=== PATIENT | male | born 1990 | race Caucasian/White ===

== ENCOUNTER 2023-04-05 10:16 | Inpatient (IN) | payer OTHER ==
[2023-04-05 10:31] LABS: Glucose,Whole Blood 105 mg/dL (70-110)
--- NOTE | 2023-04-05 10:52 | ED ---
General Adult HPI - General Chief complaint: Weakness Stated complaint: Leg Weakness Time Seen by Provider: 04/05/23 10:26 Source: patient, EMS, RN notes reviewed Mode of arrival: EMS Limitations: no limitations - History of Present Illness Initial comments: Patient is a pleasant 32-year-old male presenting to the emergency department with concerns with leg problems. Symptoms have been occurring for years, more over the past year. Patient occasionally uses a cane to help her balance. Patient states symptoms may be a little bit worse the last few days. Patient has been at [facility] secondary to opioid and benzodiazepine abuse. Patient amiss to having history of previous IV DA. Patient states symptoms are not significantly worse from baseline. Patient does have discomfort of his knees and feet bilateral. No new isolated area of weakness. No fever. No significant back pain. No incontinence or retention of bowel or bladder. - Related Data Allergies Allergy/AdvReac Type Severity Reaction Status Date / Time No Known Allergies Allergy Verified 04/05/23 10:23 Review of Systems ROS Statement: Those systems with pertinent positive or pertinent negative responses have been documented in the HPI. ROS Other: All systems not noted in ROS Statement are negative. Constitutional: Denies: fever Eyes: Denies: eye pain ENT: Denies: ear pain Respiratory: Denies: cough Cardiovascular: Denies: chest pain Endocrine: Denies: fatigue Gastrointestinal: Denies: abdominal pain Genitourinary: Denies: dysuria Musculoskeletal: Reports: as per HPI Skin: Denies: rash Neurological: Denies: headache, confusion Past Medical History Additional Past Medical History / Comment(s): collapsed lung had a chest tube once- states he is too young to remember why it happened History of Any Multi-Drug Resistant Organisms: None Reported Past Surgical History: No Surgical Hx Reported Past Psychological History: Anxiety, Bipolar, Depression Smoking Status: Current every day smoker Past Alcohol Use History: Occasional Past Drug Use History: Opiates, Prescription Drug Abuse General Exam Limitations: no limitations General appearance: alert, in no apparent distress Head exam: Present: atraumatic Eye exam: Present: normal appearance Neck exam: Present: normal inspection. Absent: tenderness Respiratory exam: Present: normal lung sounds bilaterally Cardiovascular Exam: Present: regular rate, normal rhythm Expanded Peripheral pulses: 2+: Dorsalis Pedis (R), Dorsalis Pedis (L) GI/Abdominal exam: Present: soft. Absent: tenderness Extremities exam: Present: normal inspection, full ROM, tenderness (Minimal tenderness left knee) Back exam: Present: normal inspection. Absent: tenderness Neurological exam: Present: alert. Absent: motor sensory deficit Expanded Neurological exam: Present: protecting the airway Speech: Present: fluid speech Sensory exam: Upper Extremity Light Touch: Normal, Lower Extremity Light Touch: Normal Motor strength exam: RUE: 5, LUE: 5, RLE: 5, LLE: 5 Eye Response: (4) open spontaneously Motor Response: (6) obeys commands Verbal Response: (5) oriented Psychiatric exam: Present: normal affect, normal mood Skin exam: Present: normal color Course Vital Signs 04/05/23 04/05/23 10:18 12:02 Temperature 99.1 F 98.8 F Pulse Rate 51 L 48 L Respiratory 18 18 Rate Blood Pressure 123/80 131/83 O2 Sat by Pulse 98 98 Oximetry EKG Findings - EKG Results: EKG: interpreted by ERMD (Nonspecific ST-T), sinus rhythm, normal axis, normal QRS EKG shows: bradycardia Medical Decision Making - Medical Decision Making Was pt. sent in by a medical professional or institution (, PA, AUTOMATIC SPREADER OPERATOR, urgent care, hospital, or group home...) When possible be specific @ -Patient transferred from [facility] Did you speak to anyone other than the patient for history (EMS, parent, family, police, friend...)? What history was obtained from this source @ -No Did you review nursing and triage notes (agree or disagree)? Why? @ -I reviewed and agree with nursing and triage notes Were old charts reviewed (outside hosp., previous admission, EMS record, old EKG, old radiological studies, urgent care reports/EKG's, group home records)? Report findings @ -Reviewed records from [facility] Differential Diagnosis (chest pain, altered mental status, abdominal pain women, abdominal pain men, vaginal bleeding, weakness, fever, dyspnea, syncope, headache, dizziness, GI bleed, back pain, seizure, CVA, palpatations, mental health, musculoskeletal)? @ -not applicable EKG interpreted by me (3pts min.). @ -As above X-rays interpreted by me (1pt min.). @ -Chest x-ray and the x-ray shows no acute process CT interpreted by me (1pt min.). @ -None done U/S interpreted by me (1pt. min.). @ -None done What testing was considered but not performed or refused? (CT, X-rays, U/S, labs)? Why? @ -None What meds were considered but not given or refused? Why? @ -None Did you discuss the management of the patient with other professionals (professionals i.e. Dr., PA, AUTOMATIC SPREADER OPERATOR, lab, RT, psych nurse, social science teacher, health and safety specialist, teacher, traffic maintenance officer, bottle caser)? Give summary @ -Case was discussed with [facility] emergency department physician Dr. Isaac, will admit covering hospital call. He would like to evaluate patient prior to any consults. Was smoking cessation discussed for >3mins.? @ -No Was critical care preformed (if so, how long)? @ -No Were there social determinants of health that impacted care today? How? (Homelessness, low income, unemployed, alcoholism, drug addiction, transportation, low edu. Level, literacy, decrease access to med. care, fpc, rehab)? @ -Joce MARTEL Was there de-escalation of care discussed even if they declined (Discuss DNR or withdrawal of care, Hospice)? DNR status @ -No What co-morbidities impacted this encounter? (DM, HTN, Smoking, COPD, CAD, Cancer, CVA, ARF, Chemo, Hep., AIDS, mental health diagnosis, sleep apnea, morbid obesity)? @ -None Was patient admitted / discharged? Hospital course, mention meds given and route, prescriptions, significant lab abnormalities, going to OR and other pertinent info. @ -Patient visualized with difficulty with gait even while using a walker. Patient will be admitted for further evaluation. Undiagnosed new problem with uncertain prognosis? @ -No Drug Therapy requiring intensive monitoring for toxicity (Heparin, Nitro, Insulin, Cardizem)? @ -No Were any procedures done? @ -No Diagnosis/symptom? @ -Gait abnormality Acute, or Chronic, or Acute on Chronic? @ -Acute Uncomplicated (without systemic symptoms) or Complicated (systemic symptoms)? @ -default Side effects of treatment? @ -No Exacerbation, Progression, or Severe Exacerbation? @ -No Poses a threat to life or bodily function? How? (Chest pain, [place], AR, pneumonia, PE, COPD, DKA, ARF, appy, cholecystitis, CVA, Diverticulitis, Homicidal, Suicidal, threat to staff... and all critical care pts) @ -No - Lab Data Result diagrams: 04/05/23 11:02 04/05/23 11:02 Lab Results 04/05/23 04/05/23 04/05/23 Range/Units 10:29 11:02 11:02 WBC 11.6 H (3.8-10.6) k/uL RBC 4.88 (4.30-5.90) m/uL Hgb 15.6 (13.0-17.5) gm/dL Hct 43.5 (39.0-53.0) % MCV 89.1 (80.0-100.0) fL MCH 32.0 (25.0-35.0) pg MCHC 35.9 (31.0-37.0) g/dL RDW 12.8 (11.5-15.5) % Plt Count 246 (150-450) k/uL MPV 6.8 Neutrophils % 89 % Lymphocytes % 5 % Monocytes % 5 % Eosinophils % 1 % Basophils % 0 % Neutrophils # 10.3 H (1.3-7.7) k/uL Lymphocytes # 0.6 L (1.0-4.8) k/uL Monocytes # 0.6 (0-1.0) k/uL Eosinophils # 0.1 (0-0.7) k/uL Basophils # 0.0 (0-0.2) k/uL PT (9.0-12.0) sec INR (<1.2) APTT (22.0-30.0) sec Sodium 140 (137-145) mmol/L Potassium 3.6 (3.5-5.1) mmol/L Chloride 97 L (98-107) mmol/L Carbon Dioxide 25 (22-30) mmol/L Anion Gap 18 mmol/L BUN 21 H (9-20) mg/dL Creatinine 0.83 (0.66-1.25) mg/dL Est GFR (CKD-EPI)AfAm >90 (>60 ml/min/1.73 sqM) Est GFR (CKD-EPI)NonAf >90 (>60 ml/min/1.73 sqM) Glucose 105 H (74-99) mg/dL POC Glucose (mg/dL) 105 (70-110) mg/dL POC Glu Canine Enforcement Officer ID Orion Manzo Plasma Lactic Acid Kevin (0.7-2.0) mmol/L Uric Acid 9.4 H (3.5-8.5) mg/dL Calcium 9.6 (8.4-10.2) mg/dL Magnesium 2.4 H (1.6-2.3) mg/dL Total Bilirubin 1.2 (0.2-1.3) mg/dL AST 51 (17-59) U/L ALT 89 H (4-49) U/L Alkaline Phosphatase 56 (38-126) U/L C-Reactive Protein <0.5 (<1.0) mg/dL Total Protein 9.1 H (6.3-8.2) g/dL Albumin 5.0 (3.5-5.0) g/dL Urine Color Urine Appearance (Clear) Urine pH (5.0-8.0) Ur Specific [place] (1.001-1.035) Urine Protein (Negative) Urine Glucose (UA) (Negative) Urine Ketones (Negative) Urine Blood (Negative) Urine Nitrite (Negative) Urine Bilirubin (Negative) Urine Urobilinogen (<2.0) mg/dL Ur Leukocyte Esterase (Negative) Urine RBC (0-5) /hpf Urine WBC (0-5) /hpf Ur Squamous Epith Cells (0-4) /hpf Hyaline Casts (0-2) /lpf Urine Mucus (None) /hpf 04/05/23 04/05/23 04/05/23 Range/Units 11:02 11:02 11:58 WBC (3.8-10.6) k/uL RBC (4.30-5.90) m/uL Hgb (13.0-17.5) gm/dL Hct (39.0-53.0) % MCV (80.0-100.0) fL MCH (25.0-35.0) pg MCHC (31.0-37.0) g/dL RDW (11.5-15.5) % Plt Count (150-450) k/uL MPV Neutrophils % % Lymphocytes % % Monocytes % % Eosinophils % % Basophils % % Neutrophils # (1.3-7.7) k/uL Lymphocytes # (1.0-4.8) k/uL Monocytes # (0-1.0) k/uL Eosinophils # (0-0.7) k/uL Basophils # (0-0.2) k/uL PT 11.2 (9.0-12.0) sec INR 1.1 (<1.2) APTT 24.3 (22.0-30.0) sec Sodium (137-145) mmol/L Potassium (3.5-5.1) mmol/L Chloride (98-107) mmol/L Carbon Dioxide (22-30) mmol/L Anion Gap mmol/L BUN (9-20) mg/dL Creatinine (0.66-1.25) mg/dL Est GFR (CKD-EPI)AfAm (>60 ml/min/1.73 sqM) Est GFR (CKD-EPI)NonAf (>60 ml/min/1.73 sqM) Glucose (74-99) mg/dL POC Glucose (mg/dL) (70-110) mg/dL POC Glu Canine Enforcement Officer ID Plasma Lactic Acid Kevin 1.4 (0.7-2.0) mmol/L Uric Acid (3.5-8.5) mg/dL Calcium (8.4-10.2) mg/dL Magnesium (1.6-2.3) mg/dL Total Bilirubin (0.2-1.3) mg/dL AST (17-59) U/L ALT (4-49) U/L Alkaline Phosphatase (38-126) U/L C-Reactive Protein (<1.0) mg/dL Total Protein (6.3-8.2) g/dL Albumin (3.5-5.0) g/dL Urine Color Light Red Urine Appearance Clear (Clear) Urine pH 6.5 (5.0-8.0) Ur Specific [place] 1.039 H (1.001-1.035) Urine Protein 2+ H (Negative) Urine Glucose (UA) Negative (Negative) Urine Ketones 4+ H (Negative) Urine Blood Negative (Negative) Urine Nitrite Negative (Negative) Urine Bilirubin 1+ H (Negative) Urine Urobilinogen 2.0 (<2.0) mg/dL Ur Leukocyte Esterase Negative (Negative) Urine RBC 3 (0-5) /hpf Urine WBC 2 (0-5) /hpf Ur Squamous Epith Cells <1 (0-4) /hpf Hyaline Casts 1 (0-2) /lpf Urine Mucus Few H (None) /hpf Disposition Clinical Impression: Gait abnormality Disposition: ADMITTED IP TO THIS HOSP Is patient prescribed a controlled substance at d/c from ED?: No Referrals: None,Stated [Primary Care Provider] - 1-2 days Time of Disposition: 14:00
[2023-04-05 11:10] LABS: Basophils % (A) 0 %; Eosinophils # (A) 0.1 k/uL (0-0.7); Eosinophils % (A) 1 %; HCT 43.5 % (39.0-53.0); HGB 15.6 gm/dL (13.0-17.5); Lymphocytes # (A) 0.6 k/uL (1.0-4.8); Lymphocytes % (A) 5 %; MCHC 35.9 g/dL (31.0-37.0); MCV 89.1 fL (80.0-100.0); Mean Platelet Volume 6.8; Monocytes # (A) 0.6 k/uL (0-1.0); Monocytes % (A) 5 %; Neutrophils # (A) 10.3 k/uL (1.3-7.7); Neutrophils % (A) 89 %; Platelet Count 246 k/uL (150-450); RBC 4.88 m/uL (4.30-5.90); RDW 12.8 % (11.5-15.5); WBC 11.6 k/uL (3.8-10.6)
[2023-04-05 11:18] LABS: INR 1.1 (<1.2); Partial Thromboplastin Time 24.3 sec (22.0-30.0); Prothrombin Time 11.2 sec (9.0-12.0)
[2023-04-05 11:36] LABS: ALT 89 U/L (4-49); AST 51 U/L (17-59); African American GFR (CKD) >90 (>60 ml/min/1.73 sqM); Alkaline Phosphatase 56 U/L (38-126); Anion Gap 18 mmol/L; Blood Urea Nitrogen 21 mg/dL (9-20); C Reactive Protein <0.5 mg/dL (<1.0); Calcium 9.6 mg/dL (8.4-10.2); Carbon Dioxide 25 mmol/L (22-30); Chloride 97 mmol/L (98-107); Glucose 105 mg/dL (74-99); Magnesium 2.4 mg/dL (1.6-2.3); Non-African American GFR(CKD) >90 (>60 ml/min/1.73 sqM); Potassium 3.6 mmol/L (3.5-5.1); Sodium 140 mmol/L (137-145); Total Bilirubin 1.2 mg/dL (0.2-1.3); Total Protein 9.1 g/dL (6.3-8.2); Uric Acid 9.4 mg/dL (3.5-8.5)
--- NOTE | 2023-04-05 11:40 | XR ---
EXAMINATION TYPE: XR chest 2V DATE OF EXAM: 04/05/2023 COMPARISON: NONE HISTORY: Chest pain TECHNIQUE: Frontal and lateral views of the chest are obtained. FINDINGS: There is no focal air space opacity. No evidence for pneumothorax. No pleural effusion. The cardiac silhouette size is within normal limits. The osseous structures are grossly intact. IMPRESSION: 1. No acute cardiopulmonary process.
--- NOTE | 2023-04-05 11:43 | XR ---
EXAMINATION TYPE: XR knee complete bilateral DATE OF EXAM: 04/05/2023 CLINICAL HISTORY: pain TECHNIQUE: Three views of the bilateral knees are obtained. COMPARISON: None. FINDINGS: There is no acute fracture/dislocation. The tri-compartment joint spaces appear within no rmal limits. The overlying soft tissue appears unremarkable. IMPRESSION: There is no acute fracture or dislocation ICD 10 NO FRACTURE, INITIAL EVALUATION
[2023-04-05 12:40] LABS: Appearance,Urine Clear (Clear); Bilirubin,Urine 1+ (Negative); Blood,Urine Negative (Negative); Color,Urine Light Red; Glucose,Urine (UA) Negative (Negative); Hyaline Casts,Urine 1 /lpf (0-2); Ketones,Urine 4+ (Negative); Leukocyte Esterase,Urine Negative (Negative); Mucus,Urine Few /hpf; Nitrite,Urine Negative (Negative); PH, Urine 6.5 (5.0-8.0); Protein,Urine 2+ (Negative); RBC,Urine 3 /hpf (0-5); Specific Gravity,Urine 1.039 (1.001-1.035); Squamous Epithelial Cell,Urine <1 /hpf (0-4); WBC,Urine 2 /hpf (0-5)
[2023-04-05] MEDS ORDERED: NALOXONE 0.4 MG/ML 1 ML VIAL IV PRN (14:00)
[2023-04-05] MEDS ORDERED: ONDANSETRON 4 MG/2 ML VIAL IVP STA (14:09)
--- NOTE | 2023-04-05 17:03 | P.HPIM ---
History of Present Illness H&P Date: 04/05/23 History of Presenting Illness: Patient is a pleasant 32-year-old male with a past medical history of pneumothorax requiring chest tube placement, anxiety, bipolar, depression, elaine otine dependence, opioid and benzodiazepine dependency and abuse with previous IVDA. Patient presented to the emergency department from [facility] secondary to reports of progressively worsening lower extremity weakness. Patient reportedly began walking with a cane to assist with balance just over a year ago and reports symptoms have progressively worsened over the last year and rapidly worsened over the last few days. He denies experiencing any numbness or tingling in his legs. He does report tingling in the tips of his fingers. . Patient underwent evaluation in the emergency department. EKG was completed showing sinus bradycardia at 51 bpm. Chest x-ray completed negative for acute ca rdiopulmonary process. X-ray bilateral knees was completed and again negative for acute fracture or dislocation. ED provider reported patient was walked in the ER and it was visualized that patient was having difficulties with ambulation was significantly abnormal gait even when using walker. Case was thoroughly discussed with ED physician, patient admitted under our services to observation unit with consult neurology. labs completed and reviewed. CBC unremarkable with the exception of mild leukocytosis with WBC count of 11.6,coagulation profile normal findings, BMP revealing mild hypochloremia with chloride of 97, bicarb 25, and anion gap elevated st 18 and slightly elevated BUN of 21 otherwise normal findings. Blood glucose 105. Lactic acid 1.4. CRP < 0.5. Uric acid slightly elevated at 9.4 and magnesium elevated at 2.4. Liver profile showing slightly elevated ALT of 89 otherwise normal findings. Urinalysis positive for protein, ketones, and bilirubin. Discussed patient histo ry, physical exam findings, laboratory results in detail with the ED physician. Patient being admitted under our services. Review of systems: Pertinent positives and negatives as discussed in HPI, a complete review of systems was performed and all other systems are negative. Physical exam: Vital signs reviewed and stable. General: Nontoxic, no distress and appears stated age. Derm: Skin warm and dry, normal coloration for ethnicity. Head: Atraumatic, normocephalic and symmetric. Eyes: EOMs intact, no lid lag, and anicteric sclera Mouth: no lip lesions, mucus membranes moist Cardiovascular: regular rate and rhythm with normal S1S2, no murmur, positive posterior tibial pulses bilaterally, and cap refill < 2 seconds. Lungs: Respirations even, regular, and unlabored on room air. Lungs CTA bilaterally, no rhonchi, no rales, no wheezing, and no accessory muscle usage. Abdominal: soft, nontender to palpation, no guarding, no appreciable organomegaly Ext: No gross muscle atrophy, no edema, no contractures. Movement and sensation intact.. Neuro: Face symmetrical and CN II-XII grossly intact. Speech stuttering noted, GCS 15. Pt has 3/5 plantar flexion, and 2/5 dorsiflexion but difficult to decipher if participation played a role in these finding. Psych: Alert and oriented to person, place, time, and situation. Appropriate and pleasant affect. Assessment and Plan of Care: Bilateral lower extremity weakness, presently worsening. Anxiety and Depression Bipolar Disorder Polysubstance abuse with opioids, benzodiazepines, and previous IVDA Nicotine dependence Patient reports progressively worsening bilateral lower extremity weakness difficulties with gait 1 year rapidly worsening over the past few days. Placed consult to neurology. Neuro checks Order placed for his CT lumbar spine and upon follow-up with results showing disc bulge at L4 through S1 contributing to moderate right neural foraminal stenosis with contact of the exiting L5 nerve root, L4 through L5 disc bulge with mild spinal canal and neural little stenosis, and multilevel mild facet arthropathy. Consult placed to orthospine surgery. Fall precautions Symptomatic care and pain management, Toradol 15 mg IVP every 6 hours May be administered as needed for [id number] pain. IV fluid hydration with 0.9% normal saline at 130 mL's per hour. Consult placed to PT/OT -Order placed for B12, Folate, and Thiamine CODE STATUS: Full Code DVT prophylaxis: Lovenox Discussed with: Pt, ED physician, and RN Anticipated discharge date: clinical course to determine Anticipated discharge place: Home Patient was seen independently by Nurse Practitioner. This document was prepared using [employer] dictation software. Please allow for errors in lithograph press operator while rare they do occur. I reviewed the documentation as provided by the VIPIN above, who is the original author of this note. I agree with the documented assessment and plan, with the following changes: none Past Medical History Additional Past Medical History / Comment(s): collapsed lung had a chest tube once- states he is too young to remember why it happened History of Any Multi-Drug Resistant Organisms: None Reported Past Surgical History: No Surgical Hx Reported Past Psychological History: Anxiety, Bipolar, Depression Smoking Status: Current every day smoker Past Alcohol Use History: Occasional Past Drug Use History: Opiates, Prescription Drug Abuse Medications and Allergies Home Medications Medication Instructions Recorded Confirmed Type Acetaminophen Tab [Tylenol] 650 mg PO Q4H PRN 04/05/23 04/05/23 History Calcium/Magnesium/Zinc/Vitamin D 1 tab PO TID PRN 04/05/23 04/05/23 History Chlorpheniramine Maleate 4 mg PO Q4H PRN 04/05/23 04/05/23 History [Chlor-Trimeton] Ibuprofen [Motrin Ib] 600 mg PO Q6H PRN 04/05/23 04/05/23 History Loperamide HCl [Imodium A-D] 4 mg PO QID PRN 04/05/23 04/05/23 History Melatonin 5 mg PO HS 04/05/23 04/05/23 History Multivitamins, Thera [Multivitamin 1 tab PO DAILY 04/05/23 04/05/23 History (formulary)] Zofran 2ml (4mg) Dilution Injection 2 ml IM Q6H PRN 04/05/23 04/05/23 History cloNIDine HCL [Catapres] 0.1 mg PO Q4H PRN 04/05/23 04/05/23 History ondansetron HCL [Ondansetron HCl] 8 mg PO Q6H PRN 04/05/23 04/05/23 History Allergies Allergy/AdvReac Type Severity Reaction Status Date / Time No Known Allergies Allergy Verified 04/05/23 14:16 Physical Exam Osteopathic Statement: *. No significant issues noted on an osteopathic structural exam other than those noted in the History and Physical/Consult. Vitals: Vital Signs Temp Pulse Resp BP Pulse Ox 04/05/23 12:02 98.8 F 48 L 18 131/83 98 04/05/23 10:18 99.1 F 51 L 18 123/80 98 Intake and Output 04/04/23 04/05/23 04/05/23 22:59 06:59 14:59 Other: Weight 63.503 kg Results CBC & Chem 7: 04/06/23 09:09 04/06/23 07:25 Labs: Abnormal Lab Results - Last 24 Hours (Table) 08/08/1604/05/23 04/05/23 Range/Units 11:02 11:02 11:58 WBC 11.6 H (3.8-10.6) k/uL Neutrophils # 10.3 H (1.3-7.7) k/uL Lymphocytes # 0.6 L (1.0-4.8) k/uL Chloride 97 L (98-107) mmol/L BUN 21 H (9-20) mg/dL Glucose 105 H (74-99) mg/dL Uric Acid 9.4 H (3.5-8.5) mg/dL Magnesium 2.4 H (1.6-2.3) mg/dL ALT 89 H (4-49) U/L Total Protein 9.1 H (6.3-8.2) g/dL Ur Specific [place] 1.039 H (1.001-1.035) Urine Protein 2+ H (Negative) Urine Ketones 4+ H (Negative) Urine Bilirubin 1+ H (Negative) Urine Mucus Few H (None) /hpf
--- NOTE | 2023-04-05 18:29 | CT ---
EXAMINATION TYPE: CT lumbar spine wo con DATE OF EXAM: 04/05/2023 3:26 PM COMPARISON: None HISTORY: Pt started using a walker about a year ago for bilateral leg weakness, pt never seen a docto r for it until now. Leg weakness is worsening. CT DLP: 613.8 mGycm Automated exposure control for dose reduction was used. Unenhanced CT of the lumbar spine was performed. Bone and soft tissue window settings are submitted as well as coronal and sagittal reconstructions. L1-L2: Normal disc space height. No disc herniation protrusion or central stenosis. No facet joint arthropathy. No evidence for foraminal encroachment. L2-L3: Posterior disc bulge without significant spinal canal stenosis. The neural foramina are patent bilaterally. L3-L4: Normal disc space height. No disc herniation protrusion or central stenosis. No facet joint arthropathy. No evidence for foraminal encroachment. L4-L5: Posterior disc bulge which in addition to hypertrophy of the ligamentum flavum contributes to mild spinal canal narrowing. Mild bilateral neural foraminal stenosis. L5-S1: Diffuse disc bulge without significant spinal canal stenosis. Disc bulge in addition to facet atrophy resulting in moderate right neural foraminal stenosis. Disc bulge contacts the exiting right L5 nerve root. Mild left neural foraminal stenosis. Other: The visualized soft tissues and paraspinal musculature is symmetric. IMPRESSION: 1. Disc bulge at L5-S1 contributing to moderate right neural foraminal stenosis with contact of the e xiting L5 nerve root. 2. L4-L5 disc bulge with mild spinal canal and neural foraminal stenosis. 3. Multilevel mild facet arthropathy.
[2023-04-05] MEDS ORDERED: KETOROLAC 15 MG/ML 1 ML VIAL IVP PRN (18:37)
[2023-04-05] MEDS: ONDANSETRON 4 MG/2 ML VIAL IVP PRN (18:46)
[2023-04-05] MEDS: SODIUM CHLORIDE 0.9% 1,000 ML IV SCH (20:58)
[2023-04-05] MEDS: MELATONIN 5 MG TABLET PO SCH (20:58)
[2023-04-05] MEDS ORDERED: NICOTINE 7MG/24HR PATCH TRANSDERM STA (21:33)
[2023-04-06] MEDS: ONDANSETRON 4 MG/2 ML VIAL IVP PRN ×3 (00:39→15:14)
[2023-04-06] MEDS: SODIUM CHLORIDE 0.9% 1,000 ML IV SCH ×3 (02:31→20:45)
[2023-04-06 07:44] LABS: Rheumatoid Factor, Qnt 40 IU/mL (0-15)
[2023-04-06 07:53] LABS: ALT 61 U/L (4-49); African American GFR (CKD) >90 (>60 ml/min/1.73 sqM); Albumin 4.2 g/dL (3.5-5.0); Albumin/Globulin Ratio 1.3; Anion Gap 10 mmol/L; Blood Urea Nitrogen 21 mg/dL (9-20); Calcium 8.9 mg/dL (8.4-10.2); Carbon Dioxide 24 mmol/L (22-30); Chloride 107 mmol/L (98-107); Globulin 3.3 g/dL; Glucose 108 mg/dL (74-99); Non-African American GFR(CKD) >90 (>60 ml/min/1.73 sqM); Sodium 141 mmol/L (137-145); Total Bilirubin 1.2 mg/dL (0.2-1.3); Total Protein 7.5 g/dL (6.3-8.2)
[2023-04-06] MEDS: ENOXAPARIN 40 MG/0.4 ML SYRINGE SQ SCH (07:58)
[2023-04-06] MEDS: MULTIVITAMINS, THERA 1 EACH TAB PO SCH (07:58)
[2023-04-06 08:01] LABS: AST 34 U/L (17-59); Alkaline Phosphatase 43 U/L (38-126); Magnesium 2.4 mg/dL (1.6-2.3); Potassium 4.4 mmol/L (3.5-5.1)
[2023-04-06 10:29] LABS: Basophils % (A) 0 %; Eosinophils # (A) 0.1 k/uL (0-0.7); Eosinophils % (A) 1 %; HCT 39.1 % (39.0-53.0); HGB 14.4 gm/dL (13.0-17.5); Lymphocytes # (A) 0.7 k/uL (1.0-4.8); Lymphocytes % (A) 7 %; MCHC 36.9 g/dL (31.0-37.0); MCV 89.4 fL (80.0-100.0); Mean Platelet Volume 8.2; Monocytes # (A) 0.6 k/uL (0-1.0); Monocytes % (A) 6 %; Neutrophils # (A) 9.2 k/uL (1.3-7.7); Neutrophils % (A) 86 %; Platelet Count 199 k/uL (150-450); RBC 4.37 m/uL (4.30-5.90); RDW 12.9 % (11.5-15.5); WBC 10.7 k/uL (3.8-10.6)
--- NOTE | 2023-04-06 12:36 | P.CNNES ---
History of Present Illness Consult date: 04/06/23 History of Present Illness: The patient is a 32-year-old male who is seen in neurologic consultation on April 06, 2023, in collaboration with Kathy Urrutia, via teleneurology. History is obtained from the patient as well as review of the chart. The patient reports that he was sent to the hospital from [place] because they were "concerned about my walking abilities". The patient was reportedly admitted to [place] proximally 5 days ago. The patient reports that his walking has become poor since he began opiate withdrawal a few days ago. Reports a sudden onset of weakness in his legs. The right leg is reportedly worse than the left leg. The patient reports occasional mid back pain. In addition, the patient reports intermittent paresthesias in his feet and legs. He says he has mild weakness in his upper extremities. The patient denies diff iculty breathing. He denies difficulty with bowel and bladder control. He denies saddle anesthesia. This history is somewhat different than that obtained by the history and physical as well as emergency department note the patient reports that his difficulty ambulating is new. According to nursing, the patient reportedly has generalized weakness. When asked about his ability to control his urine and a sense the need to urinate the patient states "I'm not making a lot of urine at the moment". The patient denies having had a bowel movement. He does report passing gas. Denies headache. He reports nausea and an episode of "spotty" vision associated with receiving his subcutaneous heparin injection. CT scan of the lumbar spine reports moderate neural foraminal narrowing at L5-S1 on the right. Past Medical History Additional Past Medical History / Comment(s): collapsed lung had a chest tube once- states he is too young to remember why it happened History of Any Multi-Drug Resistant Organisms: None Reported Past Surgical History: No Surgical Hx Reported Past Psychological History: Anxiety, Bipolar, Depression Smoking Status: Current every day smoker Past Alcohol Use History: Occasional Past Drug Use History: Opiates, Prescription Drug Abuse Medications and Allergies Home Medications Medication Instructions Recorded Confirmed Type Acetaminophen Tab [Tylenol] 650 mg PO Q4H PRN 04/05/23 04/05/23 History Calcium/Magnesium/Zinc/Vitamin D 1 tab PO TID PRN 04/05/23 04/05/23 History Chlorpheniramine Maleate 4 mg PO Q4H PRN 04/05/23 04/05/23 History [Chlor-Trimeton] Ibuprofen [Motrin Ib] 600 mg PO Q6H PRN 04/05/23 04/05/23 History Loperamide HCl [Imodium A-D] 4 mg PO QID PRN 04/05/23 04/05/23 History Melatonin 5 mg PO HS 04/05/23 04/05/23 History Multivitamins, Thera [Multivitamin 1 tab PO DAILY 04/05/23 04/05/23 History (formulary)] Zofran 2ml (4mg) Dilution Injection 2 ml IM Q6H PRN 04/05/23 04/05/23 History cloNIDine HCL [Catapres] 0.1 mg PO Q4H PRN 04/05/23 04/05/23 History ondansetron HCL [Ondansetron HCl] 8 mg PO Q6H PRN 04/05/23 04/05/23 History Allergies Allergy/AdvReac Type Severity Reaction Status Date / Time No Known Allergies Allergy Verified 04/05/23 14:16 Physical Examination - Vital Signs Vital Signs: Vital Signs Temp Pulse Pulse Resp BP BP Pulse Ox 04/06/23 00:36 98.6 F 45 L 17 144/83 98 04/05/23 19:48 99.8 F H 52 L 16 128/74 94 L 04/05/23 18:28 60 16 122/67 97 04/05/23 14:12 49 L 18 137/81 98 04/05/23 12:02 98.8 F 48 L 18 131/83 98 04/05/23 10:18 99.1 F 51 L 18 123/80 98 Intake and Output 04/05/23 04/06/23 04/06/23 22:59 06:59 14:59 Output Total 1 Balance -1 Output: Emesis 1 Other: Voiding Method Urinal Weight 63.503 kg Gen.: The patient is reclining in the bed. He is well-nourished, well-developed and in no acute distress. The patient is observed to using his arms and legs, without difficulty, to reposition himself in the bed. HEENT: Head is atraumatic, normocephalic. Fundus not visualized. There is no scleral icterus. Mucous membranes are moist Neck: Supple without carotid bruits Heart: Regular rate and rhythm Lungs: Clear to auscultation Extremities: Without edema Neurological examination Mental status: The patient is awake, alert and oriented 3. His eye contact is poor. His affect is flat. The patient's speech is clear. Cranial nerves: Pupils are equal at 4 mm and reactive. Visual jacinto are full to confrontation. Extraocular movements are intact. There is no nystagmus. Facial sensations reportedly diminished in the left V2 distribution. There is no facial asymmetry. Hearing is grossly intact. Uvula and palate are midline. Shoulder shrug is symmetric. Tongue protrudes midline. Motor: Bilateral intake nurse strength 4/5. Other muscles, right side will be listed first-triceps 3/4. Biceps 3/4. Hip flexors 3/4. Overall, there appears to be Inconsistent effort. Coordination: Finger to nose, rapid alternating movements and [id number] testing are intact. Deep tendon reflexes: 2+/4+ throughout. Plantar responses are flexor bilaterally. Gait: Not assessed Results - Laboratory Findings CBC and BMP: 04/06/23 09:09 04/06/23 07:25 Abnormal Lab Findings: Abnormal Labs 04/05/23 04/05/23 04/05/23 11:02 11:02 11:58 WBC 11.6 H Neutrophils # 10.3 H Lymphocytes # 0.6 L Chloride 97 L BUN 21 H Glucose 105 H Uric Acid 9.4 H Magnesium 2.4 H ALT 89 H Total Protein 9.1 H Ur Specific [place] 1.039 H Urine Protein 2+ H Urine Ketones 4+ H Urine Bilirubin 1+ H Urine Mucus Few H Rheumatoid Factor 40 H Assessment and Plan Assessment: 1. Reported generalized weakness, worse in the lower extremities, especially right lower extremity. The patient reports to me, that this is new over the past 3 days. There are no signs of cord compression on examination. There is no sensory level. There are no increased reflexes or extensor plantar responses. In addition, the patient's weakness and reported paresthesias are not consistent with cauda equina syndrome nor are they consistent with Guillain-Markham syndrome. 2. History of Polysubstance abuse 3. History of bipolar disorder 4. History of anxiety Plan: 1. We will order labs to further assess for etiology of muscle weakness 2. Physical therapy to evaluate patient 3. Urine drug screen has been ordered Thank you for allowing us to participate in the care of this patient Dr. Alejandro Che will assume neurologic coverage of this patient as of April 07, 2023 Time with Patient: Greater than 30 (45 minutes were spent caring for this patient today including, obtaining a history, examining the patient, reviewing imaging, chart documentation, labs, placing orders and creating this note)
[2023-04-06 12:39] LABS: Amphetamine Screen,Urine Not Detected (NotDetected); Barbiturate Screen,Urine Detected (NotDetected); Benzodiazepines Screen,Urine Not Detected (NotDetected); Cocaine Screen,Urine Not Detected (NotDetected); Methadone Screen, Urine Not Detected (NotDetected); Opiate Screen,Urine Not Detected (NotDetected); Oxycodone Screen, Urine Not Detected (NotDetected); Phencyclidine Screen,Urine Not Detected (NotDetected); Tricyclic Antidepressant,Urine Not Detected (NotDetected); Urn Cannabinoid Scrn Detected (NotDetected)
[2023-04-06 15:10] LABS: Calcium 8.8 mg/dL (8.4-10.2); Creatine Kinase 26 U/L (55-170); Magnesium 2.3 mg/dL (1.6-2.3)
--- NOTE | 2023-04-06 19:11 | P.PN ---
Subjective Progress Note Date: 04/06/23 Hospital Course: Patient is a pleasant 32-year-old male with a past medical history of pneumothorax requiring chest tube placement, anxiety, bipolar, depression, n icotine dependence, opioid and benzodiazepine dependency and abuse with previous IVDA. Patient presented to the emergency department from [place] secondary to reports of progressively worsening lower extremity weakness. Patient reportedly began walking with a cane to assist with balance just over a year ago and reports symptoms have progressively worsened over the last year and rapidly worsened over the last few days. He denies experiencing any numbness or tingling in his legs. He does report tingling in the tips of his fingers. . Patient underwent evaluation in the emergency department. EKG was completed showing sinus bradycardia at 51 bpm. Chest x-ray completed negative for acute cardiopulmonary process. X-ray bilateral knees was completed and again negative for acute fracture or dislocation. ED provider reported patient was walked in the ER and it was visualized that patient was having difficulties with ambulation was significantly abnormal gait even when using walker. Case was thoroughly discussed with ED physician, patient admitted under our services to observation unit with consult neurology. labs completed and reviewed. CBC unremarkable with the exception of mild leukocytosis with WBC count of 11.6,coagulation profile normal findings, BMP revealing mild hypochloremia with chloride of 97, bicarb 25, and anion gap elevated st 18 and slightly elevated BUN of 21 otherwise normal findings. Blood glucose 105. Lactic acid 1.4. CRP < 0.5. Uric acid slightly elevated at 9.4 and magnesium elevated at 2.4. Liver profile showing slightly elevated ALT of 89 otherwise normal findings. Urinalysis positive for protein, ketones, and bilirubin. Discussed patient his tory, physical exam findings, laboratory results in detail with the ED physician. Patient being admitted under our services. Order placed for his CT lumbar spine and upon follow-up with results showing disc bulge at L4 through S1 contributing to moderate right neural foraminal stenosis with contact of the exiting L5 nerve root, L4 through L5 disc bulge with mild spinal canal and neural foraminal stenosis, and multilevel mild facet arthropathy. Consult placed to orthospine surgery Physical exam: Vital signs reviewed and stable. General: Nontoxic, no distress and appears stated age. Thin emaciated appearance Derm: Skin warm and dry, normal coloration for ethnicity. Head: Atraumatic, normocephalic and symmetric. Eyes: EOMs intact, no lid lag, and anicteric sclera Mouth: no lip lesions, mucus membranes moist Cardiovascular: regular rate and rhythm with normal S1S2, no murmur, positive posterior tibial pulses bilaterally, and cap refill < 2 seconds. Lungs: Respirations even, regular, and unlabored on room air. Lungs CTA bilaterally, no rhonchi, no rales, no wheezing, and no accessory muscle usage. Abdominal: soft, nontender to palpation, no guarding, no appreciable organomegaly Ext: No gross muscle atrophy, no edema, no contractures. Movement and sensation intact.. Neuro: Face symmetrical and CN II-XII grossly intact. Speech stuttering noted, GCS 15. Pt has 3/5 plantar flexion, and 2/5 dorsiflexion but difficult to decipher if participation played a role in these finding. Psych: Alert and oriented to person, place, time, and situation. Appropriate and pleasant affect. Assessment and Plan of Care: Bilateral lower extremity weakness, presently worsening. Bulging of intervertebral disks between L4 and L5 Anxiety and Depression Bipolar Disorder Polysubstance abuse with opioids, benzodiazepines, and previous IVDA Nicotine dependence Patient reports progressively worsening bilateral lower extremity weakness difficulties with gait 1 year rapidly worsening over the past few days. Placed consult to neurology. Reviewed documentation in chart. Neurology ordered calcium, creatinine kidneys, Lyme antibodies, magnesium, and myoglobin. Neuro checks to continue CT lumbar spine disc bulge at L4 through S1 contributing to moderate right neural foraminal stenosis with contact of the exiting L5 nerve root, L4 through L5 disc bulge with mild spinal canal and neural foraminal stenosis, and multilevel mild facet arthropathy. Consult placed to orthospine surgery and discussed plan of care with Dr. García recommending MRI thoracic and lumbar spine and his team will evaluate tomorrow. Fall precautions Symptomatic care and pain management, Toradol 15 mg IVP every 6 hours May be administered as needed for [id number] pain. IV fluid hydration with 0.9% normal saline at 130 mL's per hour. Consult placed to PT/OT -B12 normal findings at 646, Folate also normal findings at 24.80. Thiamine pending. -Rheumatoid factor elevated at 40. Order placed for ESR and BAYRON. May also consider ankylosing spondylitis, however CRP < 0.5 and ESR normal findings at 4. Asymptomatic bradycardia -Heart rate runs 40s to 50s, this is patient's baseline and he denies any complaints/symptoms resulting from this bradycardia. -We will order a TSH with free T4 Data review: Vital signs stable blood pressure 121/65, heart rate 42, respiratory rate 14, temp 98.9F, SpO2 98% on room air. Morning labs reviewed and stable. CBC showed mild leukocytosis with WBC count of 10.7 otherwise normal findings. BMP revealing slightly elevated BUN of 21 otherwise normal findings. Blood glucose 108. Magnesium 2.4. Calcium 8.9. Liver profile showing elevated ALT of 61. Vitamin B12 646 and folate of 24.80. ESR normal findings at 4. Urine drug screen positive for barbiturates and marijuana. Data review: CODE STATUS: Full Code DVT prophylaxis: Lovenox Discussed with: Pt, orthopedic surgeon and RN Anticipated discharge date: clinical course to determine Anticipated discharge place: Home Patient was seen independently by Nurse Practitioner. This document was prepared using [employer] dictation software. Please allow for errors in bi application developer while rare they do occur. I reviewed the documentation as provided by the VIPIN above, who is the original author of this note. I agree with the documented assessment and plan, with the following changes: none Objective - Vital Signs Vital signs: Vital Signs Temp 98.9 F 04/06/23 07:00 Pulse 42 L 04/06/23 07:00 Resp 14 04/06/23 07:00 BP 121/65 04/06/23 07:00 Pulse Ox 98 04/06/23 08:26 FiO2 Intake & Output 04/05/23 04/06/23 04/06/23 18:59 06:59 18:59 Output Total 1 Balance -1 Weight 63.503 kg 63.503 kg Output: Emesis 1 Other: Voiding Method Urinal - Labs CBC & Chem 7: 04/07/23 06:01 04/06/23 07:25 Labs: Abnormal Lab Results - Last 24 Hours (Table) 04/05/23 04/05/23 04/05/23 Range/Units 11:02 11:02 11:58 WBC 11.6 H (3.8-10.6) k/uL Neutrophils # 10.3 H (1.3-7.7) k/uL Lymphocytes # 0.6 L (1.0-4.8) k/uL Chloride 97 L (98-107) mmol/L BUN 21 H (9-20) mg/dL Glucose 105 H (74-99) mg/dL Uric Acid 9.4 H (3.5-8.5) mg/dL Magnesium 2.4 H (1.6-2.3) mg/dL ALT 89 H (4-49) U/L Total Protein 9.1 H (6.3-8.2) g/dL Ur Specific [place] 1.039 H (1.001-1.035) Urine Protein 2+ H (Negative) Urine Ketones 4+ H (Negative) Urine Bilirubin 1+ H (Negative) Urine Mucus Few H (None) /hpf Rheumatoid Factor 40 H (0-15) IU/mL 04/06/23 Range/Units 07:25 WBC (3.8-10.6) k/uL Neutrophils # (1.3-7.7) k/uL Lymphocytes # (1.0-4.8) k/uL Chloride (98-107) mmol/L BUN 21 H (9-20) mg/dL Glucose 108 H (74-99) mg/dL Uric Acid (3.5-8.5) mg/dL Magnesium 2.4 H (1.6-2.3) mg/dL ALT 61 H (4-49) U/L Total Protein (6.3-8.2) g/dL Ur Specific [place] (1.001-1.035) Urine Protein (Negative) Urine Ketones (Negative) Urine Bilirubin (Negative) Urine Mucus (None) /hpf Rheumatoid Factor (0-15) IU/mL
[2023-04-06] MEDS: MELATONIN 5 MG TABLET PO SCH (20:44)
[2023-04-07] MEDS: ONDANSETRON 4 MG/2 ML VIAL IVP PRN ×4 (02:44→23:50)
[2023-04-07] MEDS: SODIUM CHLORIDE 0.9% 1,000 ML IV SCH ×3 (04:20→19:05)
[2023-04-07 05:25] LABS: T4, Free (Free Thyroxine) 1.18 ng/dL (0.78-2.19)
[2023-04-07 06:32] LABS: HCT 38.8 % (39.0-53.0); HGB 13.8 gm/dL (13.0-17.5); MCH 31.8 pg (25.0-35.0); MCHC 35.6 g/dL (31.0-37.0); MCV 89.1 fL (80.0-100.0); Mean Platelet Volume 7.8; Platelet Count 161 k/uL (150-450); RBC 4.35 m/uL (4.30-5.90); WBC 7.1 k/uL (3.8-10.6)
[2023-04-07 09:08] LABS: ALT 42 U/L (4-49); AST 35 U/L (17-59); African American GFR (CKD) >90 (>60 ml/min/1.73 sqM); Albumin 3.8 g/dL (3.5-5.0); Albumin/Globulin Ratio 1.2; Alkaline Phosphatase 27 U/L (38-126); Anion Gap 11 mmol/L; Blood Urea Nitrogen 17 mg/dL (9-20); Calcium 8.8 mg/dL (8.4-10.2); Carbon Dioxide 21 mmol/L (22-30); Chloride 114 mmol/L (98-107); Globulin 3.1 g/dL; Glucose 98 mg/dL (74-99); Magnesium 2.2 mg/dL (1.6-2.3); Non-African American GFR(CKD) >90 (>60 ml/min/1.73 sqM); Sodium 146 mmol/L (137-145); Total Bilirubin 1.3 mg/dL (0.2-1.3); Total Protein 6.9 g/dL (6.3-8.2)
[2023-04-07 09:15] LABS: Potassium 6.2 mmol/L (3.5-5.1)
[2023-04-07] MEDS: ENOXAPARIN 40 MG/0.4 ML SYRINGE SQ SCH (09:28)
[2023-04-07] MEDS: MULTIVITAMINS, THERA 1 EACH TAB PO SCH (09:28)
[2023-04-07 11:42] LABS: African American GFR (CKD) >90 (>60 ml/min/1.73 sqM); Anion Gap 11 mmol/L; Blood Urea Nitrogen 18 mg/dL (9-20); Calcium 8.8 mg/dL (8.4-10.2); Carbon Dioxide 21 mmol/L (22-30); Chloride 115 mmol/L (98-107); Glucose 118 mg/dL (74-99); Non-African American GFR(CKD) >90 (>60 ml/min/1.73 sqM); Sodium 147 mmol/L (137-145)
[2023-04-07 12:39] LABS: African American GFR (CKD) >90 (>60 ml/min/1.73 sqM); Anion Gap 9 mmol/L; Blood Urea Nitrogen 15 mg/dL (9-20); Calcium 9.1 mg/dL (8.4-10.2); Carbon Dioxide 22 mmol/L (22-30); Chloride 112 mmol/L (98-107); Glucose 100 mg/dL (74-99); Non-African American GFR(CKD) >90 (>60 ml/min/1.73 sqM); Sodium 143 mmol/L (137-145)
--- NOTE | 2023-04-07 12:59 | P.PN ---
Subjective Progress Note Date: 04/07/23 I am seeing the patient for the first time during this hospital visit. Patient states he uses heroin (snores it) and last was 10 days ago, uses oxycodone off street and he says some of medications are laced with fentanyl who has been having worsening generalized weakness for the past one week as well as vomiting. He denies of difficulty swallowing, diplopia, focal weakness, urinary or bowel issues. Denies numbness. It seems he is having weakness for the past one year but worsening in the past one week. Denies significant alcohol use. It seems that the patient has been having generalized weakness worse in the lowers especially right lower per Dr. Sosa over the past 3 days the patient did not notify me this denies again of any numbness or any bowel or urinary issues. Please refer to Dr. Sosa's notes for further details. Objective - Vital Signs Vital signs: Vital Signs Temp 99.9 F H 04/07/23 07:00 Pulse 49 L 04/07/23 07:00 Resp 18 04/07/23 07:00 BP 142/84 04/07/23 07:00 Pulse Ox 99 04/07/23 07:00 FiO2 Intake & Output 04/06/23 04/07/23 04/07/23 18:59 06:59 18:59 Intake Total 0 Output Total 250 300 Balance -250 -300 Intake: Oral 0 Output: Urine 250 300 Other: Voiding Method Urinal Urinal # Voids 3 1 # Bowel Movements 0 - Exam GENERAL: The patient is lying in bed and is not in acute distress. NEUROLOGICAL: Higher mental function: The patient is awake, alert, oriented to self, place and time. Patient is following commands. No aphasia and no neglect. Cranial nerves: The pupils are round, equal and reactive to light and accommodation. Visual jacinto are full to confrontation throughout. Extraocular movement is intact no nystagmus is noted. Facial sensation is normal to touch throughout. The facial strength is normal throughout. Hearing is normal bilaterally to hand rub. Tongue is midline and moved [id number] without any difficulty. No dysarthria is noted. Shoulder shrug is normal bilaterally. Motor: Gait is able to get up on his own and taking small steps and using any assistance. The strength is limited because of his cooperation but lifting all extremities above gravity and no focality. . Normal tone and bulk. Cerebellum: Normal finger to nose bilaterally. Sensation: Sensation is normal to touch throughout. Reflexes (right/left): 2+ throughout. Plantars are mute bilaterally. - Labs CBC & Chem 7: 04/07/23 06:01 04/07/23 10:41 Labs: Abnormal Lab Results - Last 24 Hours (Table) 04/06/23 04/06/23 04/06/23 Range/Units 07:30 11:50 14:27 Hct (39.0-53.0) % Sodium (137-145) mmol/L Potassium (3.5-5.1) mmol/L Chloride (98-107) mmol/L Carbon Dioxide (22-30) mmol/L Creatinine (0.66-1.25) mg/dL Glucose (74-99) mg/dL Alkaline Phosphatase (38-126) U/L Creatine Kinase 26 L (55-170) U/L TSH 0.455 L (0.465-4.680) mIU/L Ur Barbiturates Screen Detected H (NotDetected) U Marijuana (THC) Screen Detected H (NotDetected) 04/07/23 04/07/23 04/07/23 Range/Units 06:01 08:19 10:41 Hct 38.8 L (39.0-53.0) % Sodium 146 H 147 H (137-145) mmol/L Potassium 6.2 H* 7.0 H* (3.5-5.1) mmol/L Chloride 114 H 115 H (98-107) mmol/L Carbon Dioxide 21 L 21 L (22-30) mmol/L Creatinine 0.62 L 0.61 L (0.66-1.25) mg/dL Glucose 118 H (74-99) mg/dL Alkaline Phosphatase 27 L (38-126) U/L Creatine Kinase (55-170) U/L TSH (0.465-4.680) mIU/L Ur Barbiturates Screen (NotDetected) U Marijuana (THC) Screen (NotDetected) Assessment and Plan Assessment: This is a 32-year-old gentleman with history of polysubstance abuse (heroin- snore it, oxycodone, drugs laced with fentanyl) who is seems has been having generalized weakness over the past 1 year but at got worse over the past 1 week. He denies of any numbness, urinary or bowel issues at. Denies of any focal weakness. Denies of any diplopia or difficulty swallowing. Reported generalized weakness over the past 1 year but worse in the past 1 week with vomiting rule out any central cause as a result of his polysubstance abuse contributing to his symptoms was felt by Dr. Sosa the patient had worse in the lower. I agree reflexes were normal and there is no sensory level and on my examination I do not feel any focal deficit but felt was generalized weakness. especially right lower Hyperkalemia slight hemolysis most recent potassium 7.0 History of positive abuse and uses heroin and he snorts it oxycodone and the drugs are laced with sentinel according to patient last heroin use was about 10 days ago History of bipolar History of anxiety Plan: MRI the thoracic and lumbar is ordered in addition I ordered MRI the brain and cervical spine to rule out any central cause Vitamin B12 is 646 Folate is 24.80 TSH is 0.455 the free T4 is 1.18 ESR is 4 CK level is 26 Urine drug screen is positive for barbiturates and marijuana Rheumatoid factors 40 BAYRON, CCP is ordered by the primary team is pending Consider EMG of nerve conduction study of the upper and lower as an outpatient PT and OT is ordered is pending Patient was counseled on cessation of polysubstance use We'll defer the rest of the medical management to the primary team Plan discussed with the patient and the primary team EXTENDED DAY TEACHER Time with Patient: Less than 30
[2023-04-07] MEDS ORDERED: CALCIUM GLUCONATE IN NACL 2 GM in SALINE 1 100ML.BAG IVPB ONE (13:00)
[2023-04-07 13:27] LABS: Potassium 6.5 mmol/L (3.5-5.1)
[2023-04-07] MEDS ORDERED: SODIUM ZIRCONIUM CYCLOSILICATE 10 GM PACKET PO ONE (15:00)
[2023-04-07 16:32] LABS: African American GFR (CKD) >90 (>60 ml/min/1.73 sqM); Anion Gap 10 mmol/L; Blood Urea Nitrogen 13 mg/dL (9-20); Calcium 9.1 mg/dL (8.4-10.2); Carbon Dioxide 24 mmol/L (22-30); Chloride 107 mmol/L (98-107); Glucose 93 mg/dL (74-99); Non-African American GFR(CKD) >90 (>60 ml/min/1.73 sqM); Sodium 141 mmol/L (137-145)
--- NOTE | 2023-04-07 16:37 | P.PN ---
Subjective Progress Note Date: 04/07/23 Hospital Course: Patient is a pleasant 32-year-old male with a past medical history of pneumothorax requiring chest tube placement, anxiety, bipolar, depression, n icotine dependence, opioid and benzodiazepine dependency and abuse with previous IVDA. Patient presented to the emergency department from [facility] secondary to reports of progressively worsening lower extremity weakness. Patient reportedly began walking with a cane to assist with balance just over a year ago and reports symptoms have progressively worsened over the last year and rapidly worsened over the last few days. He denies experiencing any numbness or tingling in his legs. He does report tingling in the tips of his fingers. . Patient underwent evaluation in the emergency department. EKG was completed showing sinus bradycardia at 51 bpm. Chest x-ray completed negative for acute cardiopulmonary process. X-ray bilateral knees was completed and again negative for acute fracture or dislocation. ED provider reported patient was walked in the ER and it was visualized that patient was having difficulties with ambulation was significantly abnormal gait even when using walker. Case was thoroughly discussed with ED physician, patient admitted under our services to observation unit with consult neurology. labs completed and reviewed. CBC unremarkable with the exception of mild leukocytosis with WBC count of 11.6,coagulation profile normal findings, BMP revealing mild hypochloremia with chloride of 97, bicarb 25, and anion gap elevated st 18 and slightly elevated BUN of 21 otherwise normal findings. Blood glucose 105. Lactic acid 1.4. CRP < 0.5. Uric acid slightly elevated at 9.4 and magnesium elevated at 2.4. Liver profile showing slightly elevated ALT of 89 otherwise normal findings. Urinalysis positive for protein, ketones, and bilirubin. Discussed patient his tory, physical exam findings, laboratory results in detail with the ED physician. Patient being admitted under our services. Order placed for his CT lumbar spine and upon follow-up with results showing disc bulge at L4 through S1 contributing to moderate right neural foraminal stenosis with contact of the exiting L5 nerve root, L4 through L5 disc bulge with mild spinal canal and neural foraminal stenosis, and multilevel mild facet arthropathy. Consult placed to orthospine surgery Physical exam: Patient seen and evaluated at bedside this morning. He reports weakness unchanged. Patient is able to ambulate in room with cane. Slow gait. He zara nues to deny having any numbness. Nursing staff reported patient having episodes of urinary incontinence, patient denied at this time. Vital signs reviewed and stable. General: Nontoxic, no distress and appears stated age. Thin emaciated appearance Derm: Skin warm and dry, normal coloration for ethnicity. Head: Atraumatic, normocephalic and symmetric. Eyes: EOMs intact, no lid lag, and anicteric sclera Mouth: no lip lesions, mucus membranes moist Cardiovascular: regular rate and rhythm with normal S1S2, no murmur, positive posterior tibial pulses bilaterally, and cap refill < 2 seconds. Lungs: Respirations even, regular, and unlabored on room air. Lungs CTA bilaterally, no rhonchi, no rales, no wheezing, and no accessory muscle usage. Abdominal: soft, nontender to palpation, no guarding, no appreciable organomegaly Ext: No gross muscle atrophy, no edema, no contractures. Movement and sensation intact.. Neuro: Face symmetrical and CN II-XII grossly intact. Speech stuttering noted, GCS 15. Pt has 3/5 plantar flexion, and 2/5 dorsiflexion but difficult to decipher if participation played a role in these finding. Psych: Alert and oriented to person, place, time, and situation. Appropriate and pleasant affect. Assessment and Plan of Care: Bilateral lower extremity weakness, presently worsening. Bulging of intervertebral disks between L4 and L5 Anxiety and Depression Bipolar Disorder Polysubstance abuse with opioids, benzodiazepines, and previous IVDA Nicotine dependence Patient reports progressively worsening bilateral lower extremity weakness difficulties with gait 1 year rapidly worsening over the past few days. Neurology following and discussed plan of care with Dr. Che and he is recommending an MRI of brain and C-spine. Neuro checks to continue CT lumbar spine disc bulge at L4 through S1 contributing to moderate right neural foraminal stenosis with contact of the exiting L5 nerve root, L4 through L5 disc bulge with mild spinal canal and neural foraminal stenosis, and multilevel mild facet arthropathy. Orthospine surgery following and discussed plan of care with Dr. García whom placed order for MRI thoracic and lumbar spine. Fall precautions to remain in place Symptomatic care and pain management, Toradol 15 mg IVP every 6 hours May be administered as needed for [id number] pain. Patient received IV fluid hydration with 0.9% normal 24 hours and now discontinued. PT/OT evaluated and discussed plan of care. -B12 normal findings at 646, Folate also normal findings at 24.80. Thiamine pending. -Rheumatoid factor elevated at 40. CRP < 0.5 and ESR normal findings at 4. Order placed for BAYRON and CCP IgG Asymptomatic bradycardia -Heart rate runs 40s to 50s, this is patient's baseline and he denies any complaints/symptoms resulting from this bradycardia. -TSH was low at 0.455 however free T4 was normal findings at 1.18. Data review: Vital signs reviewed. Blood pressure 142/84, heart rate 49, respiratory rate 18, temp slightly elevated this morning at 99.9F and SpO2 99% on room air. Morning labs reviewed. CBC unremarkable with WBC count of 7.1, hemoglobin 13.8, and platelet count of 161. BMP initially revealing hyperkalemia secondary to hemolyzed specimen. Repeat labs did reveal an unremarkable BMP with normal potassium levels at 4.9. Imaging review: No new imaging to review this morning. Awaiting completion of MRI head, cervical spine, thoracic spine, and lumbar spine. CODE STATUS: Full Code DVT prophylaxis: Lovenox Discussed with: Pt, orthopedic surgeon, neurologist and RN Anticipated discharge date: clinical course to determine Anticipated discharge place: Home Patient was seen independently by Nurse Practitioner. This document was prepared using [employer] dictation software. Please allow for errors in head of ict while rare they do occur. I reviewed the documentation as provided by the VPIIN above, who is the original author of this note. I agree with the documented assessment and plan, with the following changes: none Objective - Vital Signs Vital signs: Vital Signs Temp 99.9 F H 04/07/23 07:00 Pulse 49 L 04/07/23 07:00 Resp 18 04/07/23 07:00 BP 142/84 04/07/23 07:00 Pulse Ox 99 04/07/23 07:00 FiO2 Intake & Output 04/06/23 04/07/23 04/07/23 18:59 06:59 18:59 Output Total 250 Balance -250 Output: Urine 250 Other: Voiding Method Urinal Urinal # Voids 3 1 # Bowel Movements 0 - Labs CBC & Chem 7: 04/07/23 06:01 04/07/23 15:17 Labs: Abnormal Lab Results - Last 24 Hours (Table) 04/06/23 04/06/23 04/06/23 Range/Units 07:30 09:09 11:50 WBC 10.7 H (3.8-10.6) k/uL Hct (39.0-53.0) % Neutrophils # 9.2 H (1.3-7.7) k/uL Lymphocytes # 0.7 L (1.0-4.8) k/uL Creatine Kinase (55-170) U/L TSH 0.455 L (0.465-4.680) mIU/L Ur Barbiturates Screen Detected H (NotDetected) U Marijuana (THC) Screen Detected H (NotDetected) 04/06/23 04/07/23 Range/Units 14:27 06:01 WBC (3.8-10.6) k/uL Hct 38.8 L (39.0-53.0) % Neutrophils # (1.3-7.7) k/uL Lymphocytes # (1.0-4.8) k/uL Creatine Kinase 26 L (55-170) U/L TSH (0.465-4.680) mIU/L Ur Barbiturates Screen (NotDetected) U Marijuana (THC) Screen (NotDetected)
[2023-04-07 16:40] LABS: Potassium 4.9 mmol/L (3.5-5.1)
[2023-04-07] MEDS: MELATONIN 5 MG TABLET PO SCH (20:10)
[2023-04-08] MEDS: ONDANSETRON 4 MG/2 ML VIAL IVP PRN ×2 (08:37→20:51)
[2023-04-08] MEDS: MULTIVITAMINS, THERA 1 EACH TAB PO SCH (08:38)
[2023-04-08] MEDS ORDERED: NICOTINE GUM (POLACRILEX) 2 MG GUM BUCCAL PRN (10:17)
[2023-04-08 10:35] LABS: African American GFR (CKD) >90 (>60 ml/min/1.73 sqM); Anion Gap 8 mmol/L; Blood Urea Nitrogen 10 mg/dL (9-20); Calcium 8.4 mg/dL (8.4-10.2); Carbon Dioxide 28 mmol/L (22-30); Chloride 105 mmol/L (98-107); Glucose 103 mg/dL (74-99); Non-African American GFR(CKD) >90 (>60 ml/min/1.73 sqM); Sodium 141 mmol/L (137-145)
[2023-04-08 10:36] LABS: Potassium 4.1 mmol/L (3.5-5.1)
--- NOTE | 2023-04-08 12:24 | P.CNOR ---
History of Present Illness - [facility] Consult date: 04/08/23 Requesting physician: Fabian Liz Consult reason: other (gait difficulties, disc bulge L5-S1 c right neural foraminal stenosis) History of present illness: History of Presenting Illness Patient is a pleasant 32-year-old male who presented to the ER due to bilateral lower extremity weakness. Patient reports he has had chronic back pain with rad iculopathy and lower extremity weakness. He states that his symptoms have progressed over the past few weeks, with worsening over the past few days prior to admission. Patient reports he is normally independent. He states occasionally he utilizes a cane for stability. Patient denies any numbness or tingling to bilateral lower extremities. Patient has been at [facility] secondary to opioid and benzodiazepine dependency. Patient does have medical history of a collapsed lung with chest tube placement, patient unable to remember incident. Patient denies any orthopedic history. Patient seen and examined this morning. Patient is resting in bed, on phone with spouse. Patient does report that he feel his symptoms have improved since admission. Patient verbalizes he is ambulatory within room. He continues to deny numbness or tingling to bilateral lower extremities. Informed patient that he is scheduled for MRI of brain, cervical, thoracic, and lumbar spine today at 1515. Patient verbalizes understanding and states he is looking forward to getting some answers. CT of the lumbar spine taken on 04/05/2023 demonstrates a disc bulge at L5-S1 contributing to moderate right neural foraminal stenosis with contact of the exiting L5 nerve root. There is also a L4-L5 disc bulge with mild spinal canal and neural foraminal stenosis. Multilevel mild facet arthropathy. Review of Systems Pertinent positives and negatives as discussed in HPI, a complete review of systems was performed and all other systems are negative. Physical Examination General: The patient is awake and alert, in no acute distress Skin: Skin is warm and dry with no obvious rashes or lesions. Eye: Pupils are equal, round and reactive to light, extra-ocular movements are intact; there is normal conjunctiva bilaterally. Neck: The neck is supple, there is no tenderness and ROM intact. Cardiovascular: There is a regular rate and rhythm. No murmur, rub or gallop is appreciated. Respiratory: Lungs are clear to auscultation, respirations are non-labored, breath sounds are equal. Gastrointestinal: Soft, non-distended, non-tender abdomen. Back: There is no tenderness to palpation in the midline, paralumbar, parathoracic or buttocks region. There is no obvious deformity. Musculoskeletal: ROM and muscle strength limited due to lack of participation. Patient was freely moving upper and lower extremities. Neurological: CN 2-12 intact. There are no obvious motor or sensory deficits. Movement and coordination equal and intact. Sensory exam to light touch intact C5-T1 and intact from L2-S1. Reflexes 2/4 in bilateral upper and lower extremities. Negative Hoffmans, babinski, and clonus signs. Psychiatric: Cooperative, appropriate mood & affect, normal judgment. Assessment and Plan Lumbar spondylosis L4-L5, L5-S1 HNP Multilevel mild facet arthropathy Bilateral lower extremity radiculopathy Bilateral lower extremity weakness Polysubstance abuse 1. Appreciate medical management 2. MRI of Cervical, Thoracic, and Lumbar Spine pending results 3. Pain management - Continue with IV Toradol as needed 4. GI prophylaxis - per medicine 5. DVT prophylaxis - mechanical 6. PT/OT - weightbearing as tolerated with a walker as needed. 7. Appreciate consult I reviewed and discussed this case with my attending Dr. García, whom has reviewed this chart and films and is in agreement with assessment and plan of care as outlined above. I have personally seen and examined the patient, performed the documentation and the assessment and plan as written. Number of minutes spent on the visit: 15m. Past Medical History Additional Past Medical History / Comment(s): collapsed lung had a chest tube once- states he is too young to remember why it happened History of Any Multi-Drug Resistant Organisms: None Reported Past Surgical History: No Surgical Hx Reported Past Psychological History: Anxiety, Bipolar, Depression Smoking Status: Current every day smoker Past Alcohol Use History: Occasional Past Drug Use History: Opiates, Prescription Drug Abuse Medications and Allergies Home Medications Medication Instructions Recorded Confirmed Type Acetaminophen Tab [Tylenol] 650 mg PO Q4H PRN 04/05/23 04/05/23 History Calcium/Magnesium/Zinc/Vitamin D 1 tab PO TID PRN 04/05/23 04/05/23 History Chlorpheniramine Maleate 4 mg PO Q4H PRN 04/05/23 04/05/23 History [Chlor-Trimeton] Ibuprofen [Motrin Ib] 600 mg PO Q6H PRN 04/05/23 04/05/23 History Loperamide HCl [Imodium A-D] 4 mg PO QID PRN 04/05/23 04/05/23 History Melatonin 5 mg PO HS 04/05/23 04/05/23 History Multivitamins, Thera [Multivitamin 1 tab PO DAILY 04/05/23 04/05/23 History (formulary)] Zofran 2ml (4mg) Dilution Injection 2 ml IM Q6H PRN 04/05/23 04/05/23 History cloNIDine HCL [Catapres] 0.1 mg PO Q4H PRN 04/05/23 04/05/23 History ondansetron HCL [Ondansetron HCl] 8 mg PO Q6H PRN 04/05/23 04/05/23 History Allergies Allergy/AdvReac Type Severity Reaction Status Date / Time No Known Allergies Allergy Verified 04/05/23 14:16 Results - Labs Labs: Abnormal Lab Results - Last 24 Hours (Table) 04/07/23 04/07/23 04/07/23 Range/Units 08:19 10:41 11:55 Sodium 146 H 147 H (137-145) mmol/L Potassium 6.2 H* 7.0 H* 6.5 H* (3.5-5.1) mmol/L Chloride 114 H 115 H 112 H (98-107) mmol/L Carbon Dioxide 21 L 21 L (22-30) mmol/L Creatinine 0.62 L 0.61 L 0.55 L (0.66-1.25) mg/dL Glucose 118 H 100 H (74-99) mg/dL Alkaline Phosphatase 27 L (38-126) U/L 04/07/23 Range/Units 15:17 Sodium (137-145) mmol/L Potassium (3.5-5.1) mmol/L Chloride (98-107) mmol/L Carbon Dioxide (22-30) mmol/L Creatinine 0.52 L (0.66-1.25) mg/dL Glucose (74-99) mg/dL Alkaline Phosphatase (38-126) U/L H & H 04/05/23 04/06/23 04/07/23 Range/Units 11:02 09:09 06:01 Hgb 15.6 14.4 13.8 (13.0-17.5) gm/dL Hct 43.5 39.1 38.8 L (39.0-53.0) % Coagulation 04/05/23 Range/Units 11:02 INR 1.1 (<1.2) Result Diagrams: 04/07/23 06:01 04/08/23 09:41
[2023-04-08 14:26] LABS: Cyclic Citrull Pep IgG Unit <1.5 U/mL (<=3.9); Cyclic Citrullinated Pep IgG Negative
[2023-04-08] MEDS ORDERED: LORazepam 2 MG/ML INJ IV STA (14:55)
[2023-04-08] MEDS: NICOTINE 21MG/24HR PATCH TRANSDERM SCH ×2 (15:16→20:52)
--- NOTE | 2023-04-08 17:05 | MR ---
EXAMINATION TYPE: MR tspine/lspine wo con DATE OF EXAM: 04/08/2023 4:24 PM CLINICAL INDICATION:Male, 32 years old with history of Progressive Weakness; Progressive weakness COMPARISON: 04/05/2023 TECHNIQUE: Multi planar, multi sequence imaging was performed utilizing: T1-weighted, T2-weighted, a nd turbo inversion recovery imaging of the thoracic and lumbar spine. IV Contrast: None. FINDINGS: Alignment: The thoracic and lumbar vertebral bodies have preserved heights and alignment. Cord: The conus medullaris and the distal spinal cord appear unremarkable with regards to their signa l intensity and morphology. Bones/Discs: Scattered mild disc space narrowing. No significant osteophyte formation. There is facet joint arthropathy throughout the spine. Bone marrow signal is within normal limits. THORACIC: Central disc protrusion at T3-T4 which impresses upon the anterior spine. No evidence signi ficant spinal canal or neural foraminal stenosis. Spinal cord is within normal limits. LUMBAR: T12-L1: No evidence of significant spinal canal stenosis or neural foraminal stenosis. L1-L2: No evidence of significant spinal canal stenosis or neural foraminal stenosis. L2-L3: No evidence of significant spinal canal stenosis or neural foraminal stenosis. L3-L4: No evidence of significant spinal canal stenosis or neural foraminal stenosis. L4-L5: No evidence of significant spinal canal stenosis or neural foraminal stenosis. L5-S1: The disc is rounded posterior morphology without significant spinal canal stenosis. Facet join t arthropathy with mild neural foraminal stenosis. Other findings: None. IMPRESSION: 1. No definitive evidence for significant spinal canal or neural foraminal stenosis within the thora cic or lumbar spine.. 2. T3-T4 central disc protrusion which impresses upon the anterior spinal cord. Spinal cord signal i s maintained.
--- NOTE | 2023-04-08 17:36 | MR ---
EXAMINATION TYPE: MR brain/cspine wo DATE OF EXAM: 04/08/2023 5:03 PM COMPARISON: None. CLINICAL INDICATION: None, 32 years old with history of vomiting, generalized weakness; PHH, Vomiting , generalized weakness TECHNIQUE: Multi planar, multi sequence imaging was performed through the brain including: T1, T2, Inversion rec overy, Diffusion weighted imaging, and gradient echo imaging. No gadolinium was given. Multi planar, multi sequence imaging was performed utilizing: T1-weighted, T2-weighted, and turbo inv ersion recovery imaging of the cervical spine. IV Contrast: None FINDINGS: The bowen-white junctions, ventricular system, and cisterns appear unremarkable. Patchy areas of high T2 signal intensity are seen within the periventricular white matter. Midline structures show no abn ormality. Diffusion-weighted imaging shows no evidence of restricted diffusion. The susceptibility we ighted images do not reveal any evidence for micro-hemorrhage. The bone marrow signal is within normal limits. Paranasal sinuses and mastoid air cells: No significant paranasal sinus disease. Visualized orbits: Orbital contents are intact. Alignment: The cervical vertebral bodies have preserved heights. Alignment is within normal limits gi jayme patient positioning. Bones: Degeneration changes most pronounced at C5-C6 with Modic endplate changes. There is some inver yulissa recovery edema at this level. Modic endplate changes also at C6-C7. Cord: The spinal cord is unremarkable with regards to their signal intensity and morphology. Discs: Intervertebral disc signal is maintained. C2-C3: No significant disc pathology. The spinal canal is patent. No neural foraminal stenosis. C3-C4: No significant disc pathology. The spinal canal is patent. Bilateral facet and uncovertebral joint arthropathy are present with mild right neural foraminal stenosis. The left neural foramen is p atent. C4-C5: No significant disc pathology. The spinal canal is patent. No neural foraminal stenosis. C5-C6: A disc osteophyte complex is present with mild spinal canal stenosis. Bilateral facet and unc overtebral joint arthropathy are present with mild bilateral neural foraminal stenosis. C6-C7: A disc osteophyte complex is present which minimally narrows the ventral subarachnoid space. No neural foraminal stenosis. C7-T1: No significant disc pathology. The spinal canal is patent. No neural foraminal stenosis. Other: None. IMPRESSION: 1. No evidence for disc herniation or significant spinal canal stenosis. 2. Mild disc degeneration with associated osteoarthritic changes. 3. No evidence of intracranial mass or acute/subacute infarct.
--- NOTE | 2023-04-08 18:40 | P.PN ---
Subjective Progress Note Date: 04/08/23 Hospital Course: Patient is a pleasant 32-year-old male with a past medical history of pneumothorax requiring chest tube placement, anxiety, bipolar, depression, n icotine dependence, opioid and benzodiazepine dependency and abuse with previous IVDA. Patient presented to the emergency department from [place] secondary to reports of progressively worsening lower extremity weakness. Patient reportedly began walking with a cane to assist with balance just over a year ago and reports symptoms have progressively worsened over the last year and rapidly worsened over the last few days. He denies experiencing any numbness or tingling in his legs. He does report tingling in the tips of his fingers. . Patient underwent evaluation in the emergency department. EKG was completed showing sinus bradycardia at 51 bpm. Chest x-ray completed negative for acute cardiopulmonary process. X-ray bilateral knees was completed and again negative for acute fracture or dislocation. ED provider reported patient was walked in the ER and it was visualized that patient was having difficulties with ambulation was significantly abnormal gait even when using walker. Case was thoroughly discussed with ED physician, patient admitted under our services to observation unit with consult neurology. labs completed and reviewed. CBC unremarkable with the exception of mild leukocytosis with WBC count of 11.6,coagulation profile normal findings, BMP revealing mild hypochloremia with chloride of 97, bicarb 25, and anion gap elevated st 18 and slightly elevated BUN of 21 otherwise normal findings. Blood glucose 105. Lactic acid 1.4. CRP < 0.5. Uric acid slightly elevated at 9.4 and magnesium elevated at 2.4. Liver profile showing slightly elevated ALT of 89 otherwise normal findings. Urinalysis positive for protein, ketones, and bilirubin. Discussed patient his tory, physical exam findings, laboratory results in detail with the ED physician. Patient being admitted under our services. Order placed for his CT lumbar spine and upon follow-up with results showing disc bulge at L4 through S1 contributing to moderate right neural foraminal stenosis with contact of the exiting L5 nerve root, L4 through L5 disc bulge with mild spinal canal and neural foraminal stenosis, and multilevel mild facet arthropathy. Consult placed to orthospine surgery Physical exam: Patient seen and evaluated at bedside this morning. He reports weakness unchanged. Patient has been slowly ambulating in room with cane to and from [facility] hroom. Slow gait. He continues to deny having any numbness, it remains unclear and very difficult to decipher if patient is truly having weakness or if participation is playing a role in these findings. Patient scheduled to undergo MRA later this afternoon. Vital signs reviewed and stable. General: Nontoxic, no distress and appears stated age. Thin emaciated appearance Derm: Skin warm and dry, normal coloration for ethnicity. Head: Atraumatic, normocephalic and symmetric. Eyes: EOMs intact, no lid lag, and anicteric sclera Mouth: no lip lesions, mucus membranes moist Cardiovascular: regular rate and rhythm with normal S1S2, no murmur, positive posterior tibial pulses bilaterally, and cap refill < 2 seconds. Lungs: Respirations even, regular, and unlabored on room air. Lungs CTA b ilaterally, no rhonchi, no rales, no wheezing, and no accessory muscle usage. Abdominal: soft, nontender to palpation, no guarding, no appreciable organomegaly Ext: No gross muscle atrophy, no edema, no contractures. Movement and sensation intact.. Neuro: Face symmetrical and CN II-XII grossly intact. Speech stuttering noted, GCS 15. Pt has 3/5 plantar flexion, and 2/5 dorsiflexion. It remains difficult to decipher if participation played a role in these finding. Psych: Alert and oriented to person, place, time, and situation. Appropriate and pleasant affect. Assessment and Plan of Care: Bilateral lower extremity weakness, presently worsening. Bulging of intervertebral disks between L4 and L5 Anxiety and Depression Bipolar Disorder Polysubstance abuse with opioids, benzodiazepines, and previous IVDA Nicotine dependence Patient reports progressively worsening bilateral lower extremity weakness difficulties with gait 1 year rapidly worsening over the past few days. Neurology following and discussed plan of care with Dr. Che and he is recommending an MRI of brain and C-spine. Neuro checks to continue CT lumbar spine disc bulge at L4 through S1 contributing to moderate right neural foraminal stenosis with contact of the exiting L5 nerve root, L4 through L5 disc bulge with mild spinal canal and neural foraminal stenosis, and multilevel mild facet arthropathy. Orthospine surgery following and discussed plan of care with Dr. García whom placed order for MRI thoracic and lumbar spine. Fall precautions to remain in place Symptomatic care and pain management, Toradol 15 mg IVP every 6 hours May be administered as needed for [id number] pain. PT/OT evaluated and discussed plan of care. -B12 normal findings at 646, Folate also normal findings at 24.80. Thiamine also normal at 84. -Rheumatoid factor elevated at 40. CRP < 0.5 and ESR normal findings at 4. BAYRON and CCP IgG were negative. Asymptomatic bradycardia -Heart rate runs 40s to 50s, this is patient's baseline and he denies any complaints/symptoms resulting from this bradycardia. -TSH was low at 0.455 however free T4 was normal findings at 1.18. Patient had recurrent episodes of hyperkalemia secondary to hemolyzed lab draws. Data review: Vital signs reviewed. Blood pressure 145/80, heart rate 44, respiratory rate 16, temp 98.3F, SpO2 of 97% on room air. Morning labs reviewed. BMP showing normal findings with sodium 141, potassium 4.1, and renal function unremarkable with BUN of 10, creatinine 0.59 and GFR greater than 90. Magnesium also normal findings at 2.0. Imaging review: No new imaging to review this morning. Awaiting completion of MRI head, cervical spine, thoracic spine, and lumbar spine. CODE STATUS: Full Code DVT prophylaxis: Lovenox Discussed with: Pt, orthopedic surgeon, neurologist and RN Anticipated discharge date: clinical course to determine Anticipated discharge place: Home Patient was seen independently by Nurse Practitioner. This document was prepared using [employer] dictation software. Please allow for errors in packing room supervisor while rare they do occur. I reviewed the documentation as provided by the VIPIN above, who is the original author of this note. I agree with the documented assessment and plan, with the following changes: none Objective - Vital Signs Vital signs: Vital Signs Temp 98.3 F 04/08/23 07:03 Pulse 44 L 04/08/23 07:03 Resp 16 04/08/23 07:03 BP 145/80 04/08/23 07:03 Pulse Ox 98 04/08/23 08:45 FiO2 Intake & Output 04/07/23 04/08/23 04/08/23 18:59 06:59 18:59 Intake Total 90 Output Total 300 275 Balance -210 -275 Intake: Oral 90 Output: Urine 300 275 Other: Voiding Method Urinal # Voids 400 1 # Bowel Movements 0 - Labs CBC & Chem 7: 04/07/23 06:01 04/08/23 09:41 Labs: Abnormal Lab Results - Last 24 Hours (Table) 04/07/23 04/07/2323 Range/Units 08:19 10:41 11:55 Sodium 146 H 147 H (137-145) mmol/L Potassium 6.2 H* 7.0 H* 6.5 H* (3.5-5.1) mmol/L Chloride 114 H 115 H 112 H (98-107) mmol/L Carbon Dioxide 21 L 21 L (22-30) mmol/L Creatinine 0.62 L 0.61 L 0.55 L (0.66-1.25) mg/dL Glucose 118 H 100 H (74-99) mg/dL Alkaline Phosphatase 27 L (38-126) U/L 04/07/23 Range/Units 15:17 Sodium (137-145) mmol/L Potassium (3.5-5.1) mmol/L Chloride (98-107) mmol/L Carbon Dioxide (22-30) mmol/L Creatinine 0.52 L (0.66-1.25) mg/dL Glucose (74-99) mg/dL Alkaline Phosphatase (38-126) U/L
[2023-04-08] MEDS: MELATONIN 5 MG TABLET PO SCH (20:51)
[2023-04-08 21:41] VITALS: RESP 16
[2023-04-09] MEDS: ONDANSETRON 4 MG/2 ML VIAL IVP PRN ×2 (03:42→09:41)
[2023-04-09 07:55] VITALS: BP 112/72; PULSE 105; TEMP 98
--- NOTE | 2023-04-09 08:18 | P.PN ---
Subjective Progress Note Date: 04/09/23 Principal diagnosis: gait difficulties disc bulge L5-S1 c right neural foraminal stenosis Patient is in shower this morning. Patient is up and about independent. RN states no acute events over night. Continue to encourage patient to work with PT/OT. Patient to follow up as outpatient. Objective - Vital Signs Vital signs: Vital Signs Temp 98 F 04/09/23 07:00 Pulse 105 H 04/09/23 07:00 Resp 16 04/09/23 07:00 BP 112/72 04/09/23 07:00 Pulse Ox 99 04/09/23 07:00 FiO2 Intake & Output 04/08/23 04/09/23 04/09/23 18:59 06:59 18:59 Output Total 200 Balance -200 Output: Urine 200 Other: # Voids 1 # Bowel Movements 1 - Exam General: The patient is awake and alert, in no acute distress Skin: Skin is warm and dry with no obvious rashes or lesions. Eye: Pupils are equal, round and reactive to light, extra-ocular movements are intact; there is normal conjunctiva bilaterally. Neck: The neck is supple, there is no tenderness and ROM intact. Cardiovascular: There is a regular rate and rhythm. No murmur, rub or gallop is appreciated. Respiratory: Lungs are clear to auscultation, respirations are non-labored, breath sounds are equal. Gastrointestinal: Soft, non-distended, non-tender abdomen. Back: There is no tenderness to palpation in the midline, paralumbar, parathor acic or buttocks region. There is no obvious deformity. Musculoskeletal: ROM and muscle strength limited due to lack of participation. Patient is freely moving upper and lower extremities. Neurological: CN 2-12 intact. There are no obvious motor or sensory deficits. Movement and coordination equal and intact. Sensory exam to light touch intact C5-T1 and intact from L2-S1. Reflexes 2/4 in bilateral upper and lower extremities. Negative Hoffmans, babinski, and clonus signs. Psychiatric: Cooperative, appropriate mood & affect, normal judgment. - Labs CBC & Chem 7: 04/07/23 06:01 04/08/23 09:41 Labs: Abnormal Lab Results - Last 24 Hours (Table) 04/08/23 Range/Units 09:41 Creatinine 0.59 L (0.66-1.25) mg/dL Glucose 103 H (74-99) mg/dL Assessment and Plan Assessment: MRI of the Cervical spine demonstrates degeneration changes most pronounced at C5-C6 with Modic endplate changes. There is some inversion recovery edema at t his level. Modic endplate changes also at C6-C7. MRI of the Thoracic and Lumbar spine demonstrates that there is no definitive evidence for significant spinal canal or neural foraminal stenosis within the thoracic or lumbar spine. T3-T4 central disc protrusion which impresses upon the anterior spinal cord. Spinal cord signal is maintained. Cervical Spondylosis C5-C6 disc osteophyte complex T3-T4 central HNP Lumbar spondylosis Multilevel mild facet arthropathy Bilateral lower extremity radiculopathy Bilateral lower extremity weakness Polysubstance abuse Plan: At this time we do not recommend any emergent/urgent orthopedic surgical intervention. Patient may follow-up with Dr. García office for further evaluation as needed. Orthopedics is signing off at this time. Please do not hesitate to contact us for any further questions. 1. Appreciate medical management 3. Pain management - Continue with anti-inflammatories 4. GI prophylaxis - per medicine 5. DVT prophylaxis - mechanical 6. PT/OT - weightbearing as tolerated with a walker as needed. 7. Appreciate consult
[2023-04-09] MEDS: NICOTINE 21MG/24HR PATCH TRANSDERM SCH (08:32)
[2023-04-09] MEDS: MULTIVITAMINS, THERA 1 EACH TAB PO SCH (08:33)
--- NOTE | 2023-04-09 11:14 | P.DS ---
Providers Date of admission: 04/07/23 17:44 Expected date of discharge: 04/09/23 Attending physician: Chacho Brady MD Consults: 04/05/23 14:11 Consult Physician Routine Consulting Provider: Marie Crane Consult Reason/Comments: Progressively worsening bilateral lower extremity weakness Do you want consulting provider notified?: Yes 04/05/23 18:50 Consult Physician Routine Consulting Provider: Ab García Consult Reason/Comments: gait difficulties, disc bulge L5-S1 c right neural foraminal stenosis Do you want consulting provider notified?: Yes Primary care physician: Stated None Hospital Course: Discharge Diagnosis: Intractable back pain secondary to T3/4 central herniated nucleus pulposus, cervical spondylolysis with C5 6 disc osteophyte complex, lumbar spondylolysis Bilateral extremity radiculopathy and weakness History of IVDA currently in recovery Anxiety and depression Nicotine dependency Asymptomatic bradycardia Hyperkalemia, laboratory abnormality Elevated rheumatoid factor Hospital Course: Patient is a 32-year-old male with anxiety, bipolar disorder, prior IVDA currently at [facility] and in remission who presented with worsening lower extremity weakness, numbness and tingling, and back pain. In the ER he underwent an extensive evaluation. On arrival laboratory analysis was remarkable for white blood cell count of 11.6, ALT 89, magnesium 2.4, uric acid 9.4, glucose 105, BUN 21, chloride of 97. Urine drug screen was positive for barbiturates and marijuana. He is admitted for lower extremity pain and weakness. He underwent a CT lumbar spine which demonstrated disc bulge at L5-S1 with moderate neural foraminal stenosis, L4/5 disc bulge with mild spinal canal stenosis, and multiple mild facet arthropathy. Neurology was consulted and recommended MRI of the thoracic and lumbar spine as well as brain and cervical spine to rule out any interstitial causes. Vitamin B-12, folate, and TSH came back within normal limits. Rheumatoid factor mildly elevated at 40, CCP negative, BAYRON negative, Lyme's screen negative. CT brain and cervical spine showed no evidence of disc herniation or significant spinal canal stenosis with mild degenerative changes. MRI thoracic and lumbar spine showed T3/4 central disc protrusion which impresses on the anterior spinal cord with signal that is maintained. He was seen by orthopedic spine surgery who recommended conservative management and outpatient follow-up. He had been maintained on NSAID therapy. He was determined stable for discharge as he was up and ambulating. He will return to [facility]. Follow-up: Dr. García on 04/24/23 at 9 AM -Motrin 600 mg every 8 hours as needed for pain, Medrol Dosepak, Flexeril 5 mg 3 times daily as needed for muscle spasms. Dr. Contreras on discharge from [facility] to establish as PCP He will require a cane for gait instability Patient seen and examined at bedside. He needs to have some pain and weakness that is better than on presentation. We went through the results of his MRI. All questions were answered. Vital signs reviewed and stable. General: nontoxic, no distress, appears at stated age Cardiovascular: S1S2 reg, no murmur, positive posterior tibial pulse bilateral, Lungs: CTA bilateral, no rhonchi, no rales , no accessory muscle use Abdominal: soft, nontender to palpation, no guarding, no appreciable organomegaly Ext: no gross muscle atrophy, no edema b/l lower extremities, no contractures Neuro: CN II-XI grossly intact, no focal neuro deficits Psych: Alert, oriented, appropriate affect A total of 35 minutes of time were spent preparing this complex discharge summary. Patient was discharged on 04/09/23. This dictation was prepared using [employer] voice recognition software. Though every attempt is made to correct errors during dictation some may still exist. Plan - Discharge Summary New Discharge Prescriptions: New Cyclobenzaprine [Flexeril] 5 mg PO TID PRN #90 tablet PRN Reason: Muscle Spasm Nicotine 21Mg/24Hr Patch [Habitrol] 1 patch TRANSDERM DAILY patch methylPREDNISolone [Medrol Dose Pack] 0 mg PO DIRECTED #1 packet Continue Calcium/Magnesium/Zinc/Vitamin D 1 tab PO TID PRN PRN Reason: CRAMPING Acetaminophen Tab [Tylenol] 650 mg PO Q4H PRN PRN Reason: Fever And/ Or Pain Multivitamins, Thera [Multivitamin (formulary)] 1 tab PO DAILY Melatonin 5 mg PO HS cloNIDine HCL [Catapres] 0.1 mg PO Q4H PRN PRN Reason: Anxiety Loperamide HCl [Imodium A-D] 4 mg PO QID PRN PRN Reason: Diarrhea Zofran 2ml (4mg) Dilution Injection 2 ml IM Q6H PRN PRN Reason: Nausea And Vomiting ondansetron HCL [Zofran] 8 mg PO Q6H PRN PRN Reason: Nausea And Vomiting Chlorpheniramine Maleate [Chlor-Trimeton] 4 mg PO Q4H PRN PRN Reason: Allergy Symptoms Changed Ibuprofen [Motrin Ib] 600 mg PO Q8HR PRN #30 tab PRN Reason: Fever And/ Or Pain Discharge Medication List Acetaminophen Tab [Tylenol] 650 mg PO Q4H PRN 04/05/23 [History] Calcium/Magnesium/Zinc/Vitamin D 1 tab PO TID PRN 04/05/23 [History] Chlorpheniramine Maleate [Chlor-Trimeton] 4 mg PO Q4H PRN 04/05/23 [History] Loperamide HCl [Imodium A-D] 4 mg PO QID PRN 04/05/23 [History] Melatonin 5 mg PO HS 04/05/23 [History] Multivitamins, Thera [Multivitamin (formulary)] 1 tab PO DAILY 04/05/23 [History] Zofran 2ml (4mg) Dilution Injection 2 ml IM Q6H PRN 04/05/23 [History] cloNIDine HCL [Catapres] 0.1 mg PO Q4H PRN 04/05/23 [History] ondansetron HCL [Zofran] 8 mg PO Q6H PRN 04/05/23 [History] Cyclobenzaprine [Flexeril] 5 mg PO TID PRN #90 tablet 04/09/23 [Rx] Ibuprofen [Motrin Ib] 600 mg PO Q8HR PRN #30 tab 04/09/23 [Rx] Nicotine 21Mg/24Hr Patch [Habitrol] 1 patch TRANSDERM DAILY patch 04/09/23 [Rx] methylPREDNISolone [Medrol Dose Pack] 0 mg PO DIRECTED #1 packet 04/09/23 [Rx] Follow up Appointment(s)/Referral(s): Cullen Contreras MD [REFERRING] - 1 Week None,Stated [Primary Care Provider] - 1-2 days Ab García DO [Doctor of Osteopathic Medicine] - 04/24/23 9:00 am (Please arrive at 8:45am to fill out paper work.) Activity/Diet/Wound Care/Special Instructions: Activity: as tolerated Diet: Regular Special Instructions: Please ensure follow-up with Dr. Goodmanson Needs a cane for gait instability from disc buldge AT3/4 Discharge Disposition: HOME SELF-CARE
== END 2023-04-09 14:30 | disposition other institution (70) | DRG 347 ==
LOC: EC 10:16 → 6NMEDSUR 14:00 → OBSVTOIN 04-07 17:44
PROVIDERS: ADMIT Student in an Organized Health Care Education/Training Program; ATTEND Student in an Organized Health Care Education/Training Program
DX: M47.26 Other spondylosis with radiculopathy, lumbar region (principal); M48.061 Spinal stenosis, lumbar region without neurogenic claudication; M51.27 Other intervertebral disc displacement, lumbosacral region; M51.24 Other intervertebral disc displacement, thoracic region; M47.812 Spondylosis without myelopathy or radiculopathy, cervical region; M51.16 Intervertebral disc disorders with radiculopathy, lumbar region; M50.222 Other cervical disc displacement at C5-C6 level; M25.78 Osteophyte, vertebrae; F41.9 Anxiety disorder, unspecified; F13.20 Sedative, hypnotic or anxiolytic dependence, uncomplicated; F11.20 Opioid dependence, uncomplicated; F31.9 Bipolar disorder, unspecified; F14.10 Cocaine abuse, uncomplicated; R00.1 Bradycardia, unspecified; E87.5 Hyperkalemia; R76.0 Raised antibody titer; F17.200 Nicotine dependence, unspecified, uncomplicated; E87.8 Other disorders of electrolyte and fluid balance, not elsewhere classified; Z71.51 Drug abuse counseling and surveillance of drug abuser
CPT/HCPCS: 36415; 70551; 71046; 72131; 72141; 72146; 72148; 80048; 80053; 80306; 81001; 82310; 82550; 82607; 82746; 83605; 83735; 83874; 84425; 84439; 84443; 84550; 85025; 85027; 85610; 85652; 85730; 86038; 86140; 86200; 86431; 86618; 93005; 94760; 96374; 96376; 99285

== ENCOUNTER 2023-07-21 16:16 | Emergency (ER) | payer OTHER ==
--- NOTE | 2023-07-21 16:24 | ED ---
General Adult HPI - General Stated complaint: RIGHT THUMB INJURY Time Seen by Provider: 07/21/23 16:24 Source: patient, RN notes reviewed - History of Present Illness Initial comments: 32 year old male presents to the emergency department for chief complaint of right thumb injury. This occurred at work today. He states that he crushed his finger between parts. He states that he put his finger in an splint after it happened and has not tried to move it much. He denies numbness, tingling. - Related Data Home Medications Medication Instructions Recorded Confirmed Acetaminophen Tab [Tylenol] 650 mg PO Q4H PRN 04/05/23 04/05/23 Calcium/Magnesium/Zinc/Vitamin D 1 tab PO TID PRN 04/05/23 04/05/23 Chlorpheniramine Maleate 4 mg PO Q4H PRN 04/05/23 04/05/23 [Chlor-Trimeton] Loperamide HCl [Imodium A-D] 4 mg PO QID PRN 04/05/23 04/05/23 Melatonin 5 mg PO HS 04/05/23 04/05/23 Multivitamins, Thera [Multivitamin 1 tab PO DAILY 04/05/23 04/05/23 (formulary)] Zofran 2ml (4mg) Dilution Injection 2 ml IM Q6H PRN 04/05/23 04/05/23 cloNIDine HCL [Catapres] 0.1 mg PO Q4H PRN 04/05/23 04/05/23 ondansetron HCL [Zofran] 8 mg PO Q6H PRN 04/05/23 04/05/23 Previous Rx's Medication Instructions Recorded Cyclobenzaprine [Flexeril] 5 mg PO TID PRN #90 tablet 04/09/23 Ibuprofen [Motrin Ib] 600 mg PO Q8HR PRN #30 tab 04/09/23 Nicotine 21Mg/24Hr Patch [Habitrol] 1 patch TRANSDERM DAILY patch 04/09/23 methylPREDNISolone [Medrol Dose 0 mg PO DIRECTED #1 packet 04/09/23 Pack] Allergies Allergy/AdvReac Type Severity Reaction Status Date / Time No Known Allergies Allergy Verified 04/05/23 14:16 Review of Systems ROS Statement: Those systems with pertinent positive or pertinent negative responses have been documented in the HPI. ROS Other: All systems not noted in ROS Statement are negative. Past Medical History Additional Past Medical History / Comment(s): collapsed lung had a chest tube once- states he is too young to remember why it happened History of Any Multi-Drug Resistant Organisms: None Reported Past Surgical History: No Surgical Hx Reported Past Psychological History: Anxiety, Bipolar, Depression Smoking Status: Current every day smoker Past Alcohol Use History: Occasional Past Drug Use History: Opiates, Prescription Drug Abuse General Exam - General Exam Comments Initial Comments: Visual Physical Exam Vital signs reviewed General: Well-appearing, nontoxic, no acute distress. Head: Normocephalic, atraumatic Eyes: PERRLA, EOMI ENT: Airway patent Chest: Nonlabored breathing Skin: No visual rash, normal skin tone Neuro: Alert and oriented 3 Musculoskeletal: No gross abnormalities Limitations: no limitations General appearance: alert, in no apparent distress Head exam: Present: atraumatic, normocephalic, normal inspection Eye exam: Present: normal appearance, PERRL, EOMI. Absent: scleral icterus, conjunctival injection, periorbital swelling ENT exam: Present: normal exam, mucous membranes moist Neck exam: Present: normal inspection. Absent: tenderness, meningismus, lymphadenopathy Respiratory exam: Present: normal lung sounds bilaterally. Absent: respiratory distress, wheezes, rales, rhonchi, stridor Cardiovascular Exam: Present: regular rate, normal rhythm, normal heart sounds. Absent: systolic murmur, diastolic murmur, rubs, gallop, clicks Extremities exam: Present: normal inspection, tenderness (distal right 1st digit), normal capillary refill, other (no anatomical snuffbox tenderness.). Absent: full ROM (decreased due to pain), pedal edema, joint swelling, calf tenderness Neurological exam: Present: alert, oriented X3 Psychiatric exam: Present: normal affect, normal mood Skin exam: Present: warm, dry, intact, other (Ecchymosis to right first digit distally). Absent: rash Course Vital Signs 07/21/23 07/21/23 16:22 19:13 Temperature 97.8 F 97.9 F Pulse Rate 60 62 Respiratory 16 16 Rate Blood Pressure 110/74 112/74 O2 Sat by Pulse 97 99 Oximetry Medical Decision Making - Medical Decision Making I preformed the quick note portion of this chart. Electronically signed by Jacy Reyes PA-C Was pt. sent in by a medical professional or institution (KAREN Macedo, STAGE PRODUCER, urgent care, hospital, or retirement...) When possible be specific @ -No Did you speak to anyone other than the patient for history (EMS, parent, family, police, friend...)? What history was obtained from this source @ -No Did you review nursing and triage notes (agree or disagree)? Why? @ -I reviewed and agree with nursing and triage notes Were old charts reviewed (outside hosp., previous admission, EMS record, old EKG, old radiological studies, urgent care reports/EKG's, retirement records)? Report findings @ -No old charts were reviewed Differential Diagnosis (chest pain, altered mental status, abdominal pain women, abdominal pain men, vaginal bleeding, weakness, fever, dyspnea, syncope, headache, dizziness, GI bleed, back pain, seizure, CVA, palpatations, mental health, musculoskeletal)? @ -Differential Musculoskeletal Muscular strain, contusion, ligament sprain, fracture, arthritis, septic arthritis, bursitis, cellulitis, muscle spasm, nerve compression, DVT, arterial occlusion, herpes zoster, electrolyte abnormality, tumor.... This is not meant to be in all inclusive list EKG interpreted by me (3pts min.). @ -None X-rays interpreted by me (1pt min.). @ -X-ray right first digit shows no evidence of acute fracture CT interpreted by me (1pt min.). @ -None done U/S interpreted by me (1pt. min.). @ -None done What testing was considered but not performed or refused? (CT, X-rays, U/S, labs)? Why? @ -None What meds were considered but not given or refused? Why? @ -None Did you discuss the management of the patient with other professionals (professionals i.e. KAREN Macedo, STAGE PRODUCER, lab, RT, psych nurse, social work coordinator, rental car deliverer, teacher, strike operations officer, lead case manager)? Give summary @ -No Was smoking cessation discussed for >3mins.? @ -No Was critical care preformed (if so, how long)? @ -No Were there social determinants of health that impacted care today? How? (Homelessness, low income, unemployed, alcoholism, drug addiction, transportation, low edu. Level, literacy, decrease access to med. care, fci, rehab)? @ -No Was there de-escalation of care discussed even if they declined (Discuss DNR or withdrawal of care, Hospice)? DNR status @ -No What co-morbidities impacted this encounter? (DM, HTN, Smoking, COPD, CAD, Cancer, CVA, ARF, Chemo, Hep., AIDS, mental health diagnosis, sleep apnea, morbid obesity)? @ -None Was patient admitted / discharged? Hospital course, mention meds given and route, prescriptions, significant lab abnormalities, going to OR and other pertinent info. @ -Discharged. Patient presented to the emergency department for chief complaint of right thumb injury. X-ray shows no evidence acute fracture. Patient to rest, ice. Patient standing agreeable plan. Patient will be discharged home. Patient stable at time of discharge. Case discussed with Dr. Castillo Undiagnosed new problem with uncertain prognosis? @ -No Drug Therapy requiring intensive monitoring for toxicity (Heparin, Nitro, Insulin, Cardizem)? @ -No Were any procedures done? @ -No Diagnosis/symptom? @ -Right first digit contusion Acute, or Chronic, or Acute on Chronic? @ -Acute Uncomplicated (without systemic symptoms) or Complicated (systemic symptoms)? @ -uncomplicated Side effects of treatment? @ -No Exacerbation, Progression, or Severe Exacerbation? @ -No Poses a threat to life or bodily function? How? (Chest pain, [place], [place], pneumonia, PE, COPD, DKA, ARF, appy, cholecystitis, CVA, Diverticulitis, Homicidal, Suicidal, threat to staff... and all critical care pts) @ -No Disposition Clinical Impression: Contusion of right thumb Disposition: HOME SELF-CARE Condition: Stable Instructions (If sedation given, give patient instructions): Finger Sprain (ED) Additional Instructions: please follow up with your primary care provider. Return to the emergency department for new or worsening symptoms. Is patient prescribed a controlled substance at d/c from ED?: No Referrals: None,Stated [Primary Care Provider] - 1-2 days
[2023-07-21 16:30] VITALS: RESP 16
--- NOTE | 2023-07-21 18:16 | XR ---
EXAMINATION TYPE: XR finger RT DATE OF EXAM: 07/21/2023 5:46 PM CLINICAL INDICATION:Male, 32 years old with history of thumb, crush; COMPARISON: None TECHNIQUE: XR finger RT Frontal, lateral and oblique views were obtained. FINDINGS: Normal alignment of the visualized joints. No acute osseous pathology is identified. No e vidence of soft tissue swelling. IMPRESSION: No acute osseous pathology.
[2023-07-21 19:42] VITALS: BP 112/74; PULSE 62; TEMP 97.9
== END 2023-07-21 19:18 | disposition home or self-care (01) ==
LOC: EC 16:16
DX: S60.011A Contusion of right thumb without damage to nail, initial encounter (principal); F17.200 Nicotine dependence, unspecified, uncomplicated; F11.90 Opioid use, unspecified, uncomplicated; Z86.59 Personal history of other mental and behavioral disorders; W23.0XXA Caught, crushed, jammed, or pinched between moving objects, initial encounter
CPT/HCPCS: 99283

== ENCOUNTER → 2023-11-25 | Outpatient (CLI) | payer OTHER ==
[2023-11-25 15:51] LABS: Partial Thromboplastin Time 25.6 sec (22.0-30.0); Prothrombin Time 10.6 sec (10.0-12.5)
[2023-11-25 20:30] LABS: Basophils # (A) 0.04 X 10*3/uL (0.00-0.10); Basophils % (A) 0.7 %; Eosinophils # (A) 0.13 X 10*3/uL (0.04-0.35); Eosinophils % (A) 2.3 %; HCT 42.6 % (39.6-50.0); HGB 14.8 g/dL (13.0-17.0); Lymphocytes # (A) 1.52 X 10*3/uL (0.90-5.00); Lymphocytes % (A) 26.4 %; MCHC 34.7 g/dL (32.0-37.0); Mean Platelet Volume 9.3 FL (9.5-12.2); Monocytes # (A) 0.41 X 10*3/uL (0.20-1.00); Monocytes % (A) 7.1 %; NRBC Per 100 WBC 0 X 10*3/uL (0.00-0.01); Neutrophils # (A) 3.63 X 10*3/uL (1.80-7.70); Platelet Count 246 X 10*3/uL (140-440); RBC 4.63 X 10*6/uL (4.40-5.60); RDW 12.9 % (11.5-14.5); WBC 5.76 X 10*3/uL (4.50-10.00)
[2023-11-25 23:45] LABS: ALT 114 U/L (10-49); AST 49 U/L (14-35); Albumin 4.7 g/dL (3.8-4.9); Albumin/Globulin Ratio 1.47 Ratio (1.60-3.17); Alkaline Phosphatase 56 U/L (41-126); Blood Urea Nitrogen 12.4 mg/dL (9.0-27.0); Calcium 9.3 mg/dL (8.7-10.3); Carbon Dioxide 28.8 mmol/L (21.6-31.8); Chloride 104 mmol/L (96-109); Globulin 3.2 g/dL (1.6-3.3); Glucose 78 mg/dL (70-110); Potassium 4.1 mmol/L (3.5-5.5); Sodium 142 mmol/L (135-145); Total Bilirubin 0.7 mg/dL (0.3-1.2); Total Protein 7.9 g/dL (6.2-8.2)
[2023-11-26 00:56] LABS: HIV 2 AB Non-Reactive (Non-Reactive); HIV AB P24 Non-Reactive (Non-Reactive); HIV P24 AG Non-Reactive (Non-Reactive)
[2023-11-27 11:46] LABS: HCV Qualitative Result DETECTED (Not detected); HCV Quant Log 6.72 (<1.08)
== END | disposition home or self-care (01) ==
LOC: LABWHC1 14:22
PROVIDERS: ATTEND Internal Medicine Infectious Disease
DX: B18.2 Chronic viral hepatitis C (principal)
CPT/HCPCS: 36415; 80053; 85025; 85610; 85730; 87390; 87522

== ENCOUNTER 2023-12-21 16:41 | Emergency (ER) | payer OTHER ==
[2023-12-21 17:20] VITALS: TEMP 98.1
[2023-12-21] MEDS: SODIUM CHLORIDE 0.9% 1,000 ML IV STA (17:27)
[2023-12-21] MEDS: ONDANSETRON 4 MG/2 ML VIAL IVP STA (17:28)
[2023-12-21] MEDS: PANTOPRAZOLE 40 MG/10 ML VIAL IVP STA (17:28)
--- NOTE | 2023-12-21 17:29 | ED ---
General Adult HPI - General Chief complaint: Abdominal Pain Stated complaint: abd pain Time Seen by Provider: 12/21/23 17:01 Source: patient, RN notes reviewed, old records reviewed Mode of arrival: ambulatory Limitations: no limitations - History of Present Illness Initial comments: Is a 33-year-old male with past medical history remarkable for hepatitis C who presents emergency department complaining of nausea, vomiting, diarrhea and abdominal pain since . No blood in his stool or in his emesis. Originally presented to urgent care but due to his history of hepatitis C recommended he come to the ER for further evaluation. Denies any chest pain. Denies any fevers, chills, cough. Denies any urinary complaints. Presents for further evaluation. No history of abdominal surgeries in the past. - Related Data Home Medications Medication Instructions Recorded Confirmed Acetaminophen Tab [Tylenol] 650 mg PO Q4H PRN 04/05/23 04/05/23 Calcium/Magnesium/Zinc/Vitamin D 1 tab PO TID PRN 04/05/23 04/05/23 Chlorpheniramine Maleate 4 mg PO Q4H PRN 04/05/23 04/05/23 [Chlor-Trimeton] Loperamide HCl [Imodium A-D] 4 mg PO QID PRN 04/05/23 04/05/23 Melatonin 5 mg PO HS 04/05/23 04/05/23 Multivitamins, Thera [Multivitamin 1 tab PO DAILY 04/05/23 04/05/23 (formulary)] Zofran 2ml (4mg) Dilution Injection 2 ml IM Q6H PRN 04/05/23 04/05/23 cloNIDine HCL [Catapres] 0.1 mg PO Q4H PRN 04/05/23 04/05/23 ondansetron HCL [Zofran] 8 mg PO Q6H PRN 04/05/23 04/05/23 Previous Rx's Medication Instructions Recorded Cyclobenzaprine [Flexeril] 5 mg PO TID PRN #90 tablet 04/09/23 Ibuprofen [Motrin Ib] 600 mg PO Q8HR PRN #30 tab 04/09/23 Nicotine 21Mg/24Hr Patch [Habitrol] 1 patch TRANSDERM DAILY patch 04/09/23 methylPREDNISolone [Medrol Dose 0 mg PO DIRECTED #1 packet 04/09/23 Pack] Allergies Allergy/AdvReac Type Severity Reaction Status Date / Time methylprednisolone AdvReac Hallucinati Verified 12/21/23 16:48 ons Review of Systems ROS Statement: Those systems with pertinent positive or pertinent negative responses have been documented in the HPI. Review of Systems: CONST: Denies fever EYES: Denies blurry vision ENT: Denies nasal congestion C/V: Denies Chest pain RESP: Denies shortness of breath GI: Endorses nausea, vomiting, diarrhea : Denies dysuria SKIN: Denies rash. MSK: Denies joint pain. NEURO: Denies headache ROS Other: All systems not noted in ROS Statement are negative. Past Medical History Additional Past Medical History / Comment(s): collapsed lung had a chest tube once- states he is too young to remember why it happened History of Any Multi-Drug Resistant Organisms: None Reported Past Surgical History: No Surgical Hx Reported Past Psychological History: Anxiety, Bipolar, Depression Smoking Status: Current every day smoker Past Alcohol Use History: Occasional Past Drug Use History: Opiates, Prescription Drug Abuse General Exam - General Exam Comments Initial Comments: General: Appears in no acute distress. HEAD: Normal with no signs of head trauma. EYES: PERRLA, EOMI, conjunctiva normal, no discharge. ENT: Hearing grossly intact, normal oropharynx. Moist mucous membranes. RESPIRATORY: Clear breath sounds bilaterally. No wheezes, rales, or rhonchi. C/V: Regular rate and rhythm. S1 and S2 auscultated, no edema, peripheral pulses 2+ and intact throughout ABD: Abd is soft, nontender, nondistended EXT: Normal range of motion, no obvious deformity SKIN: No rashes or lesions observed on exposed skin. NEURO: Alert and oriented x 4. Limitations: no limitations Course Vital Signs 12/21/23 12/21/23 16:45 18:42 Temperature 98.1 F Pulse Rate 57 L 59 L Respiratory 18 16 Rate Blood Pressure 111/75 102/69 O2 Sat by Pulse 97 99 Oximetry Medical Decision Making - Medical Decision Making Was pt. sent in by a medical professional or institution (, PA, EDITOR NEWSPAPER, urgent care, hospital, or group home...) When possible be specific @ -Sent from urgent care for evaluation for nausea and vomiting and diarrhea. Did you speak to anyone other than the patient for history (EMS, parent, family, police, friend...)? What history was obtained from this source @ -No Did you review nursing and triage notes (agree or disagree)? Why? @ -I reviewed and agree with nursing and triage notes Were old charts reviewed (outside hosp., previous admission, EMS record, old EKG, old radiological studies, urgent care reports/EKG's, group home records)? Report findings @ -Old charts reviewed Differential Diagnosis (chest pain, altered mental status, abdominal pain women, abdominal pain men, vaginal bleeding, weakness, fever, dyspnea, syncope, headache, dizziness, GI bleed, back pain, seizure, CVA, palpatations, mental health, musculoskeletal)? @ -Viral syndrome, electrolyte abnormality, hepatitis, gastritis, this list is not all inclusive. EKG interpreted by me (3pts min.). @ -None done X-rays interpreted by me (1pt min.). @ -None done CT interpreted by me (1pt min.). @ -None done U/S interpreted by me (1pt. min.). @ -None done What testing was considered but not performed or refused? (CT, X-rays, U/S, l abs)? Why? @ -Considered imaging however patient agreed to defer at this time as he ultimately presented to urgent care for a work note. He is feeling improved. However we will obtain basic labs. Imaging be obtained if warranted. He was in agreement this plan. What meds were considered but not given or refused? Why? @ -None Did you discuss the management of the patient with other professionals (professionals i.e. , PA, EDITOR NEWSPAPER, lab, RT, psych nurse, social media campaign manager, fitter/welder, teacher, chief creative officer, catalytic case operator)? Give summary @ -No Was smoking cessation discussed for >3mins.? @ -No Was critical care preformed (if so, how long)? @ -No Were there social determinants of health that impacted care today? How? (Homelessness, low income, unemployed, alcoholism, drug addiction, transportation, low edu. Level, literacy, decrease access to med. care, fci, rehab)? @ -No Was there de-escalation of care discussed even if they declined (Discuss DNR or withdrawal of care, Hospice)? DNR status @ -No What co-morbidities impacted this encounter? (DM, HTN, Smoking, COPD, CAD, Cancer, CVA, ARF, Chemo, Hep., AIDS, mental health diagnosis, sleep apnea, morbid obesity)? @ -Hepatitis C Was patient admitted / discharged? Hospital course, mention meds given and route, prescriptions, significant lab abnormalities, going to OR and other pertinent info. @ -Based on the patient's presentation and physical exam, presents with nausea and vomiting and diarrhea for multiple days. Is asking for a work note. Was sent from urgent care for further eval. Exam relatively unremarkable. Vital signs within acceptable limits. We will obtain abdominal labs as well as symptomatically treat the patient with IV fluids, Zofran, Protonix. Patient was in agreement this plan. Patient's laboratory studies returned remarkable for no obvious significant abnormality. Patient does have slight elevations in LFTs that are minor. Discussed results with the patient. He will follow-up with his outpatient team. We both agree he does not require imaging at this time. Symptoms likely secondary to a viral syndrome. Recommended bland diet, as well as good hydration. He was in agreement this plan. Advise he follow-up to obtain his new prescription for his hepatitis C. I instructed the patient to follow up with their PCP in the next 1-3 days. I explained that the patient should return to the emergency department if they experience any worsening symptoms. Strict return precautions were discussed with the patient. The patient expressed understanding of these instructions. I answered all questions that the patient had. The patient was discharged home in good condition with their prescriptions and follow up information. Undiagnosed new problem with uncertain prognosis? @ -No Drug Therapy requiring intensive monitoring for toxicity (Heparin, Nitro, Insulin, Cardizem)? @ -No Were any procedures done? @ -No Diagnosis/symptom? @ -Abdominal pain of unknown etiology, diarrhea Acute, or Chronic, or Acute on Chronic? @ -Acute Uncomplicated (without systemic symptoms) or Complicated (systemic symptoms)? @ -Uncomplicated Side effects of treatment? @ -None Exacerbation, Progression, or Severe Exacerbation] @ -No Poses a threat to life or bodily function? @ -Unlikely - Lab Data Result diagrams: 12/21/23 17:32 12/21/23 17:32 Lab Results 12/21/23 12/21/23 12/21/23 Range/Units 17:32 17:32 17:32 WBC 5.4 (3.8-10.6) k/uL RBC 4.60 (4.30-5.90) m/uL Hgb 14.5 (13.0-17.5) gm/dL Hct 42.6 (39.0-53.0) % MCV 92.5 (80.0-100.0) fL MCH 31.5 (25.0-35.0) pg MCHC 34.0 (31.0-37.0) g/dL RDW 12.5 (11.5-15.5) % Plt Count 199 (150-450) k/uL MPV 7.3 Neutrophils % 62 % Lymphocytes % 25 % Monocytes % 9 % Eosinophils % 1 % Basophils % 1 % Neutrophils # 3.3 (1.3-7.7) k/uL Lymphocytes # 1.3 (1.0-4.8) k/uL Monocytes # 0.5 (0-1.0) k/uL Eosinophils # 0.1 (0-0.7) k/uL Basophils # 0.0 (0-0.2) k/uL PT 10.8 (10.0-12.5) sec INR 1.0 (<1.2) APTT 27.4 (22.0-30.0) sec Sodium (137-145) mmol/L Potassium (3.5-5.1) mmol/L Chloride (98-107) mmol/L Carbon Dioxide (22-30) mmol/L Anion Gap mmol/L BUN (9-20) mg/dL Creatinine (0.66-1.25) mg/dL Est GFR (CKD-EPI)AfAm (>60 ml/min/1.73 sqM) Est GFR (CKD-EPI)NonAf (>60 ml/min/1.73 sqM) Glucose (74-99) mg/dL Calcium (8.4-10.2) mg/dL Total Bilirubin (0.2-1.3) mg/dL AST (17-59) U/L ALT (4-49) U/L Alkaline Phosphatase (38-126) U/L Total Protein (6.3-8.2) g/dL Albumin (3.5-5.0) g/dL Amylase (30-110) U/L Lipase (23-300) U/L Urine Color Light Yellow Urine Appearance Clear (Clear) Urine pH 8.0 (5.0-8.0) Ur Specific [place] 1.015 (1.001-1.035) Urine Protein Negative (Negative) Urine Glucose (UA) Negative (Negative) Urine Ketones Negative (Negative) Urine Blood Negative (Negative) Urine Nitrite Negative (Negative) Urine Bilirubin Negative (Negative) Urine Urobilinogen 8.0 (<2.0) mg/dL Ur Leukocyte Esterase Negative (Negative) Influenza Type A (PCR) (Not Detectd) Influenza Type B (PCR) (Not Detectd) RSV (PCR) (Not Detectd) SARS-CoV-2 (PCR) (Not Detectd) 12/21/23 12/21/23 Range/Units 17:32 17:32 WBC (3.8-10.6) k/uL RBC (4.30-5.90) m/uL Hgb (13.0-17.5) gm/dL Hct (39.0-53.0) % MCV (80.0-100.0) fL MCH (25.0-35.0) pg MCHC (31.0-37.0) g/dL RDW (11.5-15.5) % Plt Count (150-450) k/uL MPV Neutrophils % % Lymphocytes % % Monocytes % % Eosinophils % % Basophils % % Neutrophils # (1.3-7.7) k/uL Lymphocytes # (1.0-4.8) k/uL Monocytes # (0-1.0) k/uL Eosinophils # (0-0.7) k/uL Basophils # (0-0.2) k/uL PT (10.0-12.5) sec INR (<1.2) APTT (22.0-30.0) sec Sodium 138 (137-145) mmol/L Potassium 4.2 (3.5-5.1) mmol/L Chloride 103 (98-107) mmol/L Carbon Dioxide 29 (22-30) mmol/L Anion Gap 6 mmol/L BUN 14 (9-20) mg/dL Creatinine 0.84 (0.66-1.25) mg/dL Est GFR (CKD-EPI)AfAm >90 (>60 ml/min/1.73 sqM) Est GFR (CKD-EPI)NonAf >90 (>60 ml/min/1.73 sqM) Glucose 83 (74-99) mg/dL Calcium 8.2 L (8.4-10.2) mg/dL Total Bilirubin 1.5 H (0.2-1.3) mg/dL AST 76 H (17-59) U/L ALT 108 H (4-49) U/L Alkaline Phosphatase 42 (38-126) U/L Total Protein 7.4 (6.3-8.2) g/dL Albumin 3.9 (3.5-5.0) g/dL Amylase 54 (30-110) U/L Lipase 48 (23-300) U/L Urine Color Urine Appearance (Clear) Urine pH (5.0-8.0) Ur Specific [place] (1.001-1.035) Urine Protein (Negative) Urine Glucose (UA) (Negative) Urine Ketones (Negative) Urine Blood (Negative) Urine Nitrite (Negative) Urine Bilirubin (Negative) Urine Urobilinogen (<2.0) mg/dL Ur Leukocyte Esterase (Negative) Influenza Type A (PCR) Not Detected (Not Detectd) Influenza Type B (PCR) Not Detected (Not Detectd) RSV (PCR) Not Detected (Not Detectd) SARS-CoV-2 (PCR) Not Detected (Not Detectd) Disposition Clinical Impression: Abdominal pain of unknown etiology, Diarrhea Disposition: HOME SELF-CARE Condition: Good Instructions (If sedation given, give patient instructions): Abdominal Pain (ED) Is patient prescribed a controlled substance at d/c from ED?: No Referrals: Ambar Silver MD [Primary Care Provider] - 1-2 days Time of Disposition: 18:30
[2023-12-21 17:45] LABS: Appearance,Urine Clear (Clear); Bilirubin,Urine Negative (Negative); Blood,Urine Negative (Negative); Color,Urine Light Yellow; Glucose,Urine (UA) Negative (Negative); Ketones,Urine Negative (Negative); Leukocyte Esterase,Urine Negative (Negative); Nitrite,Urine Negative (Negative); Protein,Urine Negative (Negative); Specific Gravity,Urine 1.015 (1.001-1.035)
[2023-12-21 17:59] LABS: ALT 108 U/L (4-49); AST 76 U/L (17-59); African American GFR (CKD) >90 (>60 ml/min/1.73 sqM); Albumin 3.9 g/dL (3.5-5.0); Alkaline Phosphatase 42 U/L (38-126); Amylase 54 U/L (30-110); Anion Gap 6 mmol/L; Basophils % (A) 1 %; Blood Urea Nitrogen 14 mg/dL (9-20); Calcium 8.2 mg/dL (8.4-10.2); Carbon Dioxide 29 mmol/L (22-30); Chloride 103 mmol/L (98-107); Eosinophils # (A) 0.1 k/uL (0-0.7); Eosinophils % (A) 1 %; Glucose 83 mg/dL (74-99); HCT 42.6 % (39.0-53.0); HGB 14.5 gm/dL (13.0-17.5); Lipase 48 U/L (23-300); Lymphocytes # (A) 1.3 k/uL (1.0-4.8); Lymphocytes % (A) 25 %; MCH 31.5 pg (25.0-35.0); MCV 92.5 fL (80.0-100.0); Mean Platelet Volume 7.3; Monocytes # (A) 0.5 k/uL (0-1.0); Monocytes % (A) 9 %; Neutrophils # (A) 3.3 k/uL (1.3-7.7); Neutrophils % (A) 62 %; Non-African American GFR(CKD) >90 (>60 ml/min/1.73 sqM); Platelet Count 199 k/uL (150-450); RDW 12.5 % (11.5-15.5); Sodium 138 mmol/L (137-145); Total Bilirubin 1.5 mg/dL (0.2-1.3); Total Protein 7.4 g/dL (6.3-8.2); WBC 5.4 k/uL (3.8-10.6)
[2023-12-21 18:00] LABS: Partial Thromboplastin Time 27.4 sec (22.0-30.0); Prothrombin Time 10.8 sec (10.0-12.5)
[2023-12-21 18:04] LABS: Potassium 4.2 mmol/L (3.5-5.1)
[2023-12-21] MEDS: ONDANSETRON 4 MG ODT STARTER PACK 2 TAB BTL PO STA (18:40)
[2023-12-21 19:20] VITALS: BP 102/69; PULSE 59; RESP 16
== END 2023-12-21 18:43 | disposition home or self-care (01) ==
LOC: EC 16:41
DX: R19.7 Diarrhea, unspecified (principal); R10.9 Unspecified abdominal pain; F17.200 Nicotine dependence, unspecified, uncomplicated; Z88.8 Allergy status to other drugs, medicaments and biological substances; Z11.52 Encounter for screening for COVID-19
CPT/HCPCS: 36415; 80053; 82150; 83690; 85025; 85610; 85730; 81003; 87636; 99284; 96374; 96375; 96361; J2405; S0119; C9113

== ENCOUNTER → 2024-05-14 | Outpatient (CLI) | payer OTHER ==
[2024-05-14 21:46] LABS: ALT 10 U/L (10-49); AST 28 U/L (14-35); Albumin 4.5 g/dL (3.8-4.9); Albumin/Globulin Ratio 1.55 Ratio (1.60-3.17); Alkaline Phosphatase 50 U/L (41-126); BUN/Creat Ratio 14.25 Ratio (12.00-20.00); Blood Urea Nitrogen 11.4 mg/dL (9.0-27.0); Calcium 9.2 mg/dL (8.7-10.3); Carbon Dioxide 18.5 mmol/L (21.6-31.8); Chloride 104 mmol/L (96-109); Globulin 2.9 g/dL (1.6-3.3); Glucose 89 mg/dL (70-110); Potassium 3.6 mmol/L (3.5-5.5); Sodium 136 mmol/L (135-145); Total Bilirubin 0.4 mg/dL (0.3-1.2); Total Protein 7.4 g/dL (6.2-8.2)
== END | disposition home or self-care (01) ==
LOC: LABWHC1 15:36
PROVIDERS: ATTEND Internal Medicine Infectious Disease
DX: B18.2 Chronic viral hepatitis C (principal)
CPT/HCPCS: 36415; 80053; 87522

== ENCOUNTER → 2024-06-21 | Outpatient (CLI) | payer OTHER | END | disposition home or self-care (01) | LOC: LABWHC1 14:34 | PROVIDERS: ATTEND Internal Medicine Infectious Disease | DX: B18.2 Chronic viral hepatitis C (principal) | CPT/HCPCS: 36415; 87522 ==

== ENCOUNTER 2024-07-04 17:34 | Emergency (ER) | payer OTHER ==
[2024-07-04 17:44] VITALS: TEMP 97.5
[2024-07-04] MEDS: KETOROLAC 15 MG/ML 1 ML VIAL IM STA ×2 (18:11→19:37)
--- NOTE | 2024-07-04 18:25 | ED ---
Neck Injury/Pain HPI - General Chief Complaint: Neck Pain/Injury Stated Complaint: neck pain Time Seen by Provider: 07/04/24 17:48 Source: RN notes reviewed Mode of arrival: ambulatory Limitations: no limitations - History of Present Illness Initial Comments: This is a 33-year-old male presenting with right neck pain and stiffness (5 out of 10) for several months that is worsened over the past couple days. Patient endorses limited range of movement of his neck since 11 AM today patient denies recent trauma of neck endorses history of T2/T3 disc bulging. Patient states movement of neck causes worse neck pain. Patient denies upper or lower extremity paresthesia, radiculopathy or weakness. Patient denies recent head/neck/back trauma. Patient Dors is use of an unknown muscle relaxer prior to arrival in ER. Patient denies fever, chills, fatigue, body aches, chest pain, dyspnea, abdominal pain, N/V/D, dizziness, headache. MD Complaint: neck pain Onset/Timin -: days(s) Severity scale (1-10): 5 Improves With: immobilization Worsens With: movement of neck - Related Data Home Medications Medication Instructions Recorded Confirmed Acetaminophen Tab [Tylenol] 650 mg PO Q4H PRN 04/05/23 04/05/23 Calcium/Magnesium/Zinc/Vitamin D 1 tab PO TID PRN 04/05/23 04/05/23 Chlorpheniramine Maleate 4 mg PO Q4H PRN 04/05/23 04/05/23 [Chlor-Trimeton] Loperamide HCl [Imodium A-D] 4 mg PO QID PRN 04/05/23 04/05/23 Melatonin 5 mg PO HS 04/05/23 04/05/23 Multivitamins, Thera [Multivitamin 1 tab PO DAILY 04/05/23 04/05/23 (formulary)] Zofran 2ml (4mg) Dilution Injection 2 ml IM Q6H PRN 04/05/23 04/05/23 cloNIDine HCL [Catapres] 0.1 mg PO Q4H PRN 04/05/23 04/05/23 ondansetron HCL [Zofran] 8 mg PO Q6H PRN 04/05/23 04/05/23 Previous Rx's Medication Instructions Recorded Cyclobenzaprine [Flexeril] 5 mg PO TID PRN #90 tablet 04/09/23 Ibuprofen [Motrin Ib] 600 mg PO Q8HR PRN #30 tab 04/09/23 Nicotine 21Mg/24Hr Patch [Habitrol] 1 patch TRANSDERM DAILY patch 04/09/23 methylPREDNISolone [Medrol Dose 0 mg PO DIRECTED #1 packet 04/09/23 Pack] Allergies Allergy/AdvReac Type Severity Reaction Status Date / Time methylprednisolone AdvReac Hallucinati Verified 07/04/24 17:39 ons Review of Systems ROS Statement: Those systems with pertinent positive or pertinent negative responses have been documented in the HPI. ROS Other: All systems not noted in ROS Statement are negative. Past Medical History Past Medical History: Liver Disease Additional Past Medical History / Comment(s): collapsed lung had a chest tube once- states he is too young to remember why it happened. Treatment for Hep C in 01/2024 History of Any Multi-Drug Resistant Organisms: None Reported Past Surgical History: No Surgical Hx Reported Past Psychological History: Anxiety, Bipolar, Depression Smoking Status: Current every day smoker Past Alcohol Use History: Occasional Past Drug Use History: Opiates, Prescription Drug Abuse General Exam Limitations: no limitations General appearance: alert, in no apparent distress Head exam: Present: atraumatic, normocephalic, normal inspection Eye exam: Present: normal appearance, PERRL, EOMI. Absent: scleral icterus, conjunctival injection, periorbital swelling ENT exam: Present: normal exam, mucous membranes moist Neck exam: Present: normal inspection. Absent: tenderness, meningismus, lymphadenopathy Respiratory exam: Present: normal lung sounds bilaterally. Absent: respiratory distress, wheezes, rales, rhonchi, stridor Cardiovascular Exam: Present: regular rate, normal rhythm, normal heart sounds. Absent: systolic murmur, diastolic murmur, rubs, gallop, clicks GI/Abdominal exam: Present: soft, normal bowel sounds. Absent: distended, tenderness, guarding, rebound, rigid Extremities exam: Present: normal inspection, full ROM, normal capillary refill. Absent: tenderness, pedal edema, joint swelling, calf tenderness Back exam: Present: muscle spasm, paraspinal tenderness (Positive bilateral paraspinal tenderness of upper back, especially rhomboid muscles and trapezius muscles with muscle spasms.). Absent: vertebral tenderness (Negative vertebral tenderness, step-off, crepitus) Neurological exam: Present: alert, oriented X3, CN II-XII intact Psychiatric exam: Present: normal affect, normal mood Skin exam: Present: warm, dry, intact, normal color. Absent: rash Course Vital Signs 07/04/24 07/04/24 17:39 19:53 Temperature 97.5 F L Pulse Rate 78 62 Respiratory 18 16 Rate Blood Pressure 108/75 127/81 O2 Sat by Pulse 97 96 Oximetry Medical Decision Making - Medical Decision Making Was pt. sent in by a medical professional or institution (, PA, AIR BAG BUILDER, urgent care, hospital, or skilled nursing...) When possible be specific @ -No Did you speak to anyone other than the patient for history (EMS, parent, family, police, friend...)? What history was obtained from this source @ -No Did you review nursing and triage notes (agree or disagree)? Why? @ -I reviewed and agree with nursing and triage notes Were old charts reviewed (outside hosp., previous admission, EMS record, old EKG, old radiological studies, urgent care reports/EKG's, skilled nursing records)? Report findings @ -No old charts were reviewed Differential Diagnosis (chest pain, altered mental status, abdominal pain women, abdominal pain men, vaginal bleeding, weakness, fever, dyspnea, syncope, headache, dizziness, GI bleed, back pain, seizure, CVA, palpatations, mental health, musculoskeletal)? @ -Cervical spine fracture, thoracic spine fracture, vertebral dislocation, disc herniation, cervical stenosis, viral meningitis, bacterial meningitis, muscle spasm, this is not an exhaustive list EKG interpreted by me (3pts min.). @ -Not done X-rays interpreted by me (1pt min.). @ -Cervical spine x-ray revealed minor disc degeneration between C5/C6. Otherwise no obvious fracture or dislocation. CT interpreted by me (1pt min.). @ -None done U/S interpreted by me (1pt. min.). @ -None done What testing was considered but not performed or refused? (CT, X-rays, U/S, labs)? Why? @ -None What meds were considered but not given or refused? Why? @ -Patient declined Norflex IM and would prefer T3 p.o. for pain Did you discuss the management of the patient with other professionals (professionals i.e. , PA, AIR BAG BUILDER, lab, RT, psych nurse, director social service, pediatric dermatologist, teacher, driver license reviewing officer, therapeutic case manager)? Give summary @ -No Was smoking cessation discussed for >3mins.? @ -No Was critical care preformed (if so, how long)? @ -No Were there social determinants of health that impacted care today? How? (Homelessness, low income, unemployed, alcoholism, drug addiction, transportation, low edu. Level, literacy, decrease access to med. care, halfway, rehab)? @ -No Was there de-escalation of care discussed even if they declined (Discuss DNR or withdrawal of care, Hospice)? DNR status @ -No What co-morbidities impacted this encounter? (DM, HTN, Smoking, COPD, CAD, Cancer, CVA, ARF, Chemo, Hep., AIDS, mental health diagnosis, sleep apnea, morbid obesity)? @ -None Was patient admitted / discharged? Hospital course, mention meds given and route, prescriptions, significant lab abnormalities, going to OR and other pertinent info. @ -Discharge. Cervical spine x-ray revealed no significant concerning findings. Initially given IM Toradol for pain with minimal relief. Patient then offered additional dose of IM Toradol and Norflex. Patient states he has recently taken p.o. muscle relaxer and would prefer a different medication. Patient given IM Toradol and p.o. T3. Advised heating pad and gentle massage of muscle spasms. Continue alternating Tylenol/Motrin every 4 hours for ongoing pain. Undiagnosed new problem with uncertain prognosis? @ -No Drug Therapy requiring intensive monitoring for toxicity (Heparin, Nitro, Insulin, Cardizem)? @ -No Were any procedures done? @ -No Diagnosis/symptom? @ -Paraspinal muscle pain/spasm Acute, or Chronic, or Acute on Chronic? @ -Acute Uncomplicated (without systemic symptoms) or Complicated (systemic symptoms)? @ -Uncomplicated Side effects of treatment? @ -No Exacerbation, Progression, or Severe Exacerbation? @ -No Poses a threat to life or bodily function? How? (Chest pain, USA, VT, pneumonia, PE, COPD, DKA, ARF, appy, cholecystitis, CVA, Diverticulitis, Homicidal, Suicidal, threat to staff... and all critical care pts) @ -No Disposition Clinical Impression: Strain of neck muscle Disposition: HOME SELF-CARE Condition: Good Instructions (If sedation given, give patient instructions): Cervical Strain (ED) Is patient prescribed a controlled substance at d/c from ED?: No Referrals: Anitha Carmen MD [Primary Care Provider] - 1-2 days Time of Disposition: 19:44
--- NOTE | 2024-07-04 18:44 | XR ---
EXAMINATION TYPE: XR cervical spine limited DATE OF EXAM: 07/04/2024 6:10 PM COMPARISON: None CLINICAL INDICATION: Male, 33 years old with history of Neck pain/stiffness; H TECHNIQUE: The cervical spine was imaged in frontal, lateral, and odontoid. FINDINGS: The osseous structures show normal alignment without evidence of an acute fracture. There are osteoph ytes noted throughout the cervical spine on the anterior and lateral aspects of the vertebral bodies. The intervertebral disk spaces are narrowed at multiple levels Pedicles are intact. Soft tissues ar e within normal limits. The odontoid appears intact. IMPRESSION: 1. No fracture or dislocation. 2. Moderate to severe C5-C6 degenerative disc disease changes of the cervical spine. [facility], , 07/04/2024 6:42 PM
[2024-07-04] MEDS: ORPHENADRINE 30 MG/ML 2 ML VIAL IM STA (19:39)
[2024-07-04] MEDS: Acetaminophen-Codeine 300-30mg TAB PO STA (19:42)
[2024-07-04 19:55] VITALS: BP 127/81; PULSE 62; RESP 16
== END 2024-07-04 19:53 | disposition home or self-care (01) ==
LOC: EC 17:34
DX: S16.1XXA Strain of muscle, fascia and tendon at neck level, initial encounter (principal); F17.200 Nicotine dependence, unspecified, uncomplicated; Z88.8 Allergy status to other drugs, medicaments and biological substances; X50.0XXA Overexertion from strenuous movement or load, initial encounter
CPT/HCPCS: 72040; 99283; J1885

== ENCOUNTER 2024-07-05 12:27 | Emergency (ER) | payer OTHER ==
[2024-07-05 12:53] VITALS: RESP 20
[2024-07-05] MEDS: HYDROmorphone 0.5 MG/0.5 ML SYRINGE IM STA ×2 (13:44→15:38)
[2024-07-05] MEDS: KETOROLAC 15 MG/ML 1 ML VIAL IM STA ×2 (13:45→15:38)
--- NOTE | 2024-07-05 14:20 | CT ---
EXAMINATION TYPE: CT cervical spine wo con DATE OF EXAM: 07/05/2024 2:04 PM COMPARISON: MRI 04/08/2023 CLINICAL INDICATION: Male, 33 years old with history of Severe neck pain/stiffness, radiculopathy; Se teresa neck pain/stiffness, radiculopathy TECHNIQUE: Axial CT images from the skull base to the inferior aspect of T2 we obtained without intra venous contrast. Coronal and sagittal reformatted images were also reviewed. Contrast used: mL of , (if blank None) Oral contrast used: (if blank None) CT DLP: 279.7 mGycm, Automated exposure control for dose reduction was used. FINDINGS: Fracture: None. Osseous structures: Multilevel degenerative disc disease changes with endplate spurring and disc oste ophyte complex's. Vertebral alignment: Alignment within normal limits. Spinal canal/Neural Foramina: No evidence of significant spinal canal narrowing. Facet joint uncovert ebral joint arthropathy scattered throughout the cervical spine with varying degrees of neural forami nal stenosis. Neural foraminal stenosis at C6-C7 with at least moderate stenosis. Neck soft tissues: Prevertebral soft tissues are within normal limits. Other: The airway is patent. The lung apices are clear. IMPRESSION: 1. No evidence of cervical spine fracture. 2. Mild to moderate multilevel degenerative disc disease with moderate C6-C7 neural foraminal stenosi s [facility], , 07/05/2024 2:18 PM
--- NOTE | 2024-07-05 15:09 | ED ---
Neck Injury/Pain HPI - General Chief Complaint: Neck Pain/Injury Stated Complaint: neck pain Time Seen by Provider: 07/05/24 12:42 Source: RN notes reviewed Mode of arrival: ambulatory Limitations: no limitations - History of Present Illness Initial Comments: This is a 33-year-old male presenting with neck pain (7 out of 10) x 2 days. Patient states he was seen in the ER yesterday and received Toradol and a T3 tablet with transient relief of pain. Endorses ongoing neck pain that worsens with extension of neck, stating he was a "crunching" sound when he looks upwards. Also endorses new bilateral upper extremity sharp pain and tingling. Patient denies recent trauma prior to start of symptoms. Patient denies fever, headache, altered mental status, altered LOC, N/V. MD Complaint: neck pain Onset/Timin -: days(s) Severity scale (1-10): 7 Quality: sharp Improves With: immobilization Worsens With: movement of neck Associated Symptoms: numbness, tingling Treatments Prior to Arrival: Ibuprofen - Related Data Home Medications Medication Instructions Recorded Confirmed Acetaminophen Tab [Tylenol] 650 mg PO Q4H PRN 04/05/23 04/05/23 Calcium/Magnesium/Zinc/Vitamin D 1 tab PO TID PRN 04/05/23 04/05/23 Chlorpheniramine Maleate 4 mg PO Q4H PRN 04/05/23 04/05/23 [Chlor-Trimeton] Loperamide HCl [Imodium A-D] 4 mg PO QID PRN 04/05/23 04/05/23 Melatonin 5 mg PO HS 04/05/23 04/05/23 Multivitamins, Thera [Multivitamin 1 tab PO DAILY 04/05/23 04/05/23 (formulary)] Zofran 2ml (4mg) Dilution Injection 2 ml IM Q6H PRN 04/05/23 04/05/23 cloNIDine HCL [Catapres] 0.1 mg PO Q4H PRN 04/05/23 04/05/23 ondansetron HCL [Zofran] 8 mg PO Q6H PRN 04/05/23 04/05/23 Previous Rx's Medication Instructions Recorded Cyclobenzaprine [Flexeril] 5 mg PO TID PRN #90 tablet 04/09/23 Ibuprofen [Motrin Ib] 600 mg PO Q8HR PRN #30 tab 04/09/23 Nicotine 21Mg/24Hr Patch [Habitrol] 1 patch TRANSDERM DAILY patch 04/09/23 methylPREDNISolone [Medrol Dose 0 mg PO DIRECTED #1 packet 04/09/23 Pack] Cyclobenzaprine [Flexeril] 10 mg PO TID PRN #15 tab 07/05/24 Ibuprofen [Motrin] 600 mg PO Q8HR PRN #30 tab 07/05/24 Allergies Allergy/AdvReac Type Severity Reaction Status Date / Time methylprednisolone AdvReac Hallucinati Verified 07/04/24 17:39 ons Review of Systems ROS Statement: Those systems with pertinent positive or pertinent negative responses have been documented in the HPI. ROS Other: All systems not noted in ROS Statement are negative. Past Medical History Past Medical History: Liver Disease Additional Past Medical History / Comment(s): collapsed lung had a chest tube once- states he is too young to remember why it happened. 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 Absent: scleral icterus, conjunctival injection, periorbital swelling ENT exam: Present: normal exam, mucous membranes moist Neck exam: Present: normal inspection, tenderness (Positive mid cervical spine tenderness without crepitus or deformity/step-off. Patient notes significant limited range of movement.), other (Negative kerning/Brudzinski test). Absent: meningismus, full ROM, lymphadenopathy Respiratory exam: Present: normal lung sounds bilaterally. Absent: respiratory distress, wheezes, rales, rhonchi, stridor Cardiovascular Exam: Present: regular rate, normal rhythm, normal heart sounds. Absent: systolic murmur, diastolic murmur, rubs, gallop, clicks GI/Abdominal exam: Present: soft, normal bowel sounds. Absent: distended, tenderness, guarding, rebound, rigid Extremities exam: Present: normal inspection, full ROM, normal capillary refill. Absent: tenderness, pedal edema, joint swelling, calf tenderness Back exam: Present: normal inspection Neurological exam: Present: alert, oriented X3, CN II-XII intact Psychiatric exam: Present: normal affect, normal mood Skin exam: Present: warm, dry, intact, normal color. Absent: rash Course Vital Signs 07/05/24 07/05/24 12:50 15:32 Temperature 97.5 F L 97.9 F Pulse Rate 63 66 Respiratory 20 20 Rate Blood Pressure 130/79 132/76 O2 Sat by Pulse 98 99 Oximetry Medical Decision Making - Medical Decision Making Was pt. sent in by a medical professional or institution (, PA, CAR DESIGNER, urgent care, hospital, or fpc...) When possible be specific @ -No Did you speak to anyone other than the patient for history (EMS, parent, family, police, friend...)? What history was obtained from this source @ -No Did you review nursing and triage notes (agree or disagree)? Why? @ -I reviewed and agree with nursing and triage notes Were old charts reviewed (outside hosp., previous admission, EMS record, old EKG, old radiological studies, urgent care reports/EKG's, fpc records)? Report findings @ -No old charts were reviewed Differential Diagnosis (chest pain, altered mental status, abdominal pain women, abdominal pain men, vaginal bleeding, weakness, fever, dyspnea, syncope, headache, dizziness, GI bleed, back pain, seizure, CVA, palpatations, mental health, musculoskeletal)? @ -Cervical neck pain, cervical spine sprain, meningitis, torticollis, cervical stenosis, muscle spasm, vertebral dislocation, vertebral disc herniation, nerve impingement, this is not an exhaustive list. EKG interpreted by me (3pts min.). @ -Not done X-rays interpreted by me (1pt min.). @ -None done CT interpreted by me (1pt min.). @ -Cervical spine CT scan reveals moderate stenosis of cervical spinal canal. No obvious fracture or dislocation. U/S interpreted by me (1pt. min.). @ -None done What testing was considered but not performed or refused? (CT, X-rays, U/S, labs)? Why? @ -None What meds were considered but not given or refused? Why? @ -None Did you discuss the management of the patient with other professionals (professionals i.e. , PA, CAR DESIGNER, lab, RT, psych nurse, social science instructor, electrical continuity inspector, teacher, public health service officer, business case analyst)? Give summary @ -No Was smoking cessation discussed for >3mins.? @ -No Was critical care preformed (if so, how long)? @ -No Were there social determinants of health that impacted care today? How? (Homelessness, low income, unemployed, alcoholism, drug addiction, transportation, low edu. Level, literacy, decrease access to med. care, fdc, rehab)? @ -No Was there de-escalation of care discussed even if they declined (Discuss DNR or withdrawal of care, Hospice)? DNR status @ -No What co-morbidities impacted this encounter? (DM, HTN, Smoking, COPD, CAD, Cancer, CVA, ARF, Chemo, Hep., AIDS, mental health diagnosis, sleep apnea, morbid obesity)? @ -None Was patient admitted / discharged? Hospital course, mention meds given and route, prescriptions, significant lab abnormalities, going to OR and other pertinent info. @ -Discharge. CT scan showing cervical spinal stenosis was diagnostic for patient's condition. Patient given IV Toradol and Dilaudid with good pain control. P.o. Motrin 800 and Flexeril sent to pharmacy and patient sent home with T3 starter pack. Advised follow-up with orthospine for ongoing care. Undiagnosed new problem with uncertain prognosis? @ -No Drug Therapy requiring intensive monitoring for toxicity (Heparin, Nitro, Insulin, Cardizem)? @ -No Were any procedures done? @ -No Diagnosis/symptom? @ -Cervical spine stenosis Acute, or Chronic, or Acute on Chronic? @ -Acute Uncomplicated (without systemic symptoms) or Complicated (systemic symptoms)? @ -Complicated Side effects of treatment? @ -No Exacerbation, Progression, or Severe Exacerbation? @ -Exacerbation Poses a threat to life or bodily function? How? (Chest pain, USA, [place], pneumonia, PE, COPD, DKA, ARF, appy, cholecystitis, CVA, Diverticulitis, Homicidal, Suicidal, threat to staff... and all critical care pts) @ -No Disposition Clinical Impression: Cervical stenosis of spinal canal Disposition: HOME SELF-CARE Condition: Good Instructions (If sedation given, give patient instructions): Cervical Spinal Stenosis (ED) Prescriptions: Cyclobenzaprine [Flexeril] 10 mg PO TID PRN #15 tab PRN Reason: Spasms Ibuprofen [Motrin] 600 mg PO Q8HR PRN #30 tab PRN Reason: Pain Is patient prescribed a controlled substance at d/c from ED?: No Referrals: Anitha Carmen MD [Primary Care Provider] - 1-2 days Time of Disposition: 15:09
[2024-07-05] MEDS: ACET/COD 300 MG/30 MG STARTER PACK 6 TAB BTL PO STA (15:18)
[2024-07-05 15:34] VITALS: BP 132/76; PULSE 66; TEMP 97.9
== END 2024-07-05 15:42 | disposition home or self-care (01) ==
LOC: EC 12:27
DX: M48.02 Spinal stenosis, cervical region (principal); F17.200 Nicotine dependence, unspecified, uncomplicated; Z88.8 Allergy status to other drugs, medicaments and biological substances
CPT/HCPCS: 72125; 99284; 96372 ×4; J1885; J1171

== ENCOUNTER 2024-08-05 19:05 | Emergency (ER) | payer OTHER ==
[2024-08-05 19:28] VITALS: RESP 18
--- NOTE | 2024-08-05 19:50 | ED ---
Back Pain [facility] - General Chief Complaint: Back Pain/Injury Stated Complaint: back/neck pain Time Seen by Provider: 08/05/24 19:31 Source: patient, RN notes reviewed Limitations: no limitations - History of Present Illness Initial Comments: This is a 33-year-old male presenting to the emergency department chief complaint of thoracic back pain that has been worsening over the past week. Patient states that he does have a history of cervical spinal stenosis and is scheduled to see a insurance specialist next month. He denies recent injuries or trauma to his thoracic spine. States that pain is exacerbated upon flexion of the back and rotation. He denies paresthesias of bilateral upper extremities, loss of bladder or bowel continence, or saddle anesthesias. Patient is prescribed muscle relaxant that he has been taking at home intermittently with minimal relief. Has not attempted any other medications at this time. - Related Data Home Medications Medication Instructions Recorded Confirmed Acetaminophen Tab [Tylenol] 650 mg PO Q4H PRN 04/05/23 04/05/23 Calcium/Magnesium/Zinc/Vitamin D 1 tab PO TID PRN 04/05/23 04/05/23 Chlorpheniramine Maleate 4 mg PO Q4H PRN 04/05/23 04/05/23 [Chlor-Trimeton] Loperamide HCl [Imodium A-D] 4 mg PO QID PRN 04/05/23 04/05/23 Melatonin 5 mg PO HS 04/05/23 04/05/23 Multivitamins, Thera [Multivitamin 1 tab PO DAILY 04/05/23 04/05/23 (formulary)] Zofran 2ml (4mg) Dilution Injection 2 ml IM Q6H PRN 04/05/23 04/05/23 cloNIDine HCL [Catapres] 0.1 mg PO Q4H PRN 04/05/23 04/05/23 ondansetron HCL [Zofran] 8 mg PO Q6H PRN 04/05/23 04/05/23 Previous Rx's Medication Instructions Recorded Cyclobenzaprine [Flexeril] 5 mg PO TID PRN #90 tablet 04/09/23 Ibuprofen [Motrin Ib] 600 mg PO Q8HR PRN #30 tab 04/09/23 Nicotine 21Mg/24Hr Patch [Habitrol] 1 patch TRANSDERM DAILY patch 04/09/23 methylPREDNISolone [Medrol Dose 0 mg PO DIRECTED #1 packet 04/09/23 Pack] Cyclobenzaprine [Flexeril] 10 mg PO TID PRN #15 tab 07/05/24 Ibuprofen [Motrin] 600 mg PO Q8HR PRN #30 tab 07/05/24 Allergies Allergy/AdvReac Type Severity Reaction Status Date / Time methylprednisolone AdvReac Hallucinati Verified 07/04/24 17:39 ons Review of Systems ROS Statement: Those systems with pertinent positive or pertinent negative responses have been documented in the HPI. ROS Other: All systems not noted in ROS Statement are negative. Past Medical History Past Medical History: Liver Disease Additional Past Medical History / Comment(s): collapsed lung had a chest tube once- states he is too young to remember why it happened, herniated disk. 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 Absent: scleral icterus, conjunctival injection, periorbital swelling Neck exam: Present: normal inspection. Absent: tenderness, meningismus, lymphadenopathy Respiratory exam: Present: normal lung sounds bilaterally. Absent: respiratory distress, wheezes, rales, rhonchi, stridor Cardiovascular Exam: Present: regular rate, normal rhythm, normal heart sounds. Absent: systolic murmur, diastolic murmur, rubs, gallop, clicks GI/Abdominal exam: Present: soft, normal bowel sounds. Absent: distended, tenderness, guarding, rebound, rigid Extremities exam: Present: normal inspection, full ROM, normal capillary refill. Absent: tenderness, pedal edema, joint swelling, calf tenderness Back exam: Present: normal inspection, full ROM (Pain with active range of motion of the thoracic spine), tenderness (Mid thoracic spine). Absent: CVA tenderness (R), CVA tenderness (L), muscle spasm, rash noted Neurological exam: Present: alert, oriented X3, CN II-XII intact Course Vital Signs 08/05/24 08/05/24 19:24 21:19 Temperature 98.6 F 98.4 F Pulse Rate 62 71 Respiratory 18 18 Rate Blood Pressure 111/72 115/74 O2 Sat by Pulse 97 98 Oximetry Medical Decision Making - Medical Decision Making Was pt. sent in by a medical professional or institution (, PA, RESPIRATORY SCIENTIST, urgent care, hospital, or snf...) When possible be specific @ -No Did you speak to anyone other than the patient for history (EMS, parent, family, police, friend...)? What history was obtained from this source @ -No Did you review nursing and triage notes (agree or disagree)? Why? @ -I reviewed and agree with nursing and triage notes Were old charts reviewed (outside hosp., previous admission, EMS record, old EKG, old radiological studies, urgent care reports/EKG's, snf records)? Report findings @ -No old charts were reviewed Differential Diagnosis (chest pain, altered mental status, abdominal pain women, abdominal pain men, vaginal bleeding, weakness, fever, dyspnea, syncope, headache, dizziness, GI bleed, back pain, seizure, CVA, palpatations, mental health, musculoskeletal)? @ -Differential Back Pain: Strain, zoster, cauda equina syndrome, epidural abscess, vertebral osteomyelitis, discitis, fracture, subluxation, disc herniation, DJD, spinal stenosis, dissection, AAA, pancreatitis, peptic ulcer disease, pyelonephritis, kidney stone, this is not meant to be an all-inclusive list. EKG interpreted by me (3pts min.). @ -none X-rays interpreted by me (1pt min.). @ -None done CT interpreted by me (1pt min.). @ -None done U/S interpreted by me (1pt. min.). @ -None done What testing was considered but not performed or refused? (CT, X-rays, U/S, labs)? Why? @ -X-ray imaging of the spine was considered but deferred at this time. There is minimal clinical concern for osseous abnormality as patient's pain is more musculoskeletal related as it exacerbated on range of motion and with palpation additionally there is no acute trauma that may have resulted in fracture of the spine. Patient is in agreement with deferring x-ray imaging at this time. What meds were considered but not given or refused? Why? @ -None Did you discuss the management of the patient with other professionals (professionals i.e. , PA, RESPIRATORY SCIENTIST, lab, RT, psych nurse, director of social media marketing, bricklayer tender, teacher, correction officer supervisor, housing case manager)? Give summary @ -No Was smoking cessation discussed for >3mins.? @ -No Was critical care preformed (if so, how long)? @ -No Were there social determinants of health that impacted care today? How? ( Homelessness, low income, unemployed, alcoholism, drug addiction, transportation, low edu. Level, literacy, decrease access to med. care, skilled nursing, rehab)? @ -No Was there de-escalation of care discussed even if they declined (Discuss DNR or withdrawal of care, Hospice)? DNR status @ -No What co-morbidities impacted this encounter? (DM, HTN, Smoking, COPD, CAD, Cancer, CVA, ARF, Chemo, Hep., AIDS, mental health diagnosis, sleep apnea, morbid obesity)? @ -None Was patient admitted / discharged? Hospital course, mention meds given and route, prescriptions, significant lab abnormalities, going to OR and other pertinent info. @ -Discharge. 33-year-old male with back pain. Patient's pain exacerbated with range of motion and palpation. No overlying skin changes. He is provided with dose of Toradol, Norflex, lidocaine patch. On reevaluation patient states that pain has somewhat improved. Recommend the patient continue gentle exercising at home in addition to taking Tylenol Motrin as needed. Patient is provided with a starter pack of Tylenol 3 and instructed to follow-up outpatient with primary care provider for further evaluation. Case discussed with Undiagnosed new problem with uncertain prognosis? @ -No Drug Therapy requiring intensive monitoring for toxicity (Heparin, Nitro, Insulin, Cardizem)? @ -No Were any procedures done? @ -No Diagnosis/symptom? @ -Thoracic back pain, muscle spasm of back Acute, or Chronic, or Acute on Chronic? @ -acute Uncomplicated (without systemic symptoms) or Complicated (systemic symptoms)? @ -uncomplicated Side effects of treatment? @ -No Exacerbation, Progression, or Severe Exacerbation? @ -No Poses a threat to life or bodily function? How? (Chest pain, [place], [place], pneumonia, PE, COPD, DKA, ARF, appy, cholecystitis, CVA, Diverticulitis, Homicidal, Suicidal, threat to staff... and all critical care pts) @ -No Disposition Clinical Impression: Thoracic back pain Disposition: HOME SELF-CARE Condition: Good Instructions (If sedation given, give patient instructions): Back Pain (ED) Additional Instructions: Please return to the Emergency Department if symptoms worsen or any other concerns. Is patient prescribed a controlled substance at d/c from ED?: No Referrals: Anitha Carmen MD [Primary Care Provider] - 1-2 days Time of Disposition: 20:47
[2024-08-05] MEDS: ORPHENADRINE 30 MG/ML 2 ML VIAL IM STA (19:54)
[2024-08-05] MEDS: LIDOCAINE 4% PATCH TOPICAL ONE (19:55)
[2024-08-05] MEDS: KETOROLAC 15 MG/ML 1 ML VIAL IM STA (19:55)
[2024-08-05] MEDS: HYDROcodone/APAP 5-325MG 1 EACH TAB PO STA (21:00)
[2024-08-05] MEDS: ACET/COD 300 MG/30 MG STARTER PACK 6 TAB BTL PO STA (21:02)
[2024-08-05 21:20] VITALS: BP 115/74; PULSE 71; TEMP 98.4
== END 2024-08-05 21:19 | disposition home or self-care (01) ==
LOC: EC 19:05
DX: M54.6 Pain in thoracic spine (principal); F17.290 Nicotine dependence, other tobacco product, uncomplicated; Z88.8 Allergy status to other drugs, medicaments and biological substances
CPT/HCPCS: 99283; 96372; J2360; J1885

== ENCOUNTER → 2024-09-10 | Outpatient (CLI) | payer OTHER ==
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
== END | disposition home or self-care (01) ==
LOC: RADMRIMAIN 08:41
PROVIDERS: ATTEND Orthopaedic Surgery
DX: M47.22 Other spondylosis with radiculopathy, cervical region (principal); M48.02 Spinal stenosis, cervical region; M50.122 Cervical disc disorder at C5-C6 level with radiculopathy
CPT/HCPCS: 72141

== ENCOUNTER → 2025-02-12 | Outpatient (CLI) | payer OTHER | END | disposition home or self-care (01) | LOC: LABPAT 12:24 | PROVIDERS: ATTEND Orthopaedic Surgery | DX: Z01.818 Encounter for other preprocedural examination (principal); M48.061 Spinal stenosis, lumbar region without neurogenic claudication; Z22.322 Carrier or suspected carrier of Methicillin resistant Staphylococcus aureus | CPT/HCPCS: 86850; 86900; 86901; 87070 ==

== ENCOUNTER 2025-02-18 11:22 | Day surgery (SDC) | payer OTHER ==
[~2025-02-18 11:22] MED LIST: ONDANSETRON 4 MG/2 ML VIAL IVP PRN; TRANEXAMIC 1,000 MG/100ML-NACL 1,000 MG in SALINE 1 100ML.BAG IVPB PRN
[2025-02-18] MEDS: IV FLUID CONTINUATION 1,000 ML IV ONE (11:54)
[2025-02-18] MEDS: GABAPENTIN 300 MG CAP PO PRN (12:46)
[2025-02-18] MEDS: ACETAMINOPHEN TAB 500 MG TAB PO PRN (12:46)
[2025-02-18] MEDS: LACTATED RINGERS 1,000 ML IV SCH (12:47)
[2025-02-18] MEDS: ONDANSETRON 4 MG/2 ML VIAL IVP ONE (12:47)
[2025-02-18] MEDS ORDERED: HYDROmorphone (PF) 1 MG/ML ONE (12:50)
[2025-02-18] MEDS ORDERED: PROPOFOL 10 MG/ML 20 ML VIAL IV ONE (12:50)
[2025-02-18] MEDS ORDERED: ROCURONIUM 10 MG/ML (5 ML VIAL) IV ONE (12:50)
[2025-02-18] MEDS ORDERED: fentaNYL (PF) 50 MCG/ML 2 ML AMP ONE (12:50)
[2025-02-18] MEDS ORDERED: NEOSTIGMINE 1 MG/ML 10 ML VIAL ONE (12:50)
[2025-02-18] MEDS ORDERED: KETAMINE HCL IN 0.9 % NACL 50 MG/5 ML SYRINGE ONE (12:50)
[2025-02-18] MEDS ORDERED: LIDOCAINE 4% LTA KIT (4 ML) TOPICAL ONE (12:50)
[2025-02-18] MEDS ORDERED: SUCCINYLCHOLINE CHLORIDE 200 MG/10 ML VIAL IV ONE (12:50)
[2025-02-18] MEDS ORDERED: TRANEXAMIC 1,000 MG/100ML-NACL PREMIX BAG ONE (12:50)
[2025-02-18] MEDS ORDERED: DEXAMETHASONE SOD PHOSPHATE 10 MG/ML 1 ML VIAL ONE (12:50)
[2025-02-18] MEDS ORDERED: MIDAZOLAM 2 MG/2 ML VIAL ONE (12:50)
[2025-02-18] MEDS ORDERED: GLYCOPYRROLATE 0.2 MG/ML 2 ML VIAL ONE (12:50)
--- NOTE | 2025-02-18 12:58 | P.HPOR ---
History of Present Illness H&P Date: 02/14/25 Clinical Summary Clinical Summary Isaias Rodrigues presents with severe cervical spine issues, specifically spondylosis with disc collapse at C5-6 and C6-7 levels, causing shoulder, arm, and hand problems. An MRI on 09/10/24 confirmed these findings. Due to the severity and progression of symptoms, a C5 to 7 anterior cervical discectomy and fusion has been recommended. The surgery is scheduled for Friday, with an expected duration of 1.5 hours. Post-operative care includes a multimodal pain management approach, wearing a soft collar for the first couple of weeks, and a recovery period of 6-8 weeks. Given Isaias's history of substance use recovery, special consideration is being given to pain management, with a focus on minimizing opioid use. Chief Complaint Chief Complaint Neck pain with associated shoulder issues, arm problems, hand weakness, and dropping objects. SPINE SURGERY CLINICAL AND RISK REVIEW SPINE SURGERY CLINICAL AND RISK REVIEW Isaias Rodrigues is a young male presenting for evaluation of neck pain with associated upper extremity symptoms. It was my pleasure to have seen and examined Isaias Rodrigues. - Imaging demonstrates severe spondylosis with disc collapse at C5-6 and C6-7, and pressure on the cervical cord. - Physical exam findings include shoulder issues, arm weakness, hand weakness, dropping objects, and possible unsteadiness on feet. I have explained to Isaias that as his condition progresses, it will cause further neurological deficits and eventual paralysis. Based on his imaging, physical exam, and the rapid progression and disabling nature of his symptoms, I recommend surgery in the form of a C5 to 7 anterior cervical discectomy and fusion. I discussed the risks and benefits of this procedure at length with Isaias. He has agreed to consider pursuing the procedure. Prior to surgery, he should follow up with his PCP for clearance. Questions were invited and answered, and Isaias wishes to proceed as outlined below. Recommendations Recommendations 1. Proceed with C5 to 7 anterior cervical discectomy and fusion on Friday. 2. Surgery expected to last approximately 1.5 hours. 3. Isaias to arrive at the hospital around 10:30 AM on the day of surgery. 4. Implement multimodal pain management approach post-surgery, including gabapentin, Flexeril, and anti-inflammatories. 5. Limit opioid pain medication to 2-3 days post-surgery if needed. 6. Wear soft collar for the first couple of weeks, especially when up and about or in a car. 7. First post-operative check-up scheduled for two weeks after surgery. 8. No stitches to remove - all sutures are dissolvable under the skin. 9. Isaias to take antibiotics for three days post-surgery to prevent infection. 10. Full recovery period expected to be 6-8 weeks. Risks Risks All surgical procedures come with inherent risks, including those related to positioning, anesthesia, intraoperative findings, and postoperative complications. It is important to understand that surgery does not come with any guarantee of a successful outcome as complications and adverse events are always possible. The patient was given a handout in the office today discussing the surgical procedure and risks associated with the intervention, both of which were discussed with the patient. These risks include but are not limited to the following: - Experiencing same, different or even worse symptoms in back, neck, arms, or legs compared to before surgery. - Requiring further surgery or other forms of treatment presently or at some time in the future at same or other levels of the intended spine surgery. - On an extreme but fortunately relatively rare basis severe complications such as blindness, stroke, heart attack, temporary and/or permanent nerve injury, paralysis, coma, or may occur, sometimes without known explanation. - Surgical complications may include but are not limited to risk of infection, fluid accumulation in the surgical dissection site, including a seroma or hematoma, that requires additional surgery, wound drainage, bleeding, new numbness or weakness, vision changes/loss, spinal fluid leakage, non-healing and/or infected incision, headaches, difficulty or inability to swallow, hoarseness, hemopneumothorax, pneumothorax, impotence, retrograde ejaculation, vaginal dryness; injury to nerves, spinal cord, blood vessels, lymphatics or other vital organs (i.e., bowel injury, injury to the great vessels); heterotopic bone formation; complications related to the hardware such as screws, rods, cages including misplaced hardware, device failure, instrumentation at the wrong spine level, hardware fracture/breakage, or hardware loosening; vertebral failure of the spinal column above or below the newly placed hardware; retained surgical instrumentations or devices and the need for further surgery. - Medical risks of the planned spine surgery include but are not limited to generalized infections to the whole body or local areas outside of the surgical site (sepsis), heart attack, bleeding, anaphylaxis, meningitis, seizure, epilepsy, hearing loss, burn khan, laceration of the head or other areas of the body, bruising, hypersensitivity of the skin, bladder over distension; allergic reaction; shoulder injury related to positioning; fat, blood and air clots to other areas of the body like heart, lungs, brain; failure of internal organs such as lungs, kidneys, liver and excessive bleeding. If blood transfusions are necessary, note that transfusions may cause intolerance reactions such as anaphylaxis or other complex reactions. - Despite best efforts, the results of spine surgery might not heal in terms of bone, soft tissues such as skin, fascia, ligaments, and joints. Additionally, in order to achieve best possible results, spine surgery may be carried out beyond the initially planned levels and involve decompression, fusion including insertion of hardware at levels other than the original intended area of surgical interest change some portions of the procedure in order to ensure the best possible outcomes. - With spine surgery and spinal fusion, there are different off label uses of instrumentation (devices, implants and hardware) as well as biological substances (bone morphogenic proteins, demineralized bone matrix) as well as using extra bone from allograft sources (i.e. cadaver bone) or autograft (iliac crest bone, ribs, or the spine itself). The patient has been given information about these practices and their inherent risks and benefits. Isaias has had a chance to review all the listed information, has been given print outs detailing this information, and has had all his questions answered to his satisfaction. It was my pleasure to have seen and examined Isaias Rodrigues. In our visit today we have had a chance to go over my understanding of our patient's current condition, the natural course history without intervention and various interventional options. Questions were invited and answered, and Isaias wishes to proceed as outlined above. I have seen and examined the patient for 25 minutes and we have spent more than 50% of the time in repeat and detailed counseling about the patient's condition, its natural course history without and as much as can be predicted with surgery and re-review of various surgical treatment options. In conclusion, Isaias and his family requested we proceed with the above suggested surgery and are willing to accept risks and limitations of the suggested surgery as the nature of the disease process and our best attempts at treatment for the condition. Attestation Attestation In our visit today, Isaias and I have had a chance to go over my understanding of his current condition, the natural course history without intervention and various interventional options. Questions were invited and answered, and Isaias wishes to proceed as outlined above. I will be sure to keep you updated after Isaias returns here for further follow- up. Thank you again for your referral. Please do not hesitate to contact me if you have any further questions. Signed and authenticated by: DO Stefanie Metz [facility] [address], [address] [address] This document is confidential, intended only for the named recipient(s) and may contain information that is privileged or exempt from disclosure under applicable law. If you are not the intended recipient(s), you are notified that the dissemination, distribution or copying of this information is strictly prohibited. If you received this message in error, please notify the sender then delete this message. Past Medical History Past Medical History: Liver Disease Additional Past Medical History / Comment(s): collapsed lung had a chest tube once - states as an , not sure why it happened, herniated disc. 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 calf - pt. will show surgeon and let PCP know History of Any Multi-Drug Resistant Organisms: None Reported Past Surgical History: No Surgical Hx Reported Additional Past Surgical History / Comment(s): wisdom teeth extraction, EGD/colonoscopy Past Anesthesia/Blood Transfusion Reactions: No Reported Reaction Smoking Status: Current every day smoker, Vaper Medications and Allergies Home Medications Medication Instructions Recorded Confirmed Type Cyclobenzaprine [Flexeril] 5 mg PO TID PRN #90 tablet 04/09/23 02/18/25 Rx Ibuprofen [Motrin Ib] 800 mg PO Q8HR PRN 02/14/25 02/18/25 History Allergies Allergy/AdvReac Type Severity Reaction Status Date / Time methylprednisolone AdvReac double Verified 02/18/25 11:49 vision Physical Examination Osteopathic Statement: *. No significant issues noted on an osteopathic structural exam other than those noted in the History and Physical/Consult.
[2025-02-18] MEDS: THROMBIN (BOVINE) 5,000 UNIT VIAL TOPICAL ONE (13:19)
--- NOTE | 2025-02-18 14:40 | P.OP ---
Date of Procedure: 02/18/25 Preoperative Diagnosis: 1. 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 C5-7 STENOSIS WITH RADICULOPATHY 3. BUE PARESTHESIAS 4. NECK PAIN Postoperative Diagnosis: 1. 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 C5-7 STENOSIS WITH RADICULOPATHY 3. BUE PARESTHESIAS 4. NECK PAIN Procedure(s) Performed: 1. C5-6 ANTERIOR CERVICAL ARTHRODESIS 2. C6-7 ANTERIOR CERVICAL ARTHRODESIS 3. C5-7 ANTERIOR INSTRUMENTATION 4. C5-6 AND C6-7 INSERTION OF BIOMECHANICAL DEVICE CAGE x2 USE OF IONM USE OF IO MICROSCOPE Implants: -NINFA CASCADIA CAGE 9 MM LARGE 7 DEG -NINFA OZARK PLATE 42 MM/16MM -MAGNATOS, AUTOGRAFT Anesthesia: GETA Surgeon: Ab García Manager Of Finance #1: Chaparro Brunner (was present and assisted with all aspects of the case from position to dressing placement) Estimated Blood Loss (ml): 20 IV fluids (ml): 1,200 Urine output (ml): 0 Pathology: none sent Condition: stable Disposition: PACU Indications for Procedure: Isaias Rodrigues presents with severe cervical spine issues, specifically spondylosis with disc collapse at C5-6 and C6-7 levels, causing shoulder, arm, and hand problems. An MRI on 09/10/24 confirmed these findings. Due to the severity and progression of symptoms, a C5 to 7 anterior cervical discectomy and fusion has been recommended. The surgery is scheduled for Friday, with an expected duration of 1.5 hours. Post-operative care includes a multimodal pain management approach, wearing a soft collar for the first couple of weeks, and a recovery period of 6-8 weeks. Given Isaias's history of substance use recovery, special consideration is being given to pain management, with a focus on minimizing opioid use. Description of Procedure: C5-7 ACDF The patient was seen and examined in the preoperative area. All preoperative protocols were followed. Informed consent was obtained, risks and benefits of the procedure were discussed at length. Risks including bleeding infection damage to the surrounding tissue and risk of reoperation were discussed with the patient. Risk of anesthesia up to and including was discussed with the patient. These are outlined in the risk review. They were willing to accept these risks and all the risks of surgery. The patient was given a weight-based dose of antibiotics in the form of 2 g Ancef. The patient was seen and evaluated by the anesthesia team who deemed them fit for surgery. The site was marked, the patient was willing to proceed with the procedure. The patient was transferred to the operative suite by the Department of anesthesia. They were then drifted off to sleep by the department anesthesia and GETA was performed. The patient tolerated this well. Veras catheter was placed by nursing staff, a-traumatically. Once confirmation of lines and ventilation the patient was transferred to a Supine Kenyon table very carefully. All bony prominences including wrists, elbows, axilla, chest, hips, and thighs, and feet were padded very well. Special attention was paid to the genitalia, and these were padded accordingly. SCDs were placed on bilateral lower extremities and were connected. Arms were well padded and placed at their side thumbs up. Once in position, again we confirmed good ventilation capabilities and that lines were running appropriately. The patients cervical spine was then exposed. 1010s were placed outlining the incision site. Standard alcohol was used to clean the incision site and allowed to dry. C-arm was used to bio-jacob the patient and confirm level for incision which was marked with a skin marker. Operative briefing was performed with all teams and everyone in agreement to proceed. The patient was then prepped and draped in a normal sterile fashion. Timeout was then performed, and all parties agreed with the procedure to be performed. Transverse skin incision was then made on the right side of the patient's neck 3 cm and dissection taken down to the platysma which was split transversely. Sub platysma flap was made, and interval identified between SCM and medial structures. Omohyoid was visualized and protected. Blunt dissection taken down to the anterior cervical fascia which was identified. Blunt probe was then placed and lateral image taken which confirmed levels for operation. These levels were then marked with a bovi. Subperiosteal dissection of the longissimus muscles were then done over these levels identifying uncovertebral joints bilaterally. The retractor was then placed deep to these muscles and held in place with a bed arm. Starting at C6-7, [place] pins were placed into C6 and C7 and gentle distraction taken out over the levels. Manpreet rongeur used to remove disc material. Operating microscope brought in for visualization. Complete discectomy performed at this level with curette, rongure and pituitary. High speed tong used to remove osteophytes anteriorly and posteriorly until PLL was identified. 6-0 up curette then used to identify the canal and resect the PLL. 2-0 and 3-0 Kerrison used then to remove PLL and disc herniation and performed b/l foraminotomies. Once good decompression was accomplished, meticulous hemostasis was performed. Sizers were then placed under lateral fluoroscopy until the desired height and lordosis. Cage was then selected, packed with autograft and allograft and placed under lateral imaging. Once in good position it was tested and stable. Motors run before and after cage placement were stable. The wound was irrigated, and autograft placed lateral to the cage anteriorly for fusion. [place] pin was then removed from C7 and placed into C5. Gentle distraction taken out over C5-6 now. Complete discectomy done at C5-6 as described including decompression, b/l foraminotomies and PLL resection. Burring of endplates was minimal, osteophytes removed as described. Spacers were then sized and placed under lateral imaging. Cage selected, packed with graft and placed under lateral images. Once in position, meticulous hemostasis performed, and motors remained stable before and after cage placement. AP image confirmed good placement of cages. The wound was irrigated. A separate, non-integrated plate was then selected and sized under lateral image. The plate was then placed with screws. Fixed screws drilled into C7 b/l and screws placed. Then into C6 and finally C5 with variable screws. All locking mechanisms were set, and all screws had good purchase. Final AP and lateral images taken confirmed good placement of hardware and good reduction and judaism of height. The wound was then irrigated copiously with NSS. Surgicel placed deep in the wound. A deep drain placed out a separate incision and secured to the skin. Layered closure then performed with 3-0 Vicryl in the platysma and subQ tissue. 4-0 Strata fix in the subcuticular tissue. The wound was then cleaned, and dried and skin glue placed. Once glue dried telfa, 4x4, tegaderms were placed. The patient was then transferred back to their hospital bed a-traumatically. The drain continued to hold suction. They were placed in a soft collar. They were then awakened by the department of anesthesia having tolerated the pro cedure well without complications.
[2025-02-18] MEDS: LACTATED RINGERS 1,000 ML IV ONE ×3 (14:47)
[2025-02-18] MEDS ORDERED: SENNOSIDES-DOCUSATE SODIUM 1 EACH TAB PO PRN (14:53)
[2025-02-18] MEDS ORDERED: HYDROcodone/APAP 5-325MG 1 EACH TAB PO PRN (14:53)
[2025-02-18] MEDS ORDERED: ONDANSETRON 4 MG/2 ML VIAL IVP PRN (14:53)
[2025-02-18] MEDS ORDERED: HYDROmorphone 0.5 MG/0.5 ML SYRINGE IVP PRN (14:53)
[2025-02-18] MEDS ORDERED: MAGNESIUM HYDROXIDE 2,400 MG/30 ML CUP PO PRN (14:53)
[2025-02-18] MEDS ORDERED: CYCLOBENZAPRINE 5 MG TAB PO PRN (14:53)
--- NOTE | 2025-02-18 14:56 | XR ---
Fluoroscopy INDICATION: Pain FINDINGS: Fluoroscopy time: 19.2 seconds. Total dose area product (DAP) in uGy*m?, mGy*cm? (or similar): 0.2900 Images obtained: 7. Images document cervical fusion IMPRESSION: 1. Documentation of fluoroscopy. [facility], , 02/18/2025 2:54 PM
--- NOTE | 2025-02-18 14:57 | FL ---
Fluoroscopy INDICATION: Pain FINDINGS: Fluoroscopy time: 19.2 seconds. Total dose area product (DAP) in uGy*m?, mGy*cm? (or similar): 0.2900 Images obtained: 5. Images document the procedure. IMPRESSION: 1. Documentation of fluoroscopy. [facility], , 02/18/2025 2:55 PM
[2025-02-18] MEDS: HYDROmorphone 0.5 MG/0.5 ML SYRINGE IVP PRN (15:15)
[2025-02-18] MEDS: DEXAMETHASONE SOD PHOSPHATE 4 MG/ML 1 ML VIAL IV ONE (15:24)
[2025-02-18] MEDS: GABAPENTIN 300 MG CAP PO SCH (15:50)
[2025-02-18] MEDS: HYDROmorphone 1 MG/ML 1 ML SYRINGE IVP PRN (15:56)
[2025-02-18] MEDS: ACETAMINOPHEN TAB 325 MG TAB PO SCH (17:12)
--- NOTE | 2025-02-18 19:49 | CT ---
EXAMINATION TYPE: CT cervical spine wo con DATE OF EXAM: 02/18/2025 5:20 PM COMPARISON: Prior CT cervical spine study 07/05/2024. CLINICAL INDICATION: Male, 34 years old with history of s/p C5-C7 ACDF; post c5-c7 fusion TECHNIQUE: Axial CT images from the skull base to the inferior aspect of T2 we obtained without intra venous contrast. Coronal and sagittal reformatted images were also reviewed. CT DLP: 278.5 mGycm, Automated exposure control for dose reduction was used. FINDINGS: Fracture: None. Osseous structures: Interval postsurgical changes of anterior cervical spine fusion spanning C5-C7 wi th C5-C6 and C6-C7 intervertebral disc spacer device is present. No evidence of periprosthetic lucenc y. Vertebral alignment: Alignment within normal limits. Spinal canal/Neural Foramina: Gas visualized within the spinal canal. No definite high-grade spinal c anal stenosis. Neck soft tissues: There is extensive subcutaneous emphysema/gas throughout the neck soft tissues. No drainable fluid collection/abscess. Other: The airway is patent. The lung apices are clear. IMPRESSION: Interval postsurgical changes of anterior fusion spanning C5-C7 without evidence of acute hardware fa ilure. Expected subcutaneous gas throughout the neck soft tissues and additional gas within the spina l canal. No drainable fluid collection/abscess. [facility], , 02/18/2025 7:47 PM
--- NOTE | 2025-02-18 23:46 | P.CONS ---
History of Present Illness - Reason for Consult Consult date: 02/18/25 - History of Present Illness 34-year-old male with history of hepatitis C and liver disease Patient coming in for scheduled cervical spine surgery tolerated procedure well no observed immediate postoperative complication denies any chest pain nausea vomiting denies any new focal neurodeficits. He does report some sharp pain that he is feeling in his right hand over the hypothenar area but no loss of function review of systems Pertinent positives as noted in HPI. All other systems were reviewed and are negative on exam Constitutional: No acute distress, conversant, pleasant Eyes: Anicteric sclerae, moist conjunctiva, Pupils equal round reactive to light ENMT: NC/AT Oropharynx clear, no erythema, or exudates Neck: Neck collar in place Lungs: Clear to auscultation Clear to percussion Normal respiratory effort, no accessory muscle use Cardiovascular: Heart regular in rate and rhythm, No murmurs, gallops, or rubs No peripheral edema Abdominal: Soft Nontender, no guarding, rebound or rigidity Abdomen moving with respiration Normoactive bowel sounds Extremities: No digital cyanosis No clubbing Pedal pulses intact and symmetrical Radial pulses intact and symmetrical No calf tenderness Psychiatric: Alert and oriented to person, place and time Neuro Muscles Strength 5/5 in all 4 extremities Sensation to light touch grossly present throughout Cranial nerves II-XII grossly intact Past Medical History Past Medical History: Liver Disease Additional Past Medical History / Comment(s): collapsed lung had a chest tube once - states as an infant, not sure why it happened, herniated disc. 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 calf - pt. will show surgeon and let PCP know History of Any Multi-Drug Resistant Organisms: None Reported Past Surgical History: No Surgical Hx Reported Additional Past Surgical History / Comment(s): wisdom teeth extraction, EGD/colonoscopy Past Anesthesia/Blood Transfusion Reactions: No Reported Reaction Past Psychological History: Anxiety, Bipolar, Depression Additional Psychological History / Comment(s): Pt. states not currently on any meds and would like a second opinion to get accurate diagnosis. Smoking Status: Current every day smoker, Vaper Past Alcohol Use History: Abuse Additional Past Alcohol Use History / Comment(s): smokes occasional cigarettes(1-2 x/mo.) and vapes daily now, smoked cigarettes 1 ppd x 14. no alcohol since 2022 Past Drug Use History: Heroin, IV Drug Use, Marijuana, Opiates, Prescription Drug Abuse Additional Drug Use History / Comment(s): No drug use since 2022 Medications and Allergies Home Medications Medication Instructions Recorded Confirmed Type Cyclobenzaprine [Flexeril] 5 mg PO TID PRN #90 tablet 04/09/23 02/18/25 Rx Ibuprofen [Motrin Ib] 800 mg PO Q8HR PRN 02/14/25 02/18/25 History Allergies Allergy/AdvReac Type Severity Reaction Status Date / Time methylprednisolone AdvReac double Verified 02/18/25 11:49 vision Physical Exam Vitals: Vital Signs Temp Pulse Resp BP Pulse Ox 02/18/25 17:24 74 116/75 90 L 02/18/25 16:55 79 118/74 87 L 02/18/25 16:40 66 111/80 89 L 02/18/25 16:25 63 115/69 93 L 02/18/25 16:10 65 112/69 88 L 02/18/25 15:54 65 133/85 100 02/18/25 15:40 75 127/73 99 02/18/25 15:30 80 12 116/72 97 02/18/25 15:15 70 12 110/60 97 02/18/25 14:55 97 F L 57 L 12 114/72 100 02/18/25 11:49 97.4 F L 68 18 111/65 100 Intake and Output 02/18/25 02/18/25 02/18/25 06:59 14:59 22:59 Intake Total 1350 Output Total 20 Balance 1330 Intake: IV 1350 Output: Estimated Blood Loss 20 Other: # Voids 1 Weight 67.8 kg 67.8 kg Assessment and Plan Assessment: Cervical spine discectomy and fusion postoperative day 0 Tolerated procedure well Pain control and DVT prophylaxis per primary surgical team Continue with neurochecks DVT prophylaxis with SCDs Check CBC and CMP in the morning Patient stable from medical standpoint Thank you for this consultation
[2025-02-19 09:27] LABS: Basophils # (A) 0.02 X 10*3/uL (0.00-0.10); Basophils % (A) 0.2 %; Eosinophils # (A) 0 X 10*3/uL (0.04-0.35); Eosinophils % (A) 0 %; Lymphocytes # (A) 0.71 X 10*3/uL (0.90-5.00); Lymphocytes % (A) 5.9 %; MCHC 34.2 g/dL (32.0-37.0); MCV 90.7 FL (80.0-97.0); Mean Platelet Volume 9.9 FL (9.5-12.2); Monocytes # (A) 0.83 X 10*3/uL (0.20-1.00); Monocytes % (A) 6.9 %; NRBC Per 100 WBC 0 X 10*3/uL (0.00-0.01); Neutrophils # (A) 10.42 X 10*3/uL (1.80-7.70); Neutrophils % (A) 86.5 %; Platelet Count 240 X 10*3/uL (140-440); RBC 4.19 X 10*6/uL (4.40-5.60); RDW 12.3 % (11.5-14.5); WBC 12.04 X 10*3/uL (4.50-10.00)
[2025-02-19 09:36] LABS: BUN/Creat Ratio 10.67 Ratio (12.00-20.00); Blood Urea Nitrogen 9.6 mg/dL (9.0-27.0); Carbon Dioxide 22.6 mmol/L (21.6-31.8); Chloride 102 mmol/L (96-109); Glucose 131 mg/dL (70-110); Potassium 4.1 mmol/L (3.5-5.5); Sodium 138 mmol/L (135-145)
[2025-02-19] MEDS: PANTOPRAZOLE 40 MG TABLET PO SCH (10:42)
--- NOTE | 2025-02-19 11:42 | P.PN ---
Subjective Progress Note Date: 02/19/25 Principal diagnosis: 1. 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 C5-7 STENOSIS WITH RADICULOPATHY 3. BUE PARESTHESIAS 4. NECK PAIN Patient was seen at bedside this morning sitting up in chair on 4 S. with soft c-collar in place and postoperative surgical dressing in place over the anterior cervical spine. Patient says he is having some pain in the shoulder blades at this time as well as some difficulty swallowing. Patient states he is having sharp pain in the right fifth digit and he was not having these symptoms prior to surgery yesterday. Patient says he has been up walking several times under his own power since surgery yesterday without issue. Patient states he has urinated since surgery without any issue. Patient states no bowel movement yet, however he says he has been passing gas. Patient hoping to stay 1 more night for additional pain control. Objective - Vital Signs Vital signs: Vital Signs Temp 98.5 F 02/19/25 07:29 Pulse 81 02/19/25 07:29 Resp 18 02/19/25 07:29 BP 106/68 02/19/25 07:29 Pulse Ox 97 02/19/25 07:29 FiO2 Intake & Output 02/18/25 02/19/25 02/19/25 18:59 06:59 18:59 Intake Total 1350 Output Total 20 Balance 1330 Weight 67.8 kg Intake: IV 1350 Output: Estimated Blood Loss 20 Other: Voiding Method Toilet Toilet # Voids 1 3 - Exam Incision appears to be healing well. Negative for any drainage. Postop dressing in place holding well. Soft c-collar in place. Patient does have somewhat altered sensation down the right upper extremity along dermatomes of C5-C7. Sensation is equal, symmetric, bilaterally intact throughout the rest of the upper extremities and lower extremities on exam. There is some moderate tenderness to palpation near incision. Nontender throughout rest of exam. Patient does have similar range of motion of bilateral shoulder secondary to for stiffness and pain in the upper back/lower cervical spine. Patient does have full range of motion throughout elbows and wrists bilaterally in flexion/tension. 4/5 in all major motor groups in bilateral upper extremities. Radial pulse intact, 2+ bilaterally. Cap refill under 3 seconds in digits of upper extremities. Negative Priscilla bilaterally. Negative clonus bilaterally. Negative Homans bilaterally. - Labs CBC & Chem 7: 02/19/25 03:41 02/19/25 03:41 Labs: Abnormal Lab Results - Last 24 Hours (Table) 02/19/25 02/19/25 Range/Units 03:41 03:41 WBC 12.04 H (4.50-10.00) X 10*3/uL RBC 4.19 L (4.40-5.60) X 10*6/uL Hct 38.0 L (39.6-50.0) % Immature Gran # 0.06 H (0.00-0.04) X 10*3/uL Neutrophils # 10.42 H (1.80-7.70) X 10*3/uL Lymphocytes # 0.71 L (0.90-5.00) X 10*3/uL Eosinophils # 0 L (0.04-0.35) X 10*3/uL Anion Gap 13.40 H (4.00-12.00) mmol/L BUN/Creatinine Ratio 10.67 L (12.00-20.00) Ratio Glucose 131 H (70-110) mg/dL Assessment and Plan Assessment: 1. 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 C5-7 STENOSIS WITH RADICULOPATHY 3. BUE PARESTHESIAS 4. NECK PAIN - Postop day 1 status post C5-C7 ACDF Plan: 1. 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 soft c-collar in place. Surgical dressing in place over anterior ce rvical spine. Clean dry and intact. Changes as needed. pain medication as needed. Plan for discharge home tomorrow. 2. Appreciate medical management 3. Pain management -[place]; gabapentin 4. DVT prophylaxis - mechanical 5. GI prophylaxis - senna 6. PT/OT -soft c-collar on at all times. WBAT 7. Encourage incentive spirometer use 8. Discharge planning -plan for home tomorrow with home care Time with Patient: Less than 30
--- NOTE | 2025-02-19 14:23 | P.PN ---
Subjective Progress Note Date: 02/19/25 Patient's only new complaint today is heartburn. Otherwise feels a baseline condition. Gen: In NAD, non-toxic HEENT: normocephalic, atraumatic, hearing acuity is intant, mucous membranes moist CVS: perfusing all extremities well, no pitting edema, Respiratory: symmetric chest expansion, no accessory muscle use, GI: soft, NTTP, ND, : no suprapubic tenderness, no CVA tenderness MSK/Derm: no rashes, cyanosis Neuro: CN II-XII intact, no motor weakness, Psych: cooperative, euthymic mood, judgment and insight is intact Assessment/plan: Cervical spine discectomy and fusion postoperative day 1 Tolerated procedure well Pain control and DVT prophylaxis per primary surgical team Continue with neurochecks DVT prophylaxis with SCDs GERD without esophagitis - Tums as needed - Protonix daily Check CBC and CMP in the morning Patient stable from medical standpoint Thank you for this consultation Objective - Vital Signs Vital signs: Vital Signs Temp 98.5 F 02/19/25 07:29 Pulse 81 02/19/25 07:29 Resp 18 02/19/25 07:29 BP 106/68 02/19/25 07:29 Pulse Ox 97 02/19/25 07:29 FiO2 Intake & Output 02/18/25 02/19/25 02/19/25 18:59 06:59 18:59 Intake Total 1350 Output Total 20 Balance 1330 Weight 67.8 kg Intake: IV 1350 Output: Estimated Blood Loss 20 Other: Voiding Method Toilet Toilet # Voids 1 3 - Labs CBC & Chem 7: 02/19/25 03:41 02/19/25 03:41 Labs: Abnormal Lab Results - Last 24 Hours (Table) 02/19/25 02/19/25 Range/Units 03:41 03:41 WBC 12.04 H (4.50-10.00) X 10*3/uL RBC 4.19 L (4.40-5.60) X 10*6/uL Hct 38.0 L (39.6-50.0) % Immature Gran # 0.06 H (0.00-0.04) X 10*3/uL Neutrophils # 10.42 H (1.80-7.70) X 10*3/uL Lymphocytes # 0.71 L (0.90-5.00) X 10*3/uL Eosinophils # 0 L (0.04-0.35) X 10*3/uL Anion Gap 13.40 H (4.00-12.00) mmol/L BUN/Creatinine Ratio 10.67 L (12.00-20.00) Ratio Glucose 131 H (70-110) mg/dL
[2025-02-19] MEDS: HYDROcodone/APAP 10-325MG 1 EACH TAB PO PRN (14:27)
[2025-02-19] MEDS: CALCIUM CARBONATE 500 MG CHEWABLE PO PRN (14:27)
[2025-02-19] MEDS: hydrOXYzine HCL 25 MG TAB PO SCH (16:47)
[2025-02-20] MEDS: oxyCODONE-APAP 7.5-325MG 1 EACH TAB PO PRN (08:11)
[2025-02-20] MEDS ORDERED: HYDROcodone/APAP 10-325MG 1 EACH TAB PO PRN (08:17)
[2025-02-20] MEDS ORDERED: oxyCODONE-APAP 7.5-325MG 1 EACH TAB PO PRN (08:18)
[2025-02-20] MEDS: HYDROmorphone 0.5 MG/0.5 ML SYRINGE IVP PRN (10:31)
[2025-02-20] MEDS: oxyCODONE-APAP 7.5-325MG 1 EACH TAB PO SCH (12:36)
--- NOTE | 2025-02-20 13:31 | P.PN ---
Subjective Progress Note Date: 02/20/25 Pt c/o uncontrolled pain when transitioning to orals. Requiring high amount of IV dilaudid. Recommend pain consultation. Gen: In NAD, non-toxic HEENT: normocephalic, atraumatic, hearing acuity is intant, mucous membranes moist CVS: perfusing all extremities well, no pitting edema, Respiratory: symmetric chest expansion, no accessory muscle use, GI: soft, NTTP, ND, : no suprapubic tenderness, no CVA tenderness MSK/Derm: no rashes, cyanosis Neuro: CN II-XII intact, no motor weakness, Psych: cooperative, euthymic mood, judgment and insight is intact Assessment/plan: Cervical spine discectomy and fusion postoperative day 1 Tolerated procedure well Pain control and DVT prophylaxis per primary surgical team Continue with neurochecks DVT prophylaxis with SCDs GERD without esophagitis - Tums as needed - Protonix daily Check CBC and CMP in the morning Patient stable from medical standpoint Thank you for this consultation Objective - Vital Signs Vital signs: Vital Signs Temp 98.3 F 02/20/25 07:30 Pulse 57 L 02/20/25 07:30 Resp 18 02/20/25 07:30 BP 111/69 02/20/25 07:30 Pulse Ox 97 02/20/25 07:30 FiO2 Intake & Output 02/19/25 02/20/25 02/20/25 18:59 06:59 18:59 Other: Voiding Method Toilet Toilet Toilet # Voids 3 2 - Labs CBC & Chem 7: 02/19/25 03:41 02/19/25 03:41
--- NOTE | 2025-02-20 14:17 | P.PN ---
Subjective Progress Note Date: 02/20/25 Principal diagnosis: 1. 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 C5-7 STENOSIS WITH RADICULOPATHY 3. BUE PARESTHESIAS 4. NECK PAIN Patient was seen at bedside this morning sitting up in chair on 4 S. with soft c-collar in place and postoperative surgical dressing in place over the anterior cervical spine. Patient says he is having some pain in the shoulder blades at this time. Patient says he has better appetite today but still feels lump in throat when swallowing. Patient states he is having sharp pain in the right fifth digit and he was not having these symptoms prior to surgery. Patient says he has been up walking several times under his own power since surgery yesterday without issue. Patient states he has urinated since surgery without any issue. Patient states no bowel movement yet, however he says he has been passing gas. Patient hoping to stay 1 more night for additional pain control. Objective - Vital Signs Vital signs: Vital Signs Temp 98.3 F 02/20/25 07:30 Pulse 57 L 02/20/25 07:30 Resp 18 02/20/25 07:30 BP 111/69 02/20/25 07:30 Pulse Ox 97 02/20/25 07:30 FiO2 Intake & Output 02/19/25 02/20/25 02/20/25 18:59 06:59 18:59 Other: Voiding Method Toilet Toilet Toilet # Voids 3 2 - Exam Incision appears to be healing well. Negative for any drainage. Postop dressing in place holding well. Soft c-collar in place. Patient does have somewhat altered sensation down the right upper extremity along dermatomes of C5-C7. Sensation is equal, symmetric, bilaterally intact throughout the rest of the upper extremities and lower extremities on exam. There is some moderate tenderness to palpation near incision. Nontender throughout rest of exam. Patient does have similar range of motion of bilateral shoulder secondary to for stiffness and pain in the upper back/lower cervical spine. Patient does have full range of motion throughout elbows and wrists bilaterally in flexion/tension. 4/5 in all major motor groups in bilateral upper extremities. Radial pulse intact, 2+ bilaterally. Cap refill under 3 seconds in digits of upper extremities. Negative Priscilla bilaterally. Negative clonus bilaterally. Negative Homans bilaterally. - Labs CBC & Chem 7: 02/19/25 03:41 02/19/25 03:41 Assessment and Plan Assessment: 1. 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 C5-7 STENOSIS WITH RADICULOPATHY 3. BUE PARESTHESIAS 4. NECK PAIN - Postop day 2 status post C5-C7 ACDF Plan: 1. 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 soft c-collar in place. Surgical dressing in place over anterior cervical spine. Clean dry and intact. Changes as needed. pain medication as needed. Plan for discharge home tomorrow. 2. Appreciate medical management 3. Pain management -Percocet; gabapentin 4. DVT prophylaxis - mechanical 5. GI prophylaxis - senna 6. PT/OT -soft c-collar on at all times. WBAT 7. Encourage incentive spirometer use 8. Discharge planning -plan for home tomorrow with home care Time with Patient: Less than 30
[2025-02-20 14:24] VITALS: RESP 17
[2025-02-20] MEDS: hydrOXYzine HCL 25 MG TAB PO SCH (14:50)
[2025-02-21] MEDS: HYDROmorphone 0.5 MG/0.5 ML SYRINGE IVP PRN (01:57)
[2025-02-21 07:59] VITALS: BP 115/77; PULSE 68; TEMP 98.5
--- NOTE | 2025-02-21 09:38 | P.DS ---
Providers Date of admission: 02/18/2025 Expected date of discharge: 02/21/25 Attending physician: Ab García DO Consults: 02/18/25 14:53 Consult Physician Routine Consulting Provider: Aki Dobson Consult Reason/Comments: medical management s/p C5-C7 ACDF Do you want consulting provider notified?: Yes Primary care physician: Cullen Contreras MD Hospital Course: Date of admission: 02/18/2025 Date of discharge: 02/21/2025 Admission diagnosis: 1. 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 C5-7 STENOSIS WITH RADICULOPATHY 3. BUE PARESTHESIAS 4. NECK PAIN Discharge diagnosis: Same Attending physician: Dr. García Surgical procedures: C5-C7 anterior cervical discectomy and fusion Brief history: Patient is a 34-year-old male with a history of C5-7 spondylosis with radiculopathy and stenosis; bilateral upper extremity paresthesias; neck pain. At this point patient has failed conservative treatment measures and has opted to proceed with a elective C5-C7 ACDF. Hospital course: Details of patient's surgery can be found in operative report. Patient tolerated the procedure well and was subsequently transported to orthopedic floor. Patient's orthopeidc and medical care was provided daily. Patient had daily laboratory tests performed for evaluation of overall blood counts. Patient had daily physical therapy to include strengthening range of motion as well as education with walker ambulation. Patient was noted to have a relatively uneventful postoperative course. Patient reported satisfactory pain control with oral pain medications by postoperative day 3. Patient showed satisfactory progress with physical therapy. Patient moved steadily through the program and had no difficulty meeting the goals by postoperative day 3. Given patient's otherwise satisfactory course and having met physical therapy goals, plan is to discharge patient home on postoperative day 3. Discharge condition/disposition: Patient will be discharged home in stable condi tion. Discharge medications: Instructions are given on resumption of patient's normal daily medications per primary care recommendation, in addition patient will be prescribed Percocet; senna; Vistaril; gabapentin; Duricef. Spine Discharge and Recovery Instructions Date of Surgery: 02/18/2025 Diagnosis: 1. 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 C5-7 STENOSIS WITH RADICULOPATHY 3. BUE PARESTHESIAS 4. NECK PAIN Procedure: C5-C7 ACDF Medications: See medication list All medication refills should be obtained through your primary care doctor or your clinic spine surgeon. Please discuss prescription refills at your follow up appointment. Do not call the hospital for medication refills. Dressing: Leave your dressing in place for a total of 5 days post operatively. Then you may remove your dressing and leave open to air. Keep the area clean and if not able to keep area clean, then cover with sterile gauze and tape. Showering: You may shower 3 days after your procedure allowing soap and water to run over incision. Do not scrub. Do not soak. Blot dry. Follow up: Please confirm a follow up appointment with your surgeon 3 weeks post operatively. Please make an appointment to follow up with your PCP in 1-2 weeks after surgery for evaluation '3 phase, 3-week plan' POST OP WEEKS 1-3 1. Lifting/carrying/pushing/pulling limited to less than 5 pounds. 2. Do not sit for longer than 15 minutes at one time. Get up and walk around. Prolonged sitting is NOT advised. If you lay down, see if you can tolerate laying down on you front (belly side) 3. Walk for periods of 15 minutes = 1 mile but no longer; do it multiple times times each day. 4. Ice your low back after activity. POST OP WEEKS 3-6 1. Lifting limited to less than 20 pounds. 2. Do not sit for longer than 30 minutes at a time. Frequently change positions. Use a sit-to stand workstation or take frequent breaks from sitting if you have returned to work. 3. Walk for 30 minutes each day. If possible, do these three or more times a day POST OP WEEKS 6+ At your 6-week appointment we will give you a physical therapy referral to focus on a core stabilization and strengthening program. You should also work on leg & buttock strengthening, hamstring & quadriceps stretching, and continue a low impact aerobic activity program such as swimming, walking, or riding a stationary bicycle. During the initial 6 weeks after your surgery, you are at the highest risk of re-injuring your spine. You should generally avoid BLT's (bending, lifting and twisting combination motions) and follow the above guidelines to reduce the chance of reinjury. You can anticipate post op appointments in our office at approximately 3 weeks and 6 weeks after your surgery. INCISION CARE: If your incision is not draining you do NOT need to cover it with a dressing. Keep your incision clean, dry and intact. In most cases, we apply skin glue, richard or sutures to the incision at the time of surgery. This will be like a crust or have the appearance of a scab and will fall off in time on its own. The stitches or richard need to be removed at 3 weeks post op appointment. You may begin to shower 3 days after surgery (this allows the glue to ramírez well). However, please avoid scrubbing the incision site or peeling off any of the skin glue. This will ensure optimal healing of your incision. Also, during this time avoid soaking the incision area in water - this includes swimming pools, hot tubs or baths. No ointments, lotions or oils on the incision until your surgeon allows. Leave richard, sutures or glue in place. Neurological dysfunction that comes on suddenly can also be a sign of a stroke. Below some common symptoms of a stroke are listed: B - balance difficulty such as sudden onset walking or leaning to one side - NEW E - eye problem such as sudden double vision or trouble seeing on one side - NEW F - Facial weakness or numbness on one side - NEW A - Arm or leg weakness or numbness on one side - NEW S - Slurred speech or difficulty with word finding - NEW T - Time is BRAIN! Call 911 as soon as you recognize these symptoms Diet: Consume a regular diet rich in vegetables and lean protein such as chicken or fish. You should consume in a ratio of approximately 20% fats|40% carbohydrates|40%protein. Vegetables, sweet potatoes, brown rice or quinoa are examples of good carbohydrates. Chips, white bread, cookies and sweets/sugar are examples of bad carbohydrates. Limit your bad carbs, go wild with good carbs. "Life's Simple 7" Guidelines as per [place] [employer] These will help you reclaim your life after surgery and cut off machine helper in your recovery, keeping in mind your restrictions. (1) Get Active. Physical activity can help people lose weight, control high blood pressure and cholesterol, feel emotionally better, and sleep better. (2) Control Cholesterol. Avoid a diet high in saturated fat, trans fat, & cholesterol. Limit whole milk & cream, ice cream, butter, egg yolks, processed meats (like sausage and hot dogs), and fatty meats. Choose healthy foods that are low in saturated fat, trans fat and cholesterol which include: Fruits and vegetables, fiber rich grain products (like whole grain pasta and brown rice), lean meat such as chicken, fish, nuts, seeds, and legumes. (3) Eat Better. Eat small portions. Shop at the grocery with a list and do not stray from it. Tips for a healthy diet include: Limit sodium intake to less than 1500mg daily, avoid prepackaged, processed, and fast foods, choose a diet rich in fruits, vegetables, and whole grain, high fiber foods, and limit saturated & cholesterol in your diet. (4) Manage Blood Pressure. If you have high blood pressure, you should have a cuff at home so that you can check your blood pressure regularly. Be sure you have a good cuff. An arm one is generally better than a wrist one. Bring the cuff to a doctor's appointment to validate that the measurements that your cuff are taking are accurate. Take your blood pressure twice daily when you are sitting down and relaxing. Record the numbers in a log and bring this log with you to your doctors' appointments. (5) Lose Weight if your BMI is above 25. A healthy BMI is between 19-25. To calculate Your BMI, you may use a Standard BMI Calculator on the NIH BMI website: <www.nhlbi.nih.gov/guidelines/obesity/BMI/bmicalc.htm>. Weigh oneself daily. If you are overweight, set a goal to lose weight. A pound a week loss if needed is a good target. (6) Reduce Blood Sugar. Limit foods and liquids with "added sugars." (Added sugars include sucrose, fructose, glucose, maltose, dextrose, high fructose corn syrup, corn syrup, concentrated fruit juice and honey). (7) Stop Smoking. If you smoke, quitting smoking is one of the best things that you can do for your health. Smoking increases your risk of heart attack, stroke, and peripheral vascular disease, which is a build-up of plaque in your arteries. Please discard all the cigarettes and lighters in your house. Have a plan for what you will do when you have the urge to smoke. Direct and second- hand smoke shortens your life as well as the lives of your family, friends and others around you. For your health and the health of those around you, please consider quitting! Proper Bending Body Mechanics: Maintain a wide stance with one foot slightly in front of the other. Keep your back straight. Bend utilizing the strength in your hips and knees. Do not bend at the waist. Maintain the lifted object at your waist-level close to your body. Avoid lifting weight that causes immediately pain or pain anywhere in the body afterwards. Smoking/Nicotine If there was ever one thing that you could do to increase your overall health, decrease your risk of cardiovascular problems by about 39% the second you make the choice, it is to STOP SMOKING. Your body's most instant gratification is the second you stop smoking. We have all heard the studies, read the articles but it is true, smoking is extremely bad for your overall health, and moreover it is detrimental to your bone health. Nicotine, IN ANY FORM, kills bone cells, prevents your body from healing fractures, and significantly prolongs healing after surgery. In spine surgery specifically, it increases your risk of not healing your bones to create a fusion and increases your risk of having a revision surgery due to this up to 60%. I know it is hard. I know it feels impossible. But there are ways. Take contro l of your life. We are here to help you through it. And when you are ready, ask us and we can direct you to help if you desire. Use the START Plan to Quit Smoking (please visit the Helpguide.org website listed below for more information): S = Set a quit date. Choose a date within the next 2 weeks, so you have enough time to prepare without losing your motivation to quit. If you mainly smoke at work, quit on the weekend, so you have a few days to adjust to the change. T = Tell family, friends, and co-workers that you plan to quit. Let your friends and family in on your plan to quit smoking and tell them you need their support and encouragement to stop. Look for a quit arabella who wants to stop smoking as well. You can help each other get through the rough times. A = Anticipate and plan for the challenges you'll face while quitting. Most people who begin smoking again do so within the first 3 months. You can help yourself make it through by preparing ahead for common challenges, such as nicotine withdrawal and cigarette cravings. R = Remove cigarettes and other tobacco products from your home, car, and work. Throw away all your cigarettes (no emergency pack!), lighters, ashtrays, and matches. Wash your clothes and freshen up anything that smells like smoke. Shampoo your car, clean your drapes and carpet, and steam your furniture. T = Talk to your doctor about getting help to quit. Your doctor can prescribe medication to help with withdrawal and suggest other alternatives. If you can't see a doctor, you can get many products over the cou nter at your local pharmacy or grocery store, including the nicotine patch, nicotine lozenges, and nicotine gum. Resources for Quitting Smoking: <https://www.[place].gov/documents/[facility]/Quit_To bacco_Resources_for_patients_313480_7.pdf> Supplementation: Take recommended dosages of Vitamin D and Calcium to help fortify your bones and help them to heal. See your health maintenance packet for dosages and recommended levels. DVT/VTE prophylaxis: You will be given compression stockings from the hospital. Wear these daily for the first two weeks after surgery. You may take them off at night. You may be prescribed a medication to help thin your blood. Take this as directed. If you are not prescribed this medication, early and frequent ambulation has been shown to be the best prophylaxis to deep vein thrombosis and sequelae related to this event. Assessment: 1. 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 C5-7 STENOSIS WITH RADICULOPATHY 3. BUE PARESTHESIAS 4. NECK PAIN Patient Condition at Discharge: Good Plan - Discharge Summary Discharge Rx Participant: Yes New Discharge Prescriptions: No Action Ibuprofen [Motrin Ib] 800 mg PO Q8HR PRN PRN Reason: Fever And/ Or Pain Discharge Medication List Ibuprofen [Motrin Ib] 800 mg PO Q8HR PRN 02/14/25 [History] Follow up Appointment(s)/Referral(s): Ab García DO [Doctor of Osteopathic Medicine] - 2 Weeks Activity/Diet/Wound Care/Special Instructions: Spine Discharge and Recovery Instructions Date of Surgery: 02/18/2025 Diagnosis: 1. 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 C5-7 STENOSIS WITH RADICULOPATHY 3. BUE PARESTHESIAS 4. NECK PAIN Procedure: C5-C7 ACDF Medications: See medication list All medication refills should be obtained through your primary care doctor or your clinic spine surgeon. Please discuss prescription refills at your follow up appointment. Do not call the hospital for medication refills. Dressing: Leave your dressing in place for a total of 5 days post operatively. Then you may remove your dressing and leave open to air. Keep the area clean and if not able to keep area clean, then cover with sterile gauze and tape. Showering: You may shower 3 days after your procedure allowing soap and water to run over incision. Do not scrub. Do not soak. Blot dry. Follow up: Please confirm a follow up appointment with your surgeon 3 weeks post operatively. Please make an appointment to follow up with your PCP in 1-2 weeks after surgery for evaluation '3 phase, 3-week plan' POST OP WEEKS 1-3 1. Lifting/carrying/pushing/pulling limited to less than 5 pounds. 2. Do not sit for longer than 15 minutes at one time. Get up and walk around. Prolonged sitting is NOT advised. If you lay down, see if you can tolerate laying down on you front (belly side) 3. Walk for periods of 15 minutes = 1 mile but no longer; do it multiple times times each day. 4. Ice your low back after activity. POST OP WEEKS 3-6 1. Lifting limited to less than 20 pounds. 2. Do not sit for longer than 30 minutes at a time. Frequently change positions. Use a sit-to stand workstation or take frequent breaks from sitting if you have returned to work. 3. Walk for 30 minutes each day. If possible, do these three or more times a day POST OP WEEKS 6+ At your 6-week appointment we will give you a physical therapy referral to focus on a core stabilization and strengthening program. You should also work on leg & buttock strengthening, hamstring & quadriceps stretching, and continue a low impact aerobic activity program such as swimming, walking, or riding a stationary bicycle. During the initial 6 weeks after your surgery, you are at the highest risk of re-injuring your spine. You should generally avoid BLT's (bending, lifting and twisting combination motions) and follow the above guidelines to reduce the chance of reinjury. You can anticipate post op appointments in our office at approximately 3 weeks and 6 weeks after your surgery. INCISION CARE: If your incision is not draining you do NOT need to cover it with a dressing. Keep your incision clean, dry and intact. In most cases, we apply skin glue, richard or sutures to the incision at the time of surgery. This will be like a crust or have the appearance of a scab and will fall off in time on its own. The stitches or richard need to be removed at 3 weeks post op appointment. You may begin to shower 3 days after surgery (this allows the glue to ramírez well). However, please avoid scrubbing the incision site or peeling off any of the skin glue. This will ensure optimal healing of your incision. Also, during this time avoid soaking the incision area in water - this includes swimming pools, hot tubs or baths. No ointments, lotions or oils on the incision until your surgeon allows. Leave richard, sutures or glue in place. Neurological dysfunction that comes on suddenly can also be a sign of a stroke. Below some common symptoms of a stroke are listed: B - balance difficulty such as sudden onset walking or leaning to one side - NEW E - eye problem such as sudden double vision or trouble seeing on one side - NEW F - Facial weakness or numbness on one side - NEW A - Arm or leg weakness or numbness on one side - NEW S - Slurred speech or difficulty with word finding - NEW T - Time is BRAIN! Call 911 as soon as you recognize these symptoms Diet: Consume a regular diet rich in vegetables and lean protein such as chicken or fish. You should consume in a ratio of approximately 20% fats|40% carbohydrates|40%protein. Vegetables, sweet potatoes, brown rice or quinoa are examples of good carbohydrates. Chips, white bread, cookies and sweets/sugar are examples of bad carbohydrates. Limit your bad carbs, go wild with good carbs. "Life's Simple 7" Guidelines as per [place] [employer] These will help you reclaim your life after surgery and cut off machine helper in your recovery, keeping in mind your restrictions. (1) Get Active. Physical activity can help people lose weight, control high blood pressure and cholesterol, feel emotionally better, and sleep better. (2) Control Cholesterol. Avoid a diet high in saturated fat, trans fat, & cholesterol. Limit whole milk & cream, ice cream, butter, egg yolks, processed meats (like sausage and hot dogs), and fatty meats. Choose healthy foods that are low in saturated fat, trans fat and cholesterol which include: Fruits and vegetables, fiber rich grain products (like whole grain pasta and brown rice), lean meat such as chicken, fish, nuts, seeds, and legumes. (3) Eat Better. Eat small portions. Shop at the grocery with a list and do not stray from it. Tips for a healthy diet include: Limit sodium intake to less than 1500mg daily, avoid prepackaged, processed, and fast foods, choose a diet rich in fruits, vegetables, and whole grain, high fiber foods, and limit saturated & cholesterol in your diet. (4) Manage Blood Pressure. If you have high blood pressure, you should have a cuff at home so that you can check your blood pressure regularly. Be sure you have a good cuff. An arm one is generally better than a wrist one. Bring the cuff to a doctor's appointment to validate that the measurements that your cuff are taking are accurate. Take your blood pressure twice daily when you are sitting down and relaxing. Record the numbers in a log and bring this log with you to your doctors' appointments. (5) Lose Weight if your BMI is above 25. A healthy BMI is between 19-25. To calculate Your BMI, you may use a Standard BMI Calculator on the NIH BMI website: <www.nhlbi.nih.gov/guidelines/obesity/BMI/bmicalc.htm>. Weigh oneself daily. If you are overweight, set a goal to lose weight. A pound a week loss if needed is a good target. (6) Reduce Blood Sugar. Limit foods and liquids with "added sugars." (Added sugars include sucrose, fructose, glucose, maltose, dextrose, high fructose corn syrup, corn syrup, concentrated fruit juice and honey). (7) Stop Smoking. If you smoke, quitting smoking is one of the best things that you can do for your health. Smoking increases your risk of heart attack, stroke, and peripheral vascular disease, which is a build-up of plaque in your arteries. Please discard all the cigarettes and lighters in your house. Have a plan for what you will do when you have the urge to smoke. Direct and second- hand smoke shortens your life as well as the lives of your family, friends and others around you. For your health and the health of those around you, please consider quitting! Proper Bending Body Mechanics: Maintain a wide stance with one foot slightly in front of the other. Keep your back straight. Bend utilizing the strength in your hips and knees. Do not bend at the waist. Maintain the lifted object at your waist-level close to your body. Avoid lifting weight that causes immediately pain or pain anywhere in the body afterwards. Smoking/Nicotine If there was ever one thing that you could do to increase your overall health, decrease your risk of cardiovascular problems by about 39% the second you make the choice, it is to STOP SMOKING. Your body's most instant gratification is the second you stop smoking. We have all heard the studies, read the articles but it is true, smoking is extremely bad for your overall health, and moreover it is detrimental to your bone health. Nicotine, IN ANY FORM, kills bone cells, prevents your body from healing fractures, and significantly prolongs healing after surgery. In spine surgery specifically, it increases your risk of not healing your bones to create a fusion and increases your risk of having a revision surgery due to this up to 60%. I know it is hard. I know it feels impossible. But there are ways. Take control of your life. We are here to help you through it. And when you are ready, ask us and we can direct you to help if you desire. Use the START Plan to Quit Smoking (please visit the Helpguide.org website listed below for more information): S = Set a quit date. Choose a date within the next 2 weeks, so you have enough time to prepare without losing your motivation to quit. If you mainly smoke at work, quit on the weekend, so you have a few days to adjust to the change. T = Tell family, friends, and co-workers that you plan to quit. Let your friends and family in on your plan to quit smoking and tell them you need their support and encouragement to stop. Look for a quit arabella who wants to stop smoking as well. You can help each other get through the rough times. A = Anticipate and plan for the challenges you'll face while quitting. Most people who begin smoking again do so within the first 3 months. You can help yourself make it through by preparing ahead for common challenges, such as nicotine withdrawal and cigarette cravings. R = Remove cigarettes and other tobacco products from your home, car, and work. Throw away all your cigarettes (no emergency pack!), lighters, ashtrays, and matches. Wash your clothes and freshen up anything that smells like smoke. Shampoo your car, clean your drapes and carpet, and steam your furniture. T = Talk to your doctor about getting help to quit. Your doctor can prescribe medication to help with withdrawal and suggest other alternatives. If you can't see a doctor, you can get many products over the counter at your local pharmacy or grocery store, including the nicotine patch, nicotine lozenges, and nicotine gum. Resources for Quitting Smoking: <https://www.[place]. gov/documents/[facility]/Quit_Tobacco_Resources_for_patients_313480_7.pdf> Supplementation: Take recommended dosages of Vitamin D and Calcium to help fortify your bones and help them to heal. See your health maintenance packet for dosages and recommended levels. DVT/VTE prophylaxis: You will be given compression stockings from the hospital. Wear these daily for the first two weeks after surgery. You may take them off at night. You may be prescribed a medication to help thin your blood. Take this as directed. If you are not prescribed this medication, early and frequent ambulation has been shown to be the best prophylaxis to deep vein thrombosis and sequelae related to this event. Discharge Disposition: HOME SELF-CARE
--- NOTE | 2025-02-21 09:40 | P.PN ---
Subjective Progress Note Date: 02/21/25 Principal diagnosis: 1. 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 C5-7 STENOSIS WITH RADICULOPATHY 3. BUE PARESTHESIAS 4. NECK PAIN Patient was seen at bedside this morning sitting up on 4 S. with soft c-collar in place and postoperative surgical dressing in place over the anterior cervical spine. Patient says he is having some pain in the shoulder blades at this time. Patient says he has better appetite today but still feels lump in throat when swallowing. Patient states he is not having the pain down the lower right arm into the right fifth digit at this time. Patient says he has been up walking several times under his own power since surgery yesterday without issue. Patient states he has urinated since surgery without any issue. Patient states no bowel movement yet, however he says he has been passing gas. Objective - Vital Signs Vital signs: Vital Signs Temp 98.5 F 02/21/25 07:58 Pulse 68 02/21/25 07:58 Resp 17 02/21/25 07:58 BP 115/77 02/21/25 07:58 Pulse Ox 97 02/21/25 07:58 FiO2 Intake & Output 02/20/25 02/21/25 02/21/25 18:59 06:59 18:59 Other: Voiding Method Toilet Toilet # Voids 5 2 # Bowel Movements 0 - Exam Incision appears to be healing well. Dressing changed at bedside this morning. soft c-collar in place. Sensation improving down the right upper extremity along dermatomes of C5-C7. Sensation is equal, symmetric, bilaterally intact throughout the rest of the upper extremities and lower extremities on exam. There is some moderate tenderness to palpation near incision. Nontender throughout rest of exam. Patient does have similar range of motion of bilateral shoulder secondary to for stiffness and pain in the upper back/lower cervical spine. Patient does have full range of motion throughout elbows and wrists bilaterally in flexion/tension. 4/5 in all major motor groups in bilateral upper extremities. Radial pulse intact, 2+ bilaterally. Cap refill under 3 seconds in digits of upper extremities. Negative Priscilla bilaterally. Negative clonus bilaterally. Negative Homans bilaterally. - Labs CBC & Chem 7: 02/19/25 03:41 02/19/25 03:41 Assessment and Plan Assessment: 1. 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 C5-7 STENOSIS WITH RADICULOPATHY 3. BUE PARESTHESIAS 4. NECK PAIN - Postop day 3 status post C5-C7 ACDF Plan: 1. 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 soft c-collar in place. Surgical dressing in place over anterior cervical spine. Dressing changed today. Pain medication as needed. Discharge home today 2. Appreciate medical management 3. Pain management -Percocet; gabapentin 4. DVT prophylaxis - mechanical 5. GI prophylaxis - senna 6. PT/OT -soft c-collar on at all times. WBAT 7. Encourage incentive spirometer use 8. Discharge planning -discharge home today Time with Patient: Less than 30
== END 2025-02-21 11:59 | disposition home or self-care (01) ==
LOC: OR 11:22 → 4SSUR 15:17 → OR 02-21 11:59
PROVIDERS: ATTEND Orthopaedic Surgery
DX: M47.22 Other spondylosis with radiculopathy, cervical region (principal); M50.122 Cervical disc disorder at C5-C6 level with radiculopathy; M48.02 Spinal stenosis, cervical region; G89.18 Other acute postprocedural pain; K21.9 Gastro-esophageal reflux disease without esophagitis; R13.10 Dysphagia, unspecified; F17.290 Nicotine dependence, other tobacco product, uncomplicated; F19.11 Other psychoactive substance abuse, in remission; Z79.899 Other long term (current) drug therapy; Z86.19 Personal history of other infectious and parasitic diseases; Z88.5 Allergy status to narcotic agent; Z88.8 Allergy status to other drugs, medicaments and biological substances
CPT/HCPCS: 22551; 22552; 22853 ×2; 22845; 20930; 20936; 97161; 80048; 85025; 72040; 72125; J0690 ×2; J2405; J1171 ×3

== ENCOUNTER 2025-02-25 14:48 | Emergency (ER) | payer OTHER ==
[2025-02-25 14:54] VITALS: RESP 18
[2025-02-25] MEDS ORDERED: KETOROLAC 15 MG/ML 1 ML VIAL IM STA (15:40)
--- NOTE | 2025-02-25 15:45 | ED ---
Neck Injury/Pain HPI - General Chief Complaint: Neck Pain/Injury Stated Complaint: Post-op pain Time Seen by Provider: 02/25/25 15:00 Mode of arrival: ambulatory Limitations: no limitations - History of Present Illness Initial Comments: 34-year-old male presenting with chief complaint of postoperative pain. Patient had a C5-C7 fusion on Friday was discharged this past Friday. His surgeon is Dr. García. He was told to contact the office if he was still having pain after he ran out of his pain medication. However today 25 February and he is unable to get in contact with the office. States that he is not having any changes in his pain and this is his regular postoperative pain that he has been dealing with. No fevers. No injury or trauma. He has been taking Percocet 7.5. - Related Data Home Medications Medication Instructions Recorded Confirmed Ibuprofen [Motrin Ib] 800 mg PO Q8HR PRN 02/14/25 02/18/25 Previous Rx's Medication Instructions Recorded Gabapentin [Neurontin] 300 mg PO TID #30 cap 02/21/25 Sennosides/Docusate Sodium [Senna 1 each PO DAILY #20 capsule 02/21/25 Plus 8.6-50 mg Softgel] cefaDROXiL [Duricef] 500 mg PO Q12HR 5 Days #10 cap 02/21/25 hydrOXYzine pamoate [Vistaril] 25 mg PO TID PRN #21 cap 02/21/25 oxyCODONE HCL/ACETAMINOPHEN 1 tab PO Q6HR PRN #16 tab 02/21/25 [Percocet 7.5-325 mg] oxyCODONE-APAP 7.5-325MG [Percocet 1 tab PO Q6HR PRN 3 Days #12 tab 02/25/25 7.5-325 mg] Allergies Allergy/AdvReac Type Severity Reaction Status Date / Time methylprednisolone AdvReac double Verified 02/25/25 14:54 vision Review of Systems ROS Statement: Those systems with pertinent positive or pertinent negative responses have been documented in the HPI. ROS Other: All systems not noted in ROS Statement are negative. Past Medical History Past Medical History: Liver Disease Additional Past Medical History / Comment(s): collapsed lung had a chest tube once- states he is too young to remember why it happened, herniated disk. 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 History of Any Multi-Drug Resistant Organisms: None Reported Past Surgical History: No Surgical Hx Reported Past Psychological History: Anxiety, Bipolar, Depression Smoking Status: Vaper Past Alcohol Use History: Occasional Past Drug Use History: Opiates, Prescription Drug Abuse General Exam Limitations: no limitations General appearance: alert, in no apparent distress Head exam: Present: atraumatic, normocephalic, normal inspection Eye exam: Present: normal appearance, EOMI Neck exam: Present: normal inspection (patient is in a soft collar) Respiratory exam: Absent: respiratory distress Cardiovascular Exam: Present: regular rate Neurological exam: Present: alert, oriented X3 Psychiatric exam: Present: normal affect, normal mood Skin exam: Present: warm, dry Course Vital Signs 02/25/25 02/25/25 14:49 15:55 Temperature 97.9 F 98.1 F Pulse Rate 104 H 77 Respiratory 18 18 Rate Blood Pressure 115/69 122/83 O2 Sat by Pulse 95 96 Oximetry Medical Decision Making - Medical Decision Making Was pt. sent in by a medical professional or institution (KAREN Macedo, ROOF FOREMAN, urgent care, hospital, or group home...) When possible be specific @ -No Did you speak to anyone other than the patient for history (EMS, parent, family, police, friend...)? What history was obtained from this source @ -No Did you review nursing and triage notes (agree or disagree)? Why? @ -I reviewed and agree with nursing and triage notes Were old charts reviewed (outside hosp., previous admission, EMS record, old EKG, old radiological studies, urgent care reports/EKG's, group home records)? Report findings @ -No old charts were reviewed Differential Diagnosis (chest pain, altered mental status, abdominal pain women, abdominal pain men, vaginal bleeding, weakness, fever, dyspnea, syncope, headache, dizziness, GI bleed, back pain, seizure, CVA, palpatations, mental health, musculoskeletal)? @ -Differential includes postoperative pain, radiculopathy, muscle spasm, not an all-inclusive list EKG interpreted by me (3pts min.). @ -As above X-rays interpreted by me (1pt min.). @ -None done CT interpreted by me (1pt min.). @ -None done U/S interpreted by me (1pt. min.). @ -None done What testing was considered but not performed or refused? (CT, X-rays, U/S, labs)? Why? @ -None What meds were considered but not given or refused? Why? @ -None Did you discuss the management of the patient with other professionals (professionals i.e. , PA, ROOF FOREMAN, lab, RT, psych nurse, social services, button sewing machine operator, teacher, driver license reviewing officer, outsole caser)? Give summary @ -No Was smoking cessation discussed for >3mins.? @ -No Was critical care preformed (if so, how long)? @ -No Were there social determinants of health that impacted care today? How? (Homelessness, low income, unemployed, alcoholism, drug addiction, transportation, low edu. Level, literacy, decrease access to med. care, [place] [facility], rehab)? @ -No Was there de-escalation of care discussed even if they declined (Discuss DNR or withdrawal of care, Hospice)? DNR status @ -No What co-morbidities impacted this encounter? (DM, HTN, Smoking, COPD, CAD, Cancer, CVA, ARF, Chemo, Hep., AIDS, mental health diagnosis, sleep apnea, morbid obesity)? @ -None Was patient admitted / discharged? Hospital course, mention meds given and route, prescriptions, significant lab abnormalities, going to OR and other pertinent info. @ -34-year-old male presented with chief complaint of neck pain. He had recent surgery and recently ran out of his postop pain medication. As today is 25 February he was unable to get in contact with the office. No new injury or trauma. No change in his pain. He is given a 3-day supply of his previously prescribed Percocet and he will follow-up with his surgeon. Follow-up with PCP. Report back to ER with any new or worsening symptoms. Discussed return parameters and answered all questions. Patient conveyed verbal understanding and agreed to the plan. I discussed this case in detail with my attending Dr. Fischer Undiagnosed new problem with uncertain prognosis? @ -No Drug Therapy requiring intensive monitoring for toxicity (Heparin, Nitro, Insulin, Cardizem)? @ -No Were any procedures done? @ -No Diagnosis/symptom? @ -Postop pain Acute, or Chronic, or Acute on Chronic? @ -Acute Uncomplicated (without systemic symptoms) or Complicated (systemic symptoms)? @ -Uncomplicated Side effects of treatment? @ -No Exacerbation, Progression, or Severe Exacerbation? @ -No Poses a threat to life or bodily function? How? (Chest pain, [place], [place], pneumonia, PE, COPD, DKA, ARF, appy, cholecystitis, CVA, Diverticulitis, Homicidal, Suicidal, threat to staff... and all critical care pts) @ -Unlikely Disposition Clinical Impression: Neck pain Disposition: HOME SELF-CARE Condition: Good Additional Instructions: Follow-up with your surgeon and follow your postoperative instructions. Report back to ER with any new or worsening symptoms. Prescriptions: oxyCODONE-APAP 7.5-325MG [Percocet 7.5-325 mg] 1 tab PO Q6HR PRN 3 Days #12 tab PRN Reason: Pain Is patient prescribed a controlled substance at d/c from ED?: Yes When asked, does pt state using other controlled substances?: No If prescribed controlled substance>3 days was MAPS reviewed?: Prescribed <3 Days If opioid is for acute pain is fill amount 7 days or less?: Yes Referrals: Cullen Contreras MD [Primary Care Provider] - 1-2 days Time of Disposition: 15:45
[2025-02-25] MEDS: HYDROmorphone 1 MG/ML 1 ML SYRINGE IM STA (15:52)
[2025-02-25] MEDS: ACET/COD 300 MG/30 MG STARTER PACK TAB BTL PO STA (15:53)
[2025-02-25 15:56] VITALS: BP 122/83; PULSE 77; TEMP 98.1
== END 2025-02-25 16:00 | disposition home or self-care (01) ==
LOC: EC 14:48
DX: G89.18 Other acute postprocedural pain (principal); M54.2 Cervicalgia; F17.290 Nicotine dependence, other tobacco product, uncomplicated; Z88.8 Allergy status to other drugs, medicaments and biological substances
CPT/HCPCS: 99283; 96372; J1171

== ENCOUNTER 2025-02-27 17:06 | Emergency (ER) | payer OTHER ==
[2025-02-27 17:23] VITALS: TEMP 97.9
[2025-02-27] MEDS: MORPHINE SULFATE 4 MG/ML SYRINGE IM STA (18:03)
[2025-02-27] MEDS: KETOROLAC 15 MG/ML 1 ML VIAL IM STA (18:05)
--- NOTE | 2025-02-27 18:49 | ED ---
Neck Injury/Pain HPI - General Chief Complaint: Neck Pain/Injury Stated Complaint: Back/neck/shoulder pain, post op Time Seen by Provider: 02/27/25 17:26 Mode of arrival: ambulatory Limitations: no limitations - History of Present Illness Initial Comments: 34-year-old male presenting with chief complaint of neck pain. Patient had a cervical fusion last week with Dr. García. He has been taking his prescribed pain medications he reports that he is still having a lot of soreness. He has had no new falls or injuries. States the pain radiates from his neck down his back. No radiation of pain into the upper extremities. Patient does have history of opiate abuse and may have a higher tolerance to his pain medication. He has had no fevers. No redness swelling or changes around his surgical site. He has been wearing the soft collar as instructed. - Related Data Home Medications Medication Instructions Recorded Confirmed Ibuprofen [Motrin Ib] 800 mg PO Q8HR PRN 02/14/25 02/18/25 Previous Rx's Medication Instructions Recorded Gabapentin [Neurontin] 300 mg PO TID #30 cap 02/21/25 Sennosides/Docusate Sodium [Senna 1 each PO DAILY #20 capsule 02/21/25 Plus 8.6-50 mg Softgel] cefaDROXiL [Duricef] 500 mg PO Q12HR 5 Days #10 cap 02/21/25 hydrOXYzine pamoate [Vistaril] 25 mg PO TID PRN #21 cap 02/21/25 oxyCODONE HCL/ACETAMINOPHEN 1 tab PO Q6HR PRN #16 tab 02/21/25 [Percocet 7.5-325 mg] oxyCODONE-APAP 7.5-325MG [Percocet 1 tab PO Q6HR PRN 3 Days #12 tab 02/25/25 7.5-325 mg] Allergies Allergy/AdvReac Type Severity Reaction Status Date / Time methylprednisolone AdvReac double Verified 02/27/25 17:22 vision Review of Systems ROS Statement: Those systems with pertinent positive or pertinent negative responses have been documented in the HPI. ROS Other: All systems not noted in ROS Statement are negative. Past Medical History Past Medical History: Liver Disease Additional Past Medical History / Comment(s): collapsed lung had a chest tube once- states he is too young to remember why it happened, herniated disk. 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 Absent: tenderness Respiratory exam: Absent: respiratory distress Cardiovascular Exam: Present: regular rate Neurological exam: Present: alert, oriented X3 Expanded Sensory exam: Upper Extremity Light Touch: Normal, Lower Extremity Light Touch: Normal Motor strength exam: RUE: 5, LUE: 5, RLE: 5, LLE: 5 Psychiatric exam: Present: normal affect, normal mood Skin exam: Present: other (Incision appears clean and well-approximated, no concerns for infection or dehiscence) Course Vital Signs 02/27/25 02/27/25 17:19 18:50 Temperature 97.9 F Pulse Rate 87 82 Respiratory 18 20 Rate Blood Pressure 108/70 110/74 O2 Sat by Pulse 94 L 97 Oximetry Medical Decision Making - Medical Decision Making Was pt. sent in by a medical professional or institution (KAREN Macedo, RESIDENT SERVICES COORDINATOR, urgent care, hospital, or intermediate...) When possible be specific @ -No Did you speak to anyone other than the patient for history (EMS, parent, family, police, friend...)? What history was obtained from this source @ -No Did you review nursing and triage notes (agree or disagree)? Why? @ -I reviewed and agree with nursing and triage notes Were old charts reviewed (outside hosp., previous admission, EMS record, old EKG, old radiological studies, urgent care reports/EKG's, intermediate records)? Report findings @ -No old charts were reviewed Differential Diagnosis (chest pain, altered mental status, abdominal pain women, abdominal pain men, vaginal bleeding, weakness, fever, dyspnea, syncope, headache, dizziness, GI bleed, back pain, seizure, CVA, palpatations, mental health, musculoskeletal)? @ -Differential Musculoskeletal Muscular strain, contusion, ligament sprain, fracture, arthritis, septic arthritis, bursitis, cellulitis, muscle spasm, nerve compression, DVT, arterial occlusion, herpes zoster, electrolyte abnormality, tumor.... This is not meant to be in all inclusive list EKG interpreted by me (3pts min.). @ -As above X-rays interpreted by me (1pt min.). @ -None done CT interpreted by me (1pt min.). @ -None done U/S interpreted by me (1pt. min.). @ -None done What testing was considered but not performed or refused? (CT, X-rays, U/S, labs)? Why? @ -None What meds were considered but not given or refused? Why? @ -None Did you discuss the management of the patient with other professionals (professionals i.e. , PA, RESIDENT SERVICES COORDINATOR, lab, RT, psych nurse, social services manager, sanitation lead, teacher, global chief experience officer, adult protective caseworker)? Give summary @ -No Was smoking cessation discussed for >3mins.? @ -No Was critical care preformed (if so, how long)? @ -No Were there social determinants of health that impacted care today? How? (Homelessness, low income, unemployed, alcoholism, drug addiction, transportation, low edu. Level, literacy, decrease access to med. care, [facility], rehab)? @ -No Was there de-escalation of care discussed even if they declined (Discuss DNR or withdrawal of care, Hospice)? DNR status @ -No What co-morbidities impacted this encounter? (DM, HTN, Smoking, COPD, CAD, Cancer, CVA, ARF, Chemo, Hep., AIDS, mental health diagnosis, sleep apnea, morbid obesity)? @ -None Was patient admitted / discharged? Hospital course, mention meds given and route, prescriptions, significant lab abnormalities, going to OR and other pertinent info. @ -34-year-old male presenting with chief complaint of neck pain. He had recent surgery with Dr. Ann said last week. He has been taking his prescribed pain medication. No new injury or trauma. He has no weakness on exam. He has full sensation on exam. He is ambulating without difficulty. Patient does have history of previous opiate abuse seems that this is affecting the efficacy of his pain medication. He is provided with pain medication here in the ER. He is instructed to follow-up with his surgeon tomorrow morning. Follow-up with PCP. Report back to ER with any new or worsening symptoms. Discussed return parameters and answered all questions. Patient conveyed verbal understanding and agreed to the plan. I discussed this case in detail with my attending Dr. Castillo Undiagnosed new problem with uncertain prognosis? @ -No Drug Therapy requiring intensive monitoring for toxicity (Heparin, Nitro, Insulin, Cardizem)? @ -No Were any procedures done? @ -No Diagnosis/symptom? @ -Postoperative pain Acute, or Chronic, or Acute on Chronic? @ -Acute Uncomplicated (without systemic symptoms) or Complicated (systemic symptoms)? @ -uncomplicated Side effects of treatment? @ -No Exacerbation, Progression, or Severe Exacerbation? @ -No Poses a threat to life or bodily function? How? (Chest pain, [place], [place], pneumonia, PE, COPD, DKA, ARF, appy, cholecystitis, CVA, Diverticulitis, Homicidal, Suicidal, threat to staff... and all critical care pts) @ -Unlikely Disposition Clinical Impression: Neck pain, Post-op pain Disposition: HOME SELF-CARE Condition: Good Additional Instructions: Follow-up with your surgeon tomorrow. Report back to ER with any new or worsening symptoms. Is patient prescribed a controlled substance at d/c from ED?: No Referrals: Cullen Contreras MD [Primary Care Provider] - 1-2 days Time of Disposition: 18:49
[2025-02-27 18:51] VITALS: BP 110/74; PULSE 82; RESP 20
[2025-02-27] MEDS: HYDROmorphone 0.5 MG/0.5 ML SYRINGE IM STA (18:56)
== END 2025-02-27 19:00 | disposition home or self-care (01) ==
LOC: EC 17:06
DX: G89.18 Other acute postprocedural pain (principal); M54.2 Cervicalgia; F17.290 Nicotine dependence, other tobacco product, uncomplicated; Z88.8 Allergy status to other drugs, medicaments and biological substances
CPT/HCPCS: 99283; 96372 ×3; J2270; J1885; J1171